=== PATIENT | male | born 1960 | race African-American/Black ===

== ENCOUNTER 2017-02-20 10:13 | Inpatient (IN) | payer OTHER ==
--- NOTE | 2017-02-20 10:45 | PDOC ---
History of Present Illness - General Chief Complaint: Chest Pain Stated Complaint: CHEST PAIN, SOB Time Seen by Provider: 02/20/17 10:30 History Source: Patient Exam Limitations: No Limitations Past History - Past Medical History Allergies/Adverse Reactions: Allergies Allergy/AdvReac Type Severity Reaction Status Date / Time No Known Allergies Allergy Verified 02/20/17 10:14 Home Medications: Ambulatory Orders Amlodipine Besylate 1 tab PO DAILY 03/14/16 Enalapril Maleate 1 tab PO BID 03/14/16 Hydralazine HCl 1 tab PO BID 03/14/16 HTN: Yes Other medical history: SLEEP APNEA,MORBID OBESITY - Psycho/Social/Smoking Cessation Hx Anxiety: No Suicidal Ideation: No Smoking History: Never smoked Have you smoked in the past 12 months: No Information on smoking cessation initiated: No Hx Alcohol Use: No Drug/Substance Use Hx: No Substance Use Type: None *Physical Exam - Vital Signs Last Vital Signs Temp Pulse Resp BP Pulse Ox 98.0 F 69 24 151/94 91 L 02/20/17 10:15 02/20/17 10:15 02/20/17 10:15 02/20/17 10:15 02/20/17 10:15 Heart Score/ECG Review #1 ECG reviewed & interpreted by me at: 10:47 - ECG Intrepretation Comment:: 02/20/17 10:47 Twelve-lead EKG was performed and reviewed by me. There is normal sinus rhythm with a normal rate of 67 bpm. The axis is normal. The intervals are normal - pr: 198ms, QRS:100ms QTc:464. There are no ST or T wave abnormalities. Impression: Normal twelve-lead EKG
[2017-02-20 11:14] LABS: BASOPHIL 0.9 % (0-2.0); MCHC 31.3 g/dl (32.0-35.9); MEAN PLT VOLUME 8.5 fl (7.5-11.1); NEUTROPHILS 69.5 % (42.8-82.8); PLATELET COUNT 149 K/MM3 (134-434); RDW 18.9 % (11.9-15.9); WHITE BLOOD COUNT 5.5 K/mm3 (4.0-10.0)
[2017-02-20 11:26] LABS: INR 1.18 (0.82-1.09)
--- NOTE | 2017-02-20 11:28 | PDOC ---
History of Present Illness - General Chief Complaint: Chest Pain Stated Complaint: CHEST PAIN, SOB Time Seen by Provider: 02/20/17 10:30 History Source: Patient Exam Limitations: No Limitations - History of Present Illness Initial Comments: 57 yo M with h/o HTN, ?COPD, ?CHF, chronic venous stasis, chronic kidney failure presented to the ED with increasing shortness of breath. Patient stated that he's experiencing increasing exercise intolerance in that he can only walk less than a block and uses 2-3 pillows in order to breath smoothly. He also had intermittent exertional chest pain, 6/10, felt like chip in the heart, resolves in minutes, non-radiating. He denies active chest pain on this admission. Further denies fever, chills, cough, n/v, abd pain, headache, urinary or bowel movement. Past History - Travel Traveled outside of the country in the last 30 days: No - Past Medical History Allergies/Adverse Reactions: Allergies Allergy/AdvReac Type Severity Reaction Status Date / Time No Known Allergies Allergy Verified 02/20/17 10:14 Home Medications: Ambulatory Orders Amlodipine Besylate [Norvasc -] 5 mg PO DAILY 02/20/17 Aspirin [ASA -] 81 mg PO DAILY 02/20/17 Enalapril Maleate [Vasotec] 20 mg PO DAILY 02/20/17 Furosemide [Lasix] 80 mg PO DAILY 02/20/17 Hydralazine HCl 100 mg PO BID 02/20/17 Labetalol HCl [Normodyne -] 600 mg PO BID 02/20/17 Simvastatin [Zocor -] 20 mg PO HS 02/20/17 COPD: Yes (Possible but Patient denies) CHF: Yes (Possible but Patient denies) HTN: Yes Other medical history: SLEEP APNEA,MORBID OBESITY - Psycho/Social/Smoking Cessation Hx Anxiety: No Suicidal Ideation: No Smoking History: Never smoked Have you smoked in the past 12 months: No Information on smoking cessation initiated: No Hx Alcohol Use: No Drug/Substance Use Hx: No Substance Use Type: None Respiratory Specific PMHX - Complaint Specific PMHX Angina: Yes (intermittent) Review of Systems - Review of Systems Respiratory: Yes: Shortness of Breath, SOB with Exertion Cardiac (ROS): Yes: Chest Pain *Physical Exam - Vital Signs Last Vital Signs Temp Pulse Resp BP Pulse Ox 98.0 F 69 24 151/94 91 L 02/20/17 10:15 02/20/17 10:15 02/20/17 10:15 02/20/17 10:15 02/20/17 10:15 - Physical Exam General Appearance: No: Apparent Distress HEENT: positive: Pharynx Normal. negative: Pharyngeal Erythema, Tonsillar Exudate Neck: positive: Trachea midline, Supple Respiratory/Chest: positive: Rhonchi Cardiovascular: positive: Regular Rhythm, Regular Rate, S1, S2. negative: Diastolic Murmur, Systolic Murmur, Gallop/S3, Gallop/S4 Gastrointestinal/Abdominal: positive: Normal Bowel Sounds, Other (obese) Extremity: positive: Swelling (+2) Neurologic: positive: Fully Oriented, Alert, Normal Mood/Affect ED Treatment Course - LABORATORY CBC & Chemistry Diagram: 02/21/17 06:20 02/22/17 06:20 Medical Decision Making - Medical Decision Making 02/20/17 11:32 Awaits CBC, CMP, Mg, BNP, CXR results 02/20/17 13:[address] Damon, will admit patient to telemetry for further management. Renal consult under Dr. Woodson, pulmonary consult under Dr. Michael and Cardiology consult under Dr. Hickman. *DC/Admit/Observation/Transfer Diagnosis at time of Disposition: Exacerbation of chronic obstructive pulmonary disease associated with exposure to volcanic air pollution - Discharge Dispostion Admit: Yes Decision to Admit order Date/Time: 02/20/17 13:[address] Damon, will admit patient to telemetry for further management. Renal consult under Dr. Woodson, pulmonary consult under Dr. Michael and Cardiology consult under Dr. Hickman. - Referrals
[2017-02-20 11:31] LABS: ALBUMIN 2.8 g/dl (3.4-5.0); BILIRUBIN,TOTAL 0.5 mg/dL (0.2-1.0); COCKROFT - GAULT 24.43; CREATININE 6.8 mg/dL (0.7-1.3); TOT PROT 6.1 g/dl (6.4-8.2)
[2017-02-20 11:34] LABS: TROPONIN I 0.05 ng/ml (0.00-0.05)
[2017-02-20] MEDS ORDERED: SODIUM POLYSTYRENE SULFONATE 15 GM/60 ML BOTTLE PO ONE (13:43)
[2017-02-20] MEDS ORDERED: CALCIUM GLUCONATE 10% - 1,000 MG/10 ML VIAL IVPUSH ONE (13:50)
[2017-02-20] MEDS ORDERED: CALCIUM GLUCONATE 10% - 1,000 MG/10 ML VIAL IVPB ONE (13:50)
--- NOTE | 2017-02-20 14:35 | PDOC ---
Attending Attestation - Resident Resident Name: Guilherme Bautista - ED Attending Attestation I have performed the following: I have examined & evaluated the patient, The case was reviewed & discussed with the resident, I agree w/resident's findings & plan, Exceptions are as noted - HPI HPI: 02/20/17 14:18 This is a 57 yo M h/o renal insufficiency, DM, HTN Presenting to the ER with a complaint of progressive shortness of breath Decreased urine output No fevers or chills No abdominal pain - Physicial Exam PE: 02/21/17 19:59 Nad, fatigued jvd elevated, neck supple rrr nl s1, s2 2/6 sys murmur at apex diffuse crackles/wheezes, poor air movement. + bs soft nt nd ext with 1+ le edema L>R. no cyanosis, clubbing no jaundice, diaphoresis - Critical Care Time Total Critical Care Time: 35 Critical Care Statement: The care of this patient involved high complexity decision making to prevent further life threatening deterioration of the patient 's condition and/or to evalute & treat vital organ system(s) failure or risk of failure. - Medical Decision Making 57 yo M presenting with signs of fluid overloading in the setting of worsening renal function Labs performed and demonstrate elevated creatinine, K=5.6 No peaked T waves, will give Calcium Gluconate Consult placed to Dr Mancia who has seen this patient in the ER Pt admitted
[2017-02-20 14:55] LABS: URINE APPEARANCE CLEAR; URINE BILIRUBIN NEGATIVE (NEGATIVE); URINE BLOOD NEGATIVE (NEGATIVE); URINE COLOR LTYELLOW; URINE GLUCOSE (UA) NEGATIVE (NEGATIVE); URINE KETONE NEGATIVE (NEGATIVE); URINE LEUK ESTERASE NEGATIVE (NEGATIVE); URINE NITRITE NEGATIVE (NEGATIVE); URINE UROBILINOGEN NEGATIVE E.U./dl (0.2-1.0)
[2017-02-20 14:57] LABS: URINE PROTEIN 2+ (NEGATIVE)
[2017-02-20 15:07] LABS: URINE BACTERIA RARE /hpf (NONE SEEN); URINE RBC 3 /hpf (0-3); URINE WBC 4 /hpf (3-5)
--- NOTE | 2017-02-20 15:32 | CONSULT ---
Consult Consult Specialty:: Nephrology Reason for Consultation:: CKD - History of Present Illness Chief Complaint: shortness of breath History of Present Illness: Pt is a 57 year old male with pmhx of HTN, COPD, CHF, and CKD who presents to the ER with increasing shortness of breath and wheeze. He says he feels increased SOB with minimal exertion. He says he is aware that he has chronic kidney disease however he has not seen a mine motor engineer yet. He also complains of lower extermity edema. He does take lasix at home. He denies dysuria or hematuria. He is unsure of the etiology of his kidney disease. - History Source History Provided By: Patient, Medical Record - Past Medical History Cardio/Vascular: Yes: CHF, HTN, Hyperlipdemia Renal/: Yes: Renal Inusuff - Alcohol/Substance Use Hx Alcohol Use: No - Smoking History Smoking history: Never smoked Have you smoked in the past 12 months: No Home Medications - Allergies Allergies/Adverse Reactions: Allergies Allergy/AdvReac Type Severity Reaction Status Date / Time No Known Allergies Allergy Verified 02/20/17 10:14 - Home Medications Home Medications: Ambulatory Orders Amlodipine Besylate [Norvasc -] 5 mg PO DAILY 02/20/17 Aspirin [ASA -] 81 mg PO DAILY 02/20/17 Enalapril Maleate [Vasotec] 20 mg PO DAILY 02/20/17 Furosemide [Lasix] 80 mg PO DAILY 02/20/17 Hydralazine HCl 100 mg PO BID 02/20/17 Labetalol HCl [Normodyne -] 600 mg PO BID 02/20/17 Simvastatin [Zocor -] 20 mg PO HS 02/20/17 Family Disease History - Family Disease History Family History: Denies Review of Systems - Review of Systems Constitutional: reports: Malaise Eyes: reports: No Symptoms HENT: reports: No Symptoms Neck: reports: No Symptoms Cardiovascular: reports: Edema, Shortness of Breath Respiratory: reports: Cough, SOB, SOB on Exertion, Wheezing Gastrointestinal: reports: No Symptoms Genitourinary: reports: No Symptoms Musculoskeletal: reports: No Symptoms Integumentary: reports: No Symptoms Endocrine: reports: No Symptoms Hematology/Lymphatic: reports: No Symptoms Psychiatric: reports: No Symptoms Physical Exam Vital Signs: Vital Signs Temperature 98.0 F 02/20/17 10:15 Pulse Rate 62 02/20/17 15:22 Respiratory Rate 21 02/20/17 15:22 Blood Pressure 139/71 02/20/17 15:22 O2 Sat by Pulse Oximetry (%) 97 02/20/17 15:22 Constitutional: Yes: Calm Eyes: Yes: Conjunctiva Clear HENT: Yes: Atraumatic Neck: Yes: Supple Cardiovascular: Yes: S1, S2 Respiratory: Yes: CTA Bilaterally Gastrointestinal: Yes: Soft, Abdomen, Obese Renal/: Yes: WNL Musculoskeletal: Yes: WNL Edema: Yes Edema: LLE: 2+, RLE: 2+ Neurological: Yes: Oriented Psychiatric: Yes: Oriented Labs: Laboratory Tests 02/20/17 02/20/17 02/20/17 10:53 10:53 10:53 WBC 5.5 Hgb 8.4 L Plt Count 149 INR 1.18 H Sodium 141 Potassium 5.7 H Chloride 109 H Carbon Dioxide 19 L Anion Gap 13 BUN 70 H Creatinine 6.8 H Creat Clearance w eGFR 8.46 Random Glucose 86 Calcium 8.0 L B-Natriuretic Peptide Urine Color Urine Appearance Urine pH Ur Specific [place] Urine Protein Urine Glucose (UA) Urine Ketones Urine Blood Urine Nitrite Urine Bilirubin Urine Urobilinogen Ur Leukocyte Esterase 02/20/17 02/20/17 10:53 14:32 WBC Hgb Plt Count INR Sodium Potassium Chloride Carbon Dioxide Anion Gap BUN Creatinine Creat Clearance w eGFR Random Glucose Calcium B-Natriuretic Peptide 60943.52 H Urine Color Ltyellow Urine Appearance Clear Urine pH 5.0 Ur Specific [place] 1.011 Urine Protein 2+ H Urine Glucose (UA) Negative Urine Ketones Negative Urine Blood Negative Urine Nitrite Negative Urine Bilirubin Negative Urine Urobilinogen Negative Ur Leukocyte Esterase Negative Imaging - Results Chest X-ray: Report Reviewed Problem List - Problems (1) CKD (chronic kidney disease) Code(s): N18.9 - CHRONIC KIDNEY DISEASE, UNSPECIFIED (2) HTN (hypertension) Code(s): I10 - ESSENTIAL (PRIMARY) HYPERTENSION (3) CHF (congestive heart failure) Code(s): I50.9 - HEART FAILURE, UNSPECIFIED (4) Hyperkalemia Code(s): E87.5 - HYPERKALEMIA Assessment/Plan Current Medications Generic Name Dose Route Start Last Admin Trade Name Freq PRN Reason Stop Dose Admin Amlodipine Besylate 5 mg 02/21/17 10:00 Norvasc - PO DAILY MEME Aspirin 81 mg 02/21/17 10:00 Asa - PO DAILY MEME Atorvastatin Calcium 10 mg 02/20/17 22:00 Lipitor - PO HS MEME Furosemide 80 mg 02/21/17 10:00 Lasix - PO DAILY MEME Heparin Sodium (Porcine) 5,000 unit 02/20/17 18:00 Heparin - SQ Q8H-IV MEME Hydralazine HCl 100 mg 02/20/17 22:00 Apresoline - PO BID MEME Labetalol HCl 600 mg 02/20/17 22:00 Normodyne - PO BID MEME Impression 1. CKD with unclear baseline 2. CHF 3. HTN 4. obesity 5. hyperlipidemia 6. hyperkalemia Plan - place joel catheter and monitor output - will send prelim renal workup - will consult vascular Dr Hernandez - will need to obtain outpt records - recommend holding ale inhibitor for now (pt was on vasotec) - will treat potassium medically - discussed possibility of HD with pt - get echo - monitor pulse ox - will follow Dr Mancia
--- NOTE | 2017-02-20 15:33 | CON.CARD ---
Cardiology Consult (text) - Consultation Consultation Note: CC: sob 57 yo HTN, HPL,morbid obesity, CAD (ab stress - tx medically due to high risk for ATN) severe KIM, ESRD who presents with sob. poor historian. states he developed a cold in the past day. + sob, cough, nasal congestion, myalgias, fatigue. endoreses adherence to lasix + orthopnea, pnd, LE edema, no cp, palps, no f/c/s, n/v/d, visual disturbances, rashes. Used to see Dr. Rasheed pmhx/pshx; per hpi fam hx: no cardiac hx social hx: former tobacco, no etoh ros: per phi Ambulatory Orders Amlodipine Besylate [Norvasc -] 5 mg PO DAILY 02/20/17 Aspirin [ASA -] 81 mg PO DAILY 02/20/17 Enalapril Maleate [Vasotec] 20 mg PO DAILY 02/20/17 Furosemide [Lasix] 80 mg PO DAILY 02/20/17 Hydralazine HCl 100 mg PO BID 02/20/17 Labetalol HCl [Normodyne -] 600 mg PO BID 02/20/17 Simvastatin [Zocor -] 20 mg PO HS 02/20/17 Current Medications Amlodipine Besylate (Norvasc -) 5 mg PO DAILY MEME Aspirin (Asa -) 81 mg PO DAILY MEME Atorvastatin Calcium (Lipitor -) 10 mg PO HS MEME Furosemide (Lasix -) 80 mg PO DAILY [facility] Heparin Sodium (Porcine) (Heparin -) 5,000 unit SQ Q8H-IV MEME Hydralazine HCl (Apresoline -) 100 mg PO BID [facility]E Labetalol HCl (Normodyne -) 600 mg PO BID [facility] Vital Signs - 24 hr 02/20/17 02/20/17 02/20/17 10:15 14:15 15:22 Temperature 98.0 F Pulse Rate 69 Pulse Rate [ 63 62 Apical] Respiratory 24 18 21 Rate Blood Pressure 151/94 Blood Pressure 144/75 139/71 [Left Arm] O2 Sat by Pulse 91 L 97 97 Oximetry (%) Intake & Output 02/18/17 02/19/17 02/20/17 02/21/17 07:59 07:59 07:59 07:59 Output Total 200 Balance -200 Weight 314 lb Nad, fatigued jvd elevated, neck supple rrr nl s1, s2 2/6 sys murmur at apex diffuse crackles/wheezes, poor air movement. tachypneic + bs soft nt nd ext with 1+ le edema. no cyanosis, clubbing diminished dp/pt no jaundice, diaphoresis no carotid bruit CBC, BMP 02/20/17 10:53 02/20/17 10:53 Laboratory Tests 02/20/17 02/20/17 02/20/17 10:53 10:53 14:32 Total Bilirubin 0.5 AST 25 ALT 25 Alkaline Phosphatase 66 Creatine Kinase 249 CK-MB (CK-2) 6.616 H Troponin I 0.05 B-Natriuretic Peptide 96403.52 H Albumin 2.8 L Urine Protein 2+ H EKG: nsr, no ischemic changes. CXR: clear. by my review mild pulmonary congestion, possible effusion. Echo 07/2014: normal LV/RV function, mod concentric LVH, no sig valv abn Echo 03/2013: normal LV/RV function, mild tp mod concentric LVH, no sig valv abn Stress MPI 03/2013: moderate anny-lateral scar and infero-lateral ischemia. enlarged LV 57 yo HTN, HPL,morbid obesity, CAD (ab stress - tx medically due to high risk for ATN) severe KIM, ESRD who presents with sob. SOB - Oxygenating well. Unclear if tired or if lethargic. If sleepiness persists tomorrow would get ABG to rule out hypercapnea. - by my review pulmonary congestion on cxr. s/p lasix 80mg IV in ER. Reassess regimen tomorrow - daily weights, i/o, bmp. need for HD per renal - pt with severe kim and desaturation on sleep study, bipap at night. eval/mgm' t of additional copd per pulm CAD - trop negative. ekg without acute ischemic changes - asa, statin. low threshold to hold beta sanket if my be contributing to bronchospasm. htn - controlled on current meds kim - bipap esrd -per renal
[2017-02-20] MEDS ORDERED: DEXTROSE 50%-WATER 50 ML DISP.SYRIN ONE (15:46)
[2017-02-20] MEDS ORDERED: INSULIN REGULAR HUMAN 100 UNITS/ML *VIAL ONE (15:47)
[2017-02-20] MEDS ORDERED: FUROSEMIDE 40 MG/4 ML INJECTABLE VIAL ONE (15:47)
[2017-02-20] MEDS: ALBUTEROL SO4 0.083% IH SOL 2.5 MG/3 ML VIAL.NEB. NEB SCH ×3 (15:53→17:24)
[2017-02-20] MEDS: INSULIN REGULAR HUMAN 100 UNITS/ML *VIAL IVPUSH ONE ×2 (15:53→16:13)
[2017-02-20] MEDS: DEXTROSE 50%-WATER 50 ML VIAL IVPUSH ONE ×2 (15:53→16:13)
[2017-02-20] MEDS: FUROSEMIDE 100 MG/10 ML INJECTABLE VIAL IVPB SCH ×2 (15:53→16:13)
[2017-02-20] MEDS ORDERED: ALBUTEROL SO4 0.083% IH SOL 2.5 MG/3 ML VIAL.NEB. NEB ONE (16:47)
[2017-02-20 18:07] LABS: CALCIUM 8.4 mg/dL (8.5-10.1); COCKROFT - GAULT 24.08; CREATININE 6.9 mg/dL (0.7-1.3)
[2017-02-20] MEDS ORDERED: HEPARIN NA (PORCINE) 5,000 UNITS/ML 1ML VIAL ONE (18:39)
[2017-02-20] MEDS: HEPARIN NA (PORCINE) 5,000 UNITS/ML 1ML VIAL SQ SCH (18:40)
--- NOTE | 2017-02-20 20:54 | PN ---
Progress Note (short form) - Note Progress Note: Laboratory Tests 02/20/17 17:17 Sodium 141 Potassium 5.3 H Carbon Dioxide 21 Anion Gap 12 BUN 71 H Creatinine 6.9 H Random Glucose 124 H D Labs reviewed. Potassium is improving. Repeat labs in am. Problem List - Problems (1) CKD (chronic kidney disease) Code(s): N18.9 - CHRONIC KIDNEY DISEASE, UNSPECIFIED (2) HTN (hypertension) Code(s): I10 - ESSENTIAL (PRIMARY) HYPERTENSION (3) CHF (congestive heart failure) Code(s): I50.9 - HEART FAILURE, UNSPECIFIED (4) Hyperkalemia Code(s): E87.5 - HYPERKALEMIA
[2017-02-20] MEDS ORDERED: hydrALAZINE HCL 25 MG TABLET (FP) ONE (22:23)
[2017-02-20] MEDS ORDERED: LABETALOL HCL 100 MG TABLET (FP) ONE ×2 (22:23→23:15)
[2017-02-20] MEDS ORDERED: ATORVASTATIN CA 40 MG TABLET (FP) ONE (22:23)
[2017-02-20] MEDS: ATORVASTATIN CA 10 MG TABLET (FP) PO SCH (23:23)
[2017-02-20] MEDS: LABETALOL HCL 200 MG TABLET (FP) PO SCH (23:23)
[2017-02-20] MEDS: hydrALAZINE HCL 50 MG TABLET (FP) PO SCH (23:23)
[2017-02-21] MEDS ORDERED: HEPARIN NA (PORCINE) 5,000 UNITS/ML 1ML VIAL ONE ×2 (01:51→19:22)
[2017-02-21] MEDS: HEPARIN NA (PORCINE) 5,000 UNITS/ML 1ML VIAL SQ SCH ×3 (01:52→19:34)
[2017-02-21 07:56] LABS: BASOPHIL 0.7 % (0-2.0); EOSINOPHIL 10.8 % (0-4.5); MCH 26.2 pg (25.7-33.7); MCHC 30.9 g/dl (32.0-35.9); MEAN CELL VOLUME 84.6 fl (80-96); MEAN PLT VOLUME 8.8 fl (7.5-11.1); NEUTROPHILS 70.5 % (42.8-82.8); PLATELET COUNT 158 K/MM3 (134-434); RDW 18.7 % (11.9-15.9); WHITE BLOOD COUNT 5.7 K/mm3 (4.0-10.0)
[2017-02-21 08:04] LABS: INR 1.08 (0.82-1.09); PROTHROMBIN TIME (PATIENT) 11.9 SEC (9.98-11.88)
[2017-02-21 08:07] LABS: ACTIVATED PTT 30.2 SECONDS (26.9-34.4)
[2017-02-21 08:13] LABS: CALCIUM 8.4 mg/dL (8.5-10.1); COCKROFT - GAULT 22.76; CREATININE 7.3 mg/dL (0.7-1.3); MAGNESIUM 2.3 mg/dL (1.8-2.4); TOT PROT 6.4 g/dl (6.4-8.2)
[2017-02-21 08:15] LABS: BILIRUBIN,TOTAL 0.3 mg/dL (0.2-1.0)
--- NOTE | 2017-02-21 09:56 | HP ---
Admitting History and Physical - Primary Care Physician PCP: Ed Boyer - Admission Chief Complaint: SOB, renal failure History of Present Illness: 57 yrs old male with severe KIM, obesity, HTN , hyperlipidemia, CAD and CKD comes to ER with worsening SOB. He has been having progressive SOB for many weeks. Also c/o pressure sensation to the chest , no radiation. Pt examined by me in ER-- he is drowsy , uses CPAP History Source: Patient Limitations to Obtaining History: No Limitations - Past Medical History Cardiovascular: Yes: CHF, HTN, Hyperlipdemia Pulmonary: Yes: Sleep Apnea Renal/: Yes: Renal Inusuff - Smoking History Smoking history: Never smoked Have you smoked in the past 12 months: No - Alcohol/Substance Use Hx Alcohol Use: No Home Medications - Allergies Allergies/Adverse Reactions: Allergies Allergy/AdvReac Type Severity Reaction Status Date / Time No Known Allergies Allergy Verified 02/20/17 10:14 - Home Medications Home Medications: Ambulatory Orders Amlodipine Besylate [Norvasc -] 5 mg PO DAILY 02/20/17 Aspirin [ASA -] 81 mg PO DAILY 02/20/17 Enalapril Maleate [Vasotec] 20 mg PO DAILY 02/20/17 Furosemide [Lasix] 80 mg PO DAILY 02/20/17 Hydralazine HCl 100 mg PO BID 02/20/17 Labetalol HCl [Normodyne -] 600 mg PO BID 02/20/17 Simvastatin [Zocor -] 20 mg PO HS 02/20/17 Review of Systems - Review of Systems Constitutional: reports: Weakness. denies: Chills, Fever, Loss of Appetite Cardiovascular: reports: Chest Pain, Shortness of Breath Respiratory: reports: SOB on Exertion. denies: Cough Physical Examination Vital Signs: Vital Signs Temperature 97.4 F L 02/21/17 08:00 Pulse Rate 68 02/21/17 08:00 Respiratory Rate 20 02/21/17 08:00 Blood Pressure 143/71 02/21/17 08:00 O2 Sat by Pulse Oximetry (%) 97 02/21/17 00:12 Constitutional: Yes: No Distress, Calm Cardiovascular: Yes: Regular Rate and Rhythm, Murmur Respiratory: Yes: Diminished, Rales, Rhonchi Gastrointestinal: Yes: Normal Bowel Sounds, Soft, Abdomen, Obese. No: Distention, Tenderness Edema: Yes Edema: LLE: 2+, RLE: 2+ Psychiatric: Yes: Alert Labs: CBC, BMP 02/21/17 06:20 02/21/17 06:20 Imaging - Results Chest X-ray: Image Reviewed (no infiltrate) Ultrasound: Report Reviewed (renal sono- multiple renal cysts, no dvt in legs sono) EKG: Image Reviewed (NSR, left atria enlargement) Problem List - Problems (1) Acute on chronic respiratory failure with hypoxia and hypercapnia Assessment/Plan: Check ABG Pulmonary eval will need CPAP nebs as needed Code(s): J96.21 - ACUTE AND CHRONIC RESPIRATORY FAILURE WITH HYPOXIA J96.22 - ACUTE AND CHRONIC RESPIRATORY FAILURE WITH HYPERCAPNIA (2) CHF (congestive heart failure) Assessment/Plan: check Echo on IV Lasix renal function worsening spoke with Public Health Sanitarian Technician Code(s): I50.9 - HEART FAILURE, UNSPECIFIED Qualifiers: Congestive heart failure type: diastolic Congestive heart failure chronicity: acute on chronic Qualified Code(s): I50.33 - Acute on chronic diastolic (congestive) heart failure (3) CKD (chronic kidney disease) Code(s): N18.9 - CHRONIC KIDNEY DISEASE, UNSPECIFIED (4) HTN (hypertension) Assessment/Plan: on meds monitor BP Code(s): I10 - ESSENTIAL (PRIMARY) HYPERTENSION Qualifiers: Hypertension type: essential hypertension Qualified Code(s): I10 - Essential (primary) hypertension (5) Hyperkalemia Code(s): E87.5 - HYPERKALEMIA (6) Sleep apnea Assessment/Plan: start CPAP Code(s): G47.30 - SLEEP APNEA, UNSPECIFIED Qualifiers: Sleep apnea type: obstructive Qualified Code(s): G47.33 - Obstructive sleep apnea (adult) (pediatric) (7) Acute on chronic renal failure Assessment/Plan: Worsening renal function pt does not have much urine out put Spoke with Renal Pt agreed for dialysis Monitor for hyperkalemia DVT prophylaxis-- Heparin sc Code(s): N17.9 - ACUTE KIDNEY FAILURE, UNSPECIFIED N18.9 - CHRONIC KIDNEY DISEASE, UNSPECIFIED
[2017-02-21] MEDS ORDERED: FUROSEMIDE 40 MG TABLET (FP) PO SCH (10:00)
[2017-02-21] MEDS ORDERED: ALBUTEROL SO4 2.5/IPRATROPIUM 0.5 INH SOL 3 ML VIAL.NEB. NEB PRN (10:09)
[2017-02-21] MEDS: hydrALAZINE HCL 50 MG TABLET (FP) PO SCH ×2 (10:17→23:29)
[2017-02-21] MEDS: ASPIRIN 81 MG CHEWABLE TABLETS PO SCH (10:17)
[2017-02-21] MEDS: amLODIPine BESYLATE 5 MG TABLET (FP) PO SCH (10:18)
[2017-02-21] MEDS: LABETALOL HCL 200 MG TABLET (FP) PO SCH ×2 (10:18→23:29)
[2017-02-21] MEDS: FUROSEMIDE 100 MG/10 ML INJECTABLE VIAL IVPB SCH ×2 (10:18→23:39)
--- NOTE | 2017-02-21 10:20 | PN ---
Progress Note (short form) - Note Progress Note: CC: sob S: breathing somewhat improved. not as fatigued. K improved yesterday after lasix, but elevated again this morning. no cp, palps, dizziness. Current Medications Albuterol/Ipratropium (Duoneb -) 1 amp NEB Q4H PRN PRN Reason: SHORTNESS OF BREATH Amlodipine Besylate (Norvasc -) 5 mg PO DAILY [facility] Last Admin: 02/21/17 10:18 Dose: 5 mg Aspirin (Asa -) 81 mg PO DAILY [facility] Last Admin: 02/21/17 10:17 Dose: 81 mg Atorvastatin Calcium (Lipitor -) 10 mg PO HS [facility] Last Admin: 02/20/17 23:23 Dose: 10 mg Furosemide (Lasix Injection -) 80 mg IVPB DAILY [facility] Last Admin: 02/21/17 10:18 Dose: 80 mg Heparin Sodium (Porcine) (Heparin -) 5,000 unit SQ Q8H-IV [facility] Last Admin: 02/21/17 10:17 Dose: 5,000 unit Hydralazine HCl (Apresoline -) 100 mg PO BID [facility] Last Admin: 02/21/17 10:17 Dose: 100 mg Labetalol HCl (Normodyne -) 600 mg PO BID [facility] Last Admin: 02/21/17 10:18 Dose: 600 mg Vital Signs - 24 hr 02/20/17 02/20/17 02/20/17 14:15 15:22 23:31 Temperature 97.3 F L Pulse Rate 66 Pulse Rate [ 63 62 Apical] Respiratory 18 21 18 Rate Blood Pressure 154/81 Blood Pressure 144/75 139/71 [Left Arm] O2 Sat by Pulse 97 97 Oximetry (%) 02/21/17 02/21/17 02/21/17 00:12 01:33 05:40 Temperature 97.9 F 98 F Pulse Rate 57 L 61 Pulse Rate [ Apical] Respiratory 19 18 Rate Blood Pressure 123/69 133/76 Blood Pressure [Left Arm] O2 Sat by Pulse 97 Oximetry (%) 02/21/17 08:00 Temperature 97.4 F L Pulse Rate 68 Pulse Rate [ Apical] Respiratory 20 Rate Blood Pressure 143/71 Blood Pressure [Left Arm] O2 Sat by Pulse Oximetry (%) Intake & Output 02/19/17 02/20/17 02/21/17 02/22/17 07:59 07:59 07:59 07:59 Output Total 2300 Balance -2300 Weight 314 lb Nad, fatigued jvd elevated, neck supple rrr nl s1, s2 2/6 sys murmur at apex diffuse crackles/wheezes, poor air movement. nl effort + bs soft nt nd ext with 1+ le edema L>R. no cyanosis, clubbing diminished dp/pt no jaundice, diaphoresis no carotid bruit CBC, BMP 02/21/17 06:20 02/21/17 06:20 Laboratory Tests 02/20/17 02/21/17 02/21/17: 06:20 06:20 INR 1.08 Potassium 5.3 H Magnesium 2.3 Total Bilirubin 0.3 D AST 12 L D ALT 25 Alkaline Phosphatase 71 Albumin 3.0 L Triglycerides 58 Cholesterol 88 Total LDL Cholesterol 42 HDL Cholesterol 42 EKG: nsr, no ischemic changes. CXR: clear. by my review mild pulmonary congestion, possible effusion. Echo 07/2014: normal LV/RV function, mod concentric LVH, no sig valv abn Echo 03/2013: normal LV/RV function, mild tp mod concentric LVH, no sig valv abn Stress MPI 03/2013: moderate anny-lateral scar and infero-lateral ischemia. enlarged LV 57 yo HTN, HPL,morbid obesity, CAD (ab stress - tx medically due to high risk for ATN) severe KIM, ESRD who presents with sob. SOB - Oxygenating well. - by my review pulmonary congestion on cxr. s/p lasix 80mg IV in ER yesterday with improvement in hyperkalemia. today 02/21 with worsened renal failure and hyperkalemia, redose lasix. Will discuss with renal regarding need for HD. Increase lasix to 80 bid. - daily weights, i/o, bmp. need for HD per renal - pt with severe kim and desaturation on sleep study, recommend bipap at night. Patient clarifies that he was not a smoker, wheezes likely cardiac. diuresis as above. - Recent URI, infectious/flu work up per pmd. acute diastolic and possibly right heart failure exacerbation - may be exacerbated by volume overload from ESRD. Patient also states he has recently started brushing teeth with baking soda and was drinking some of the baking soda as a result. hyperkalemia - telemetry monitoring. renal following. CAD - trop negative. ekg without acute ischemic changes - asa, statin bb, . htn - controlled on current meds kim - bipap esrd -per renal LE edema - asymmetric, hx of sedentary --> works as a technical business systems analyst. Will get vascular u/s
[2017-02-21] MEDS ORDERED: SODIUM POLYSTYRENE SULFONATE 15 GM/60 ML BOTTLE PO ONE ×2 (12:25→22:00)
[2017-02-21] MEDS ORDERED: DEXTROSE 50%-WATER 50 ML VIAL IVPUSH ONE (12:26)
[2017-02-21] MEDS ORDERED: ALBUTEROL SO4 0.083% IH SOL 2.5 MG/3 ML VIAL.NEB. NEB PRN (12:26)
[2017-02-21] MEDS ORDERED: SODIUM BICARBONATE 8.4% 50 MEQ/50 ML DISP.SYRIN IV ONE (12:26)
[2017-02-21] MEDS ORDERED: INSULIN REGULAR HUMAN 100 UNITS/ML *VIAL IVPUSH ONE (12:26)
[2017-02-21 12:27] LABS: ARTERIAL BLD GAS O2 SATURATION 86.6 % (90-98.9); ARTERIAL BLOOD GAS BASE EXCESS -6.1 meq/l (-2-2); ARTERIAL BLOOD GAS HCO3 21.1 meq/L (22-26); ARTERIAL BLOOD GAS PO2 59.5 mmHg (80-100)
[2017-02-21 12:35] LABS: ALLENS TEST POSITIVE; ART PUNCT SITE LEFT RADIAL; LPM/O2% 2L; PT. ON O2? YES; TYPE OF O2 NASAL CANNULA
[2017-02-21 12:36] LABS: ARTERIAL BLOOD GAS pH 7.21 (7.35-7.45)
--- NOTE | 2017-02-21 13:39 | EKG ---
Test Reason : Blood Pressure : / mmHG Vent. Rate : 067 BPM Atrial Rate : 067 BPM P-R Int : 198 ms QRS Dur : 100 ms QT Int : 440 ms P-R-T Axes : 049 -12 068 degrees QTc Int : 464 ms NORMAL SINUS RHYTHM POSSIBLE LEFT ATRIAL ENLARGEMENT POOR R WAVE PROGRESSION BORDERLINE ECG NO PREVIOUS ECGS AVAILABLE CLINICAL CORRELATION IS RECOMMENDED Confirmed by FADI MOLINA MD ([id number]) on 02/21/2017 1:39:00 PM Referred By: Confirmed By:FADI MOLINA MD
[2017-02-21] MEDS ORDERED: SODIUM POLYSTYRENE SULFONATE 15 GM/60 ML BOTTLE ONE ×2 (15:55→22:38)
[2017-02-21] MEDS ORDERED: DEXTROSE 50%-WATER 50 ML DISP.SYRIN ONE (15:55)
[2017-02-21] MEDS ORDERED: ALBUTEROL SO4 0.083% IH SOL 2.5 MG/3 ML VIAL.NEB. NEB ONE (15:55)
[2017-02-21] MEDS ORDERED: INSULIN (NOVOLOG) ASPART 100 UNITS/ML 10ML VIAL ONE (15:56)
[2017-02-21] MEDS ORDERED: SODIUM BICARBONATE 8.4% - 50 ML ONE (16:13)
[2017-02-21 17:04] LABS: CALCIUM 8.2 mg/dL (8.5-10.1)
[2017-02-21 17:10] LABS: COCKROFT - GAULT 21.86
[2017-02-21 17:14] LABS: CREATININE 7.6 mg/dL (0.7-1.3)
--- NOTE | 2017-02-21 18:24 | PN ---
Progress Note (short form) - Note Progress Note: PULMONARY CONSULTATION DICTATED 02/21/17 IMP ACUTE HYPOXEMIC/HYPERCAPNEIC RESPIRATORY FAILURE COPD CHF CHRONIC RENAL FAILURE HTN OSAS PLAN BIPAP LASIX INHALED BRONCHODILATORS O2 STEROIDS X 24 HRS F/U ABG DAILY WTS MONITOR LYTES ? HD PER RENAL STRICT I+OS F/U CHEST X-RAY DR BLUM Problem List - Problems (1) CHF (congestive heart failure) Code(s): I50.9 - HEART FAILURE, UNSPECIFIED Qualifiers: Congestive heart failure type: diastolic Congestive heart failure chronicity: acute on chronic Qualified Code(s): I50.33 - Acute on chronic diastolic (congestive) heart failure (2) CKD (chronic kidney disease) Code(s): N18.9 - CHRONIC KIDNEY DISEASE, UNSPECIFIED (3) HTN (hypertension) Code(s): I10 - ESSENTIAL (PRIMARY) HYPERTENSION Qualifiers: Hypertension type: essential hypertension Qualified Code(s): I10 - Essential (primary) hypertension (4) Hyperkalemia Code(s): E87.5 - HYPERKALEMIA (5) Sleep apnea Code(s): G47.30 - SLEEP APNEA, UNSPECIFIED Qualifiers: Sleep apnea type: obstructive Qualified Code(s): G47.33 - Obstructive sleep apnea (adult) (pediatric) (6) Acute on chronic respiratory failure with hypoxia and hypercapnia Code(s): J96.21 - ACUTE AND CHRONIC RESPIRATORY FAILURE WITH HYPOXIA J96.22 - ACUTE AND CHRONIC RESPIRATORY FAILURE WITH HYPERCAPNIA
[2017-02-21] MEDS ORDERED: methylPREDNISolone NA SUCC 40 MG/1 ML VIAL ONE ×2 (18:53→22:38)
--- NOTE | 2017-02-21 18:55 | PN ---
Progress Note, Physician History of Present Illness: Pt seen and examined at bedside. He is more awake and alert yesterday. He feels that his breathing is improved. He denies chest pain or palpitations. - Current Medication List Current Medications: Active Medications Albuterol Sulfate (Ventolin 0.083% Nebulizer Soln -) 1 amp NEB Q1H PRN PRN Reason: SHORT OF BREATH/WHEEZING Albuterol/Ipratropium (Duoneb -) 1 amp NEB Q4H PRN PRN Reason: SHORTNESS OF BREATH Albuterol/Ipratropium (Duoneb -) 1 amp NEB QIDR [facility] Amlodipine Besylate (Norvasc -) 5 mg PO DAILY [facility] Last Admin: 02/21/17 10:18 Dose: 5 mg Aspirin (Asa -) 81 mg PO DAILY [facility] Last Admin: 02/21/17 10:17 Dose: 81 mg Atorvastatin Calcium (Lipitor -) 10 mg PO HS [facility] Last Admin: 02/20/17 23:23 Dose: 10 mg Furosemide (Lasix Injection -) 80 mg IVPB BID [facility] Heparin Sodium (Porcine) (Heparin -) 5,000 unit SQ Q8H-IV [facility] Last Admin: 02/21/17 10:17 Dose: 5,000 unit Hydralazine HCl (Apresoline -) 100 mg PO BID [facility] Last Admin: 02/21/17 10:17 Dose: 100 mg Labetalol HCl (Normodyne -) 600 mg PO BID [facility] Last Admin: 02/21/17 10:18 Dose: 600 mg Methylprednisolone Sodium Succinate (Solu-Medrol -) 40 mg IVPB Q6H-IV [facility] - Objective Vital Signs: Vital Signs Temperature 97.4 F L 02/21/17 08:00 Pulse Rate 68 02/21/17 08:00 Respiratory Rate 20 02/21/17 08:00 Blood Pressure 143/71 02/21/17 08:00 O2 Sat by Pulse Oximetry (%) 97 02/21/17 00:12 Constitutional: Yes: Calm Eyes: Yes: Conjunctiva Clear HENT: Yes: Atraumatic Cardiovascular: Yes: S1, S2 Respiratory: Yes: On Nasal O2 Gastrointestinal: Yes: Soft, Abdomen, Obese Genitourinary: Yes: Reynolds Present Musculoskeletal: Yes: WNL Edema: Yes Edema: LLE: 2+, RLE: 2+ Neurological: Yes: Oriented Psychiatric: Yes: Oriented Labs: CBC, BMP 02/21/17 06:20 02/21/17 16:10 INR, PTT INR 1.08 (0.82-1.09) 02/21/17 06:20 Laboratory Tests 02/21/17 16:10 Sodium 143 Potassium 5.4 H Chloride 110 H Carbon Dioxide 22 Anion Gap 11 BUN 82 H Problem List - Problems (1) CKD (chronic kidney disease) Code(s): N18.9 - CHRONIC KIDNEY DISEASE, UNSPECIFIED (2) HTN (hypertension) Code(s): I10 - ESSENTIAL (PRIMARY) HYPERTENSION (3) CHF (congestive heart failure) Code(s): I50.9 - HEART FAILURE, UNSPECIFIED (4) Hyperkalemia Code(s): E87.5 - HYPERKALEMIA Assessment/Plan Current Medications Generic Name Dose Route Start Last Admin Trade Name Freq PRN Reason Stop Dose Admin Albuterol Sulfate 1 amp 02/21/17 12:26 Ventolin 0.083% Nebulizer Soln - NEB Q1H PRN SHORT OF BREATH/WHEEZING Albuterol/Ipratropium 1 amp 02/21/17 10:09 Duoneb - NEB Q4H PRN SHORTNESS OF BREATH Albuterol/Ipratropium 1 amp 02/22/17 00:00 Duoneb - NEB QIDR [facility] Amlodipine Besylate 5 mg 02/21/17 10:00 02/21/17 10:18 Norvasc - PO 5 mg DAILY [facility] Administration Aspirin 81 mg 02/21/17 10:00 02/21/17 10:17 Asa - PO 81 mg DAILY [facility] Administration Atorvastatin Calcium 10 mg 02/20/17 22:00 02/20/17 23:23 Lipitor - PO 10 mg HS [facility] Administration Furosemide 80 mg 02/21/17 22:00 Lasix Injection - IVPB BID [facility] Heparin Sodium (Porcine) 5,000 unit 02/20/17 18:00 02/21/17 10:17 Heparin - SQ 5,000 unit Q8H-IV [facility] Administration Hydralazine HCl 100 mg 02/20/17 22:00 02/21/17 10:17 Apresoline - PO 100 mg BID [facility] Administration Labetalol HCl 600 mg 02/20/17 22:00 02/21/17 10:18 Normodyne - PO 600 mg BID [facility] Administration Methylprednisolone Sodium Succinate 40 mg 02/21/17 18:15 Solu-Medrol - IVPB Q6H-IV [facility] Impression 1. CKD with unclear baseline 2. CHF 3. HTN 4. obesity 5. hyperlipidemia 6. hyperkalemia Plan - discussed HD with pt at length. He agrees to have permacath placed. - called and discussed care with pts PMD Dr Boyer and pt has had CKD for years with worsening renal function - disucssed diuretics with cardio - called vascular for permacath and fistula - will still need renal workup - will start HD in am - potassium treated medically, repeat stat labs reviewed - admit to monitored unit Dr Mancia
[2017-02-21] MEDS: methylPREDNISolone NA SUCC 40 MG/1 ML VIAL IVPB SCH ×2 (18:56→23:38)
--- NOTE | 2017-02-21 19:18 | CONS ---
DATE OF CONSULTATION: 02/21/2017 PULMONARY CONSULTATION REFERRING PHYSICIAN: Cecilia Damon M.D. HISTORY OF PRESENT ILLNESS: The patient is a 57-year-old black male with past medical history of hypertension, CHF, chronic kidney disease, questionable COPD, obstructive sleep apnea on CPAP at home, hyperlipidemia, admitted to [facility] with complaint of increasing shortness of breath and bronchospasm. Patient states he has been having increasing shortness of breath on minimal exertion. Denies any chest pain or palpitation. Denies any nausea, vomiting, or diaphoreses. He states that he recently had URI symptoms. Denies any fevers or chills. Denies any hemoptysis. He states recently he started developing severe exercise intolerance, failure to walk less than a block without developing shortness of breath. He also has 2-3 pillow orthopnea. Also complains of occasional intermittent chest pains. On admission, patient denies any history of tobacco use. There is no apparent history of occupational exposure to chemicals or fumes. The patient is felt to have possible known CHF. He is on Lasix. We also gave him inhaled bronchodilators. He underwent an echo earlier which revealed enlarged LV but normal function. No evidence of RV dysfunction. No evidence of pulmonary hypertension. PAST MEDICAL HISTORY: Again includes questionable CHF, chronic venous stasis, chronic kidney disease, hypertension, obstructive sleep apnea, questionable COPD. MEDICATION: Prior to admission include Norvasc, aspirin, Vasotec, Lasix, hydralazine, and Normodyne. Current medications include Lasix, aspirin, Lipitor, Apresoline, Normodyne, DuoNeb, Solu-Medrol. REVIEW OF SYSTEMS: Unable to obtain. Patient is falling asleep during exam. PHYSICAL EXAMINATION: General: The patient is an obese male, well-developed, well-nourished drowsy, going to sleep during questioning. Vital signs: Blood pressure 143/71, respiratory rate 20, O2 saturation is 97% on 2 L, temperature is 97.4. HEENT: Head is normocephalic, atraumatic. Neck: Supple. Heart: Regular. S1, S2. Chest: Scattered bilateral wheezes throughout. Abdomen: Soft. Bowel sounds positive. Extremities: 4+ edema bilaterally. LABORATORY: Blood gas: pH of 7.21, pCO2 of 54, pO2 of 59, and bicarbonate of 21 with saturation of 86.6, this is on 2 L. WBC is 5.7, hemoglobin 8.8, hematocrit 28.5, platelet count 158,000. Potassium 5.4, BUN 82, creatinine 7.6. Chest x- ray reveals cardiomegaly with no infiltrates, no effusions, no congestion. IMPRESSION: [id number] hypoxemia and hypercapnic respiratory failure, etiology undetermined. 1. Chronic obstructive pulmonary disease. 2. decompensated congestive heart failure. 3. Obstructive sleep apnea syndrome. 4. Iiozk-ka-rpyswvs renal failure. 5. Hypertension. PLAN: BiPAP. Lasix. Inhaled bronchodilators. A short course of steroids x24 to 48 hours. Obtain followup arterial blood gases. Daily weights. Strict I's and O' s. KELLEY BLUM M.D. [id number] MTDD
[2017-02-21] MEDS ORDERED: LABETALOL HCL 100 MG TABLET (FP) ONE ×2 (22:38→22:49)
[2017-02-21] MEDS ORDERED: FUROSEMIDE 40 MG/4 ML INJECTABLE VIAL ONE ×2 (22:39→22:56)
[2017-02-21] MEDS ORDERED: hydrALAZINE HCL 25 MG TABLET (FP) ONE (22:55)
[2017-02-21] MEDS: ATORVASTATIN CA 10 MG TABLET (FP) PO SCH (23:29)
[2017-02-22] MEDS: ALBUTEROL SO4 2.5/IPRATROPIUM 0.5 INH SOL 3 ML VIAL.NEB. NEB SCH ×5 (01:05→23:51)
[2017-02-22 01:24] LABS: CALCIUM 8.4 mg/dL (8.5-10.1)
[2017-02-22 01:29] LABS: COCKROFT - GAULT 21.3
[2017-02-22 01:32] LABS: CREATININE 7.8 mg/dL (0.7-1.3)
[2017-02-22] MEDS: HEPARIN NA (PORCINE) 5,000 UNITS/ML 1ML VIAL SQ SCH ×4 (02:00→21:35)
[2017-02-22] MEDS: methylPREDNISolone NA SUCC 40 MG/1 ML VIAL IVPB SCH ×4 (03:18→21:35)
[2017-02-22 03:50] VITALS: BMI 36.3
[2017-02-22] MEDS ORDERED: PNEUMOC 13-VAL CONJ-DIP CRM/PF 0.5 ML DISP.SYRIN IM ONE (03:50)
[2017-02-22 06:06] LABS: HEP B SURFACE AB Non Reactive (.)
[2017-02-22 08:32] LABS: CALCIUM 8.1 mg/dL (8.5-10.1); COCKROFT - GAULT 16.47
[2017-02-22 08:46] LABS: CREATININE 7.9 mg/dL (0.7-1.3)
[2017-02-22] MEDS: hydrALAZINE HCL 50 MG TABLET (FP) PO SCH ×2 (09:21→21:36)
[2017-02-22] MEDS: amLODIPine BESYLATE 5 MG TABLET (FP) PO SCH (09:21)
[2017-02-22] MEDS: LABETALOL HCL 200 MG TABLET (FP) PO SCH ×2 (09:21→21:36)
[2017-02-22] MEDS: FUROSEMIDE 100 MG/10 ML INJECTABLE VIAL IVPB SCH ×2 (09:22→21:35)
[2017-02-22] MEDS: ASPIRIN 81 MG CHEWABLE TABLETS PO SCH (09:32)
--- NOTE | 2017-02-22 10:28 | PN ---
Progress Note, Physician Chief Complaint: No distress more awake used BIPAP - Current Medication List Current Medications: Active Medications Albuterol Sulfate (Ventolin 0.083% Nebulizer Soln -) 1 amp NEB Q1H PRN PRN Reason: SHORT OF BREATH/WHEEZING Albuterol/Ipratropium (Duoneb -) 1 amp NEB Q4H PRN PRN Reason: SHORTNESS OF BREATH Last Admin: 02/21/17 18:32 Dose: 1 amp Albuterol/Ipratropium (Duoneb -) 1 amp NEB QIDR [facility] Last Admin: 02/22/17 06:48 Dose: 1 amp Amlodipine Besylate (Norvasc -) 5 mg PO DAILY [facility] Last Admin: 02/22/17 09:21 Dose: 5 mg Aspirin (Asa -) 81 mg PO DAILY [facility] Last Admin: 02/22/17 09:32 Dose: Not Given Atorvastatin Calcium (Lipitor -) 10 mg PO HS [facility] Last Admin: 02/21/17 23:29 Dose: 10 mg Furosemide (Lasix Injection -) 80 mg IVPB BID [facility] Last Admin: 02/22/17 09:22 Dose: 80 mg Heparin Sodium (Porcine) (Heparin -) 5,000 unit SQ Q8H-IV [facility] Last Admin: 02/22/17 09:33 Dose: Not Given Hydralazine HCl (Apresoline -) 100 mg PO BID [facility] Last Admin: 02/22/17 09:21 Dose: 100 mg Labetalol HCl (Normodyne -) 600 mg PO BID [facility] Last Admin: 02/22/17 09:21 Dose: 600 mg Methylprednisolone Sodium Succinate (Solu-Medrol -) 40 mg IVPB Q6H-IV [facility] Last Admin: 02/22/17 09:19 Dose: 40 mg Pneumococcal Polyvalent Vaccine (Pneumovax -) 0.5 ml IM .ONCE ONE Stop: 02/22/17 11:01 - Objective Vital Signs: Vital Signs Temperature 99.4 F 02/22/17 05:49 Pulse Rate 94 H 02/22/17 05:49 Respiratory Rate 24 02/22/17 05:49 Blood Pressure 127/74 02/22/17 05:49 O2 Sat by Pulse Oximetry (%) 98 02/22/17 02:00 Constitutional: Yes: No Distress Cardiovascular: Yes: Regular Rate and Rhythm Respiratory: Yes: Diminished Gastrointestinal: Yes: Normal Bowel Sounds, Soft, Abdomen, Obese. No: Tenderness Edema: Yes Labs: CBC, BMP 02/21/17 06:20 02/22/17 06:20 INR, PTT INR 1.08 (0.82-1.09) 02/21/17 06:20 Problem List - Problems (1) Acute on chronic respiratory failure with hypoxia and hypercapnia Assessment/Plan: ABG noted Pulmonary eval appreciated on short course solumedrol on BIPAP nebs as needed Code(s): J96.21 - ACUTE AND CHRONIC RESPIRATORY FAILURE WITH HYPOXIA J96.22 - ACUTE AND CHRONIC RESPIRATORY FAILURE WITH HYPERCAPNIA (2) CHF (congestive heart failure) Assessment/Plan: Echo noted renal function worsening on iv Laix Pt has agreed for dialysis Code(s): I50.9 - HEART FAILURE, UNSPECIFIED Qualifiers: Congestive heart failure type: diastolic Congestive heart failure chronicity: acute on chronic Qualified Code(s): I50.33 - Acute on chronic diastolic (congestive) heart failure (3) CKD (chronic kidney disease) Code(s): N18.9 - CHRONIC KIDNEY DISEASE, UNSPECIFIED (4) HTN (hypertension) Assessment/Plan: on meds monitor BP Code(s): I10 - ESSENTIAL (PRIMARY) HYPERTENSION Qualifiers: Hypertension type: essential hypertension Qualified Code(s): I10 - Essential (primary) hypertension (5) Hyperkalemia Code(s): E87.5 - HYPERKALEMIA (6) Sleep apnea Assessment/Plan: on BIPAP Code(s): G47.30 - SLEEP APNEA, UNSPECIFIED Qualifiers: Sleep apnea type: obstructive Qualified Code(s): G47.33 - Obstructive sleep apnea (adult) (pediatric) (7) Acute on chronic renal failure Assessment/Plan: Worsening renal function pt does not have much urine out put Potassium elevated Spoke with Renal Pt agreed for dialysis Pt is medically cleared for permacath placement today He will get dialysed afterwards DVT prophylaxis-- Heparin sc Code(s): N17.9 - ACUTE KIDNEY FAILURE, UNSPECIFIED N18.9 - CHRONIC KIDNEY DISEASE, UNSPECIFIED
[2017-02-22] MEDS ORDERED: PNEUMOCOCCAL 23 VACCINE 0.5 ML VIAL IM ONE (11:00)
[2017-02-22] MEDS ORDERED: HEPARIN NA (PORCINE) 5,000 UNITS/ML 1ML VIAL ONE (11:28)
[2017-02-22] MEDS ORDERED: LIDOCAINE HCL 1%, 10 MG/ML (20ML VIAL) ONE (11:29)
[2017-02-22] MEDS ORDERED: MIDAZOLAM HCL 2 MG/2 ML SINGLE DOSE VIAL ONE (11:37)
[2017-02-22] MEDS ORDERED: ceFAZolin SODIUM 1 GM VIAL ONE (11:37)
--- NOTE | 2017-02-22 11:50 | PN ---
Progress Note (short form) - Note Progress Note: Vascular Surgery Pt seen and examined. Will place PC today and then pt can get HD Vein mapping ordered. Please save left arm. Can do avf on monday prior to DC. Maikol Hernandez DO
[2017-02-22] MEDS ORDERED: ceFAZolin SODIUM 1 GM VIAL IVPB ONE (11:54)
[2017-02-22] MEDS ORDERED: LIDOCAINE HCL 1%, 10 MG/ML (20ML VIAL) IJ ONE (12:07)
[2017-02-22] MEDS ORDERED: HEPARIN NA (PORCINE) 5,000 UNITS/ML 1ML VIAL SQ ONE (12:10)
[2017-02-22] MEDS ORDERED: ADENOSINE 6 MG/2 ML VIAL IVPUSH ONE (12:16)
--- NOTE | 2017-02-22 12:26 | OP ---
Operative Note - Note: Operative Date: 02/22/17 Pre-Operative Diagnosis: ARF Operation: Insertion of permacath Post-Operative Diagnosis: Same as Pre-op Surgeon: Maikol Hernandez Anesthesia: Fractional Estimated Blood Loss (mls): 20 Operative Report Dictated: Yes
[2017-02-22] MEDS ORDERED: ACETAMINOPHEN 325 MG TABLET (FP) PO PRN (12:37)
[2017-02-22] MEDS ORDERED: ONDANSETRON 4 MG/2 ML VIAL IVPUSH PRN (12:37)
[2017-02-22] MEDS ORDERED: SODIUM CHLORIDE 1,000 ML IV SCH (12:45)
[2017-02-22] MEDS ORDERED: ALBUTEROL SO4 0.083% IH SOL 2.5 MG/3 ML VIAL.NEB. NEB PRN (12:55)
[2017-02-22] MEDS ORDERED: ALBUTEROL SO4 2.5/IPRATROPIUM 0.5 INH SOL 3 ML VIAL.NEB. NEB PRN (12:55)
--- NOTE | 2017-02-22 12:55 | PN ---
Progress Note, Physician History of Present Illness: Pt seen and examined at bedside. He is awake and alert. He denies shortness of breath. He feels better today. - Current Medication List Current Medications: Active Medications Acetaminophen (Tylenol -) 650 mg PO Q4H PRN PRN Reason: PAIN Stop: 02/22/17 16:38 Albuterol Sulfate (Ventolin 0.083% Nebulizer Soln -) 1 amp NEB Q1H PRN PRN Reason: SHORT OF BREATH/WHEEZING Albuterol/Ipratropium (Duoneb -) 1 amp NEB Q4H PRN PRN Reason: SHORTNESS OF BREATH Last Admin: 02/21/17 18:32 Dose: 1 amp Albuterol/Ipratropium (Duoneb -) 1 amp NEB QIDR [facility] Last Admin: 02/22/17 11:51 Dose: Not Given Amlodipine Besylate (Norvasc -) 5 mg PO DAILY [facility] Last Admin: 02/22/17 09:21 Dose: 5 mg Aspirin (Asa -) 81 mg PO DAILY [facility] Last Admin: 02/22/17 09:32 Dose: Not Given Atorvastatin Calcium (Lipitor -) 10 mg PO HS [facility] Last Admin: 02/21/17 23:29 Dose: 10 mg Furosemide (Lasix Injection -) 80 mg IVPB BID [facility] Last Admin: 02/22/17 09:22 Dose: 80 mg Heparin Sodium (Porcine) (Heparin -) 5,000 unit SQ Q8H-IV [facility] Last Admin: 02/22/17 09:33 Dose: Not Given Hydralazine HCl (Apresoline -) 100 mg PO BID [facility] Last Admin: 02/22/17 09:21 Dose: 100 mg Sodium Chloride (Normal Saline -) 1,000 mls @ 42 mls/hr IV ASDIR [facility] Labetalol HCl (Normodyne -) 600 mg PO BID [facility] Last Admin: 02/22/17 09:21 Dose: 600 mg Methylprednisolone Sodium Succinate (Solu-Medrol -) 40 mg IVPB Q6H-IV [facility] Last Admin: 02/22/17 09:19 Dose: 40 mg Ondansetron HCl (Zofran Injection) 4 mg IVPUSH Q6H PRN PRN Reason: NAUSEA AND/OR VOMITING Stop: 02/22/17 18:38 - Objective Vital Signs: Vital Signs Temperature 98.7 F 02/22/17 10:00 Pulse Rate 94 H 02/22/17 10:00 Respiratory Rate 24 02/22/17 10:00 Blood Pressure 182/94 02/22/17 10:00 O2 Sat by Pulse Oximetry (%) 98 02/22/17 10:00 Constitutional: Yes: Calm Eyes: Yes: Conjunctiva Clear HENT: Yes: Atraumatic Neck: Yes: Supple Cardiovascular: Yes: S1, S2 Respiratory: Yes: Rhonchi Gastrointestinal: Yes: Soft, Abdomen, Obese Genitourinary: Yes: Reynolds Present Musculoskeletal: Yes: WNL Edema: Yes Neurological: Yes: Oriented Psychiatric: Yes: Oriented Labs: CBC, BMP 02/21/17 06:20 02/22/17 06:20 INR, PTT INR 1.08 (0.82-1.09) 02/21/17 06:20 Problem List - Problems (1) CKD (chronic kidney disease) Code(s): N18.9 - CHRONIC KIDNEY DISEASE, UNSPECIFIED (2) HTN (hypertension) Code(s): I10 - ESSENTIAL (PRIMARY) HYPERTENSION Qualifiers: Hypertension type: essential hypertension Qualified Code(s): I10 - Essential (primary) hypertension (3) CHF (congestive heart failure) Code(s): I50.9 - HEART FAILURE, UNSPECIFIED Qualifiers: Congestive heart failure type: diastolic Congestive heart failure chronicity: acute on chronic Qualified Code(s): I50.33 - Acute on chronic diastolic (congestive) heart failure (4) Hyperkalemia Code(s): E87.5 - HYPERKALEMIA Assessment/Plan Current Medications Generic Name Dose Route Start Last Admin Trade Name Freq PRN Reason Stop Dose Admin Acetaminophen 650 mg 02/22/17 12:37 Tylenol - PO 02/22/17 16:38 Q4H PRN PAIN Albuterol Sulfate 1 amp 02/21/17 12:26 Ventolin 0.083% Nebulizer Soln - NEB Q1H PRN SHORT OF BREATH/WHEEZING Albuterol/Ipratropium 1 amp 02/21/17 10:09 02/21/17 18:32 Duoneb - NEB 1 amp Q4H PRN Administration SHORTNESS OF BREATH Albuterol/Ipratropium 1 amp 02/22/17 00:00 02/22/17 11:51 Duoneb - NEB Not Given QIDR [facility] Amlodipine Besylate 5 mg 02/21/17 10:00 02/22/17 09:21 Norvasc - PO 5 mg DAILY [facility] Administration Aspirin 81 mg 02/21/17 10:00 02/22/17 09:32 Asa - PO Not Given DAILY [facility] Atorvastatin Calcium 10 mg 02/20/17 22:00 02/21/17 23:29 Lipitor - PO 10 mg HS [facility] Administration Furosemide 80 mg 02/21/17 22:00 02/22/17 09:22 Lasix Injection - IVPB 80 mg BID [facility] Administration Heparin Sodium (Porcine) 5,000 unit 02/20/17 18:00 02/22/17 09:33 Heparin - SQ Not Given Q8H-IV [facility] Hydralazine HCl 100 mg 02/20/17 22:00 02/22/17 09:21 Apresoline - PO 100 mg BID [facility] Administration Sodium Chloride 1,000 mls @ 42 mls/hr 02/22/17 12:45 Normal Saline - IV ASDIR [facility] Labetalol HCl 600 mg 02/20/17 22:00 02/22/17 09:21 Normodyne - PO 600 mg BID [facility] Administration Methylprednisolone Sodium Succinate 40 mg 02/21/17 18:15 02/22/17 09:19 Solu-Medrol - IVPB 40 mg Q6H-IV [facility] Administration Ondansetron HCl 4 mg 02/22/17 12:37 Zofran Injection IVPUSH 02/22/17 18:38 Q6H PRN NAUSEA AND/OR VOMITING Impression 1. CKD 2. CHF 3. HTN 4. obesity 5. hyperlipidemia 6. hyperkalemia Plan - pt is going for a permacath today - will arrange for HD today - discussed access with vascular surgery, pt will also get an AV fistula on this admission - pt would like to go to [facility] HD on [facility] - can stop PO bicarb - will follow - discussed with medical attending Dr Mancia
--- NOTE | 2017-02-22 14:55 | OP ---
DATE OF OPERATION: 02/22/2017 PREOPERATIVE DIAGNOSIS: Acute renal failure. POSTOPERATIVE DIAGNOSIS: Acute renal failure. PROCEDURE: Insertion of PermCath. SURGEON: Maikol Olivo MD ESTIMATED BLOOD LOSS: Approximately 20 mL. INDICATIONS: The patient is a 57-year-old male who comes into ER with acute renal failure. It was decided that he would need a temporary dialysis catheter placement. The patient was consented for the procedure understanding all risks, benefits and alteratives. PROCEDURE IN DETAIL: Once in the operating room, the patient was placed on the operating table in supine position. The right neck and chest were prepped and draped in a sterile surgical manner. Under ultrasound visualization we visualized the right internal jugular vein and 10 mL of 1% lidocaine was injected there. We then took our micropuncture needle and punched the right internal jugular vein under ultrasound guidance and micropuncture wire was inserted. A micropuncture sheath was inserted and 0.035 guidewire was inserted. We then injected 10 mL of lidocaine 1% above and below the clavicle. We then used an 11 blade and a 1-cm incision was made at the puncture site. Using a 15 blade a 1-cm incision was made below the clavicle. We then tunneled the PermCath up to the puncture site. We then placed the catheter over the guidewire under ultrasound guided fluoroscopy. We then went ahead and placed a breakaway sheath over the guidewire into the vein under fluoroscopy and the and guidewire were removed. The catheter was released around the sheath and the sheath was broken away and the catheter remained inside the vein. Neck of the catheter was tip and the catheter was located inside the right atrium. We then shannan back on each part of the catheter and heparin was injected. We then shannan back on each port of the catheter and there was good flow. Heparinize saline was injected and 2000 units of IV heparin were injected into each port. 4-0 Biosyn was then used in 2 separate sutures to approximate the puncture site, 2-0 nylon used to secure the catheter to the skin. Area was wet and dried, Steri-Strips, 4 x 4, Tegaderm were placed. The patient tolerated the procedure well with no complications. The patient was transferred to the PACU in stable condition where chest x-ray will be obtained. MAIKOL OLIVO DO [id number]
--- NOTE | 2017-02-22 15:33 | PN ---
Progress Note, Physician History of Present Illness: PULMONARY ALERT,NAD,ON HEMODIALYSIS,-RESP DISTRESS,SLEPT WELL ON BIPAP - Current Medication List Current Medications: Active Medications Acetaminophen (Tylenol -) 650 mg PO Q4H PRN PRN Reason: PAIN Stop: 02/22/17 16:38 Albuterol Sulfate (Ventolin 0.083% Nebulizer Soln -) 1 amp NEB Q1H PRN PRN Reason: SHORT OF BREATH/WHEEZING Albuterol/Ipratropium (Duoneb -) 1 amp NEB Q4H PRN PRN Reason: SHORTNESS OF BREATH Albuterol/Ipratropium (Duoneb -) 1 amp NEB QIDR [facility] Amlodipine Besylate (Norvasc -) 5 mg PO DAILY [facility] Aspirin (Asa -) 81 mg PO DAILY [facility] Atorvastatin Calcium (Lipitor -) 10 mg PO HS [facility] Furosemide (Lasix Injection -) 80 mg IVPB BID [facility] Heparin Sodium (Porcine) (Heparin -) 5,000 unit SQ TID [facility] Last Admin: 02/22/17 14:32 Dose: 5,000 unit Hydralazine HCl (Apresoline -) 100 mg PO BID [facility] Sodium Chloride (Normal Saline -) 1,000 mls @ 42 mls/hr IV ASDIR [facility] Last Admin: 02/22/17 14:20 Dose: Not Given Labetalol HCl (Normodyne -) 600 mg PO BID [facility] Methylprednisolone Sodium Succinate (Solu-Medrol -) 40 mg IVPB Q6H-IV [facility] Last Admin: 02/22/17 14:32 Dose: 40 mg Ondansetron HCl (Zofran Injection) 4 mg IVPUSH Q6H PRN PRN Reason: NAUSEA AND/OR VOMITING Stop: 02/22/17 18:38 - Objective Vital Signs: Vital Signs Temperature 97.8 F 02/22/17 14:35 Pulse Rate 84 02/22/17 14:35 Respiratory Rate 20 02/22/17 14:35 Blood Pressure 173/97 02/22/17 14:35 O2 Sat by Pulse Oximetry (%) 96 02/22/17 14:57 Constitutional: Yes: Well Nourished, Calm Eyes: Yes: WNL HENT: Yes: WNL Neck: Yes: WNL Cardiovascular: Yes: Regular Rate and Rhythm, S1, S2 Respiratory: Yes: Wheezes (SCATTERED JEB WHEEZES) Gastrointestinal: Yes: Normal Bowel Sounds, Soft Extremities: Yes: WNL Edema: Yes Labs: CBC, BMP 02/21/17 06:20 02/22/17 06:20 INR, PTT INR 1.08 (0.82-1.09) 02/21/17 06:20 Problem List - Problems (1) CHF (congestive heart failure) Code(s): I50.9 - HEART FAILURE, UNSPECIFIED Qualifiers: Congestive heart failure type: diastolic Congestive heart failure chronicity: acute on chronic Qualified Code(s): I50.33 - Acute on chronic diastolic (congestive) heart failure (2) CKD (chronic kidney disease) Code(s): N18.9 - CHRONIC KIDNEY DISEASE, UNSPECIFIED (3) HTN (hypertension) Code(s): I10 - ESSENTIAL (PRIMARY) HYPERTENSION Qualifiers: Hypertension type: essential hypertension Qualified Code(s): I10 - Essential (primary) hypertension (4) Hyperkalemia Code(s): E87.5 - HYPERKALEMIA (5) Sleep apnea Code(s): G47.30 - SLEEP APNEA, UNSPECIFIED Qualifiers: Sleep apnea type: obstructive Qualified Code(s): G47.33 - Obstructive sleep apnea (adult) (pediatric) (6) Acute on chronic respiratory failure with hypoxia and hypercapnia Code(s): J96.21 - ACUTE AND CHRONIC RESPIRATORY FAILURE WITH HYPOXIA J96.22 - ACUTE AND CHRONIC RESPIRATORY FAILURE WITH HYPERCAPNIA Assessment/Plan IMP ACUTE HYPOXEMIC/HYPERCAPNEIC RESPIRATORY FAILURE COPD CHF CHRONIC RENAL FAILURE HTN OSAS PLAN BIPAP LASIX INHALED BRONCHODILATORS O2 CONTINUE STEROIDS X 24 HRS F/U ABG DAILY WTS MONITOR LYTES HD PER RENAL STRICT I+OS F/U CHEST X-RAY DR BLUM Problem List - Problems (1) CHF (congestive heart failure) Code(s): I50.9 - HEART FAILURE, UNSPECIFIED Qualifiers: Congestive heart failure type: diastolic Congestive heart failure chronicity: acute on chronic Qualified Code(s): I50.33 - Acute on chronic diastolic (congestive) heart failure (2) CKD (chronic kidney disease) Code(s): N18.9 - CHRONIC KIDNEY DISEASE, UNSPECIFIED (3) HTN (hypertension) Code(s): I10 - ESSENTIAL (PRIMARY) HYPERTENSION Qualifiers: Hypertension type: essential hypertension Qualified Code(s): I10 - Essential (primary) hypertension (4) Hyperkalemia Code(s): E87.5 - HYPERKALEMIA (5) Sleep apnea Code(s): G47.30 - SLEEP APNEA, UNSPECIFIED Qualifiers: Sleep apnea type: obstructive Qualified Code(s): G47.33 - Obstructive sleep apnea (adult) (pediatric) (6) Acute on chronic respiratory failure with hypoxia and hypercapnia Code(s): J96.21 - ACUTE AND CHRONIC RESPIRATORY FAILURE WITH HYPOXIA J96.22 - ACUTE AND CHRONIC RESPIRATORY FAILURE WITH HYPERCAPNIA
[2017-02-22] MEDS ORDERED: LABETALOL HCL 200 MG TABLET (FP) ONE (16:00)
[2017-02-22] MEDS ORDERED: hydrALAZINE HCL 50 MG TABLET (FP) PO ONE (16:15)
[2017-02-22] MEDS ORDERED: LABETALOL HCL 200 MG TABLET (FP) PO ONE (16:15)
[2017-02-22] MEDS ORDERED: hydrALAZINE HCL 20 MG/ML VIAL IVPUSH ONE ×2 (16:43→17:00)
[2017-02-22] MEDS ORDERED: hydrALAZINE HCL 20 MG/ML VIAL ONE (16:45)
[2017-02-22 17:41] LABS: ARTERIAL BLD GAS O2 SATURATION 96.9 % (90-98.9); ARTERIAL BLOOD GAS BASE EXCESS 0.5 meq/l (-2-2); ARTERIAL BLOOD GAS PO2 88.3 mmHg (80-100)
[2017-02-22 17:42] LABS: ALLENS TEST POSITIVE; ART PUNCT SITE RIGHT RADIAL; LPM/O2% 3LPM; PT. ON O2? YES; TYPE OF O2 NASAL
[2017-02-22 17:43] LABS: ARTERIAL BLOOD GAS pH 7.34 (7.35-7.45)
[2017-02-22 18:29] LABS: CALCIUM 7.7 mg/dL (8.5-10.1); COCKROFT - GAULT 26.03
[2017-02-22] MEDS: ATORVASTATIN CA 10 MG TABLET (FP) PO SCH (21:37)
[2017-02-23] MEDS: methylPREDNISolone NA SUCC 40 MG/1 ML VIAL IVPB SCH ×2 (01:59→10:02)
[2017-02-23] MEDS: HEPARIN NA (PORCINE) 5,000 UNITS/ML 1ML VIAL SQ SCH ×3 (05:00→23:15)
[2017-02-23] MEDS: ALBUTEROL SO4 2.5/IPRATROPIUM 0.5 INH SOL 3 ML VIAL.NEB. NEB SCH ×4 (06:35→23:45)
[2017-02-23 08:12] LABS: CALCIUM 8.2 mg/dL (8.5-10.1)
[2017-02-23 08:13] LABS: COCKROFT - GAULT 24.47; CREATININE 6.4 mg/dL (0.7-1.3)
--- NOTE | 2017-02-23 09:56 | PN ---
Progress Note, Physician Chief Complaint: had HD yesterday S/p permacath placement vein mapping done feels well no SOB - Current Medication List Current Medications: Active Medications Albuterol Sulfate (Ventolin 0.083% Nebulizer Soln -) 1 amp NEB Q1H PRN PRN Reason: SHORT OF BREATH/WHEEZING Albuterol/Ipratropium (Duoneb -) 1 amp NEB Q4H PRN PRN Reason: SHORTNESS OF BREATH Albuterol/Ipratropium (Duoneb -) 1 amp NEB QIDR [facility] Last Admin: 02/23/17 06:35 Dose: 1 amp Amlodipine Besylate (Norvasc -) 5 mg PO DAILY [facility] Aspirin (Asa -) 81 mg PO DAILY [facility] Atorvastatin Calcium (Lipitor -) 10 mg PO HS [facility] Last Admin: 02/22/17 21:37 Dose: 10 mg Furosemide (Lasix Injection -) 80 mg IVPB BID [facility] Last Admin: 02/22/17 21:35 Dose: 80 mg Heparin Sodium (Porcine) (Heparin -) 5,000 unit SQ TID [facility] Last Admin: 02/23/17 05:00 Dose: 5,000 unit Hydralazine HCl (Apresoline -) 100 mg PO BID [facility] Last Admin: 02/22/17 21:36 Dose: 100 mg Sodium Chloride (Normal Saline -) 1,000 mls @ 42 mls/hr IV ASDIR [facility] Last Admin: 02/22/17 14:20 Dose: Not Given Labetalol HCl (Normodyne -) 600 mg PO BID [facility] Last Admin: 02/22/17 21:36 Dose: 600 mg Methylprednisolone Sodium Succinate (Solu-Medrol -) 40 mg IVPB Q6H-IV [facility] Last Admin: 02/23/17 01:59 Dose: 40 mg - Objective Vital Signs: Vital Signs Temperature 98.0 F 02/23/17 06:00 Pulse Rate 81 02/23/17 06:00 Respiratory Rate 20 02/23/17 06:00 Blood Pressure 156/89 02/23/17 06:00 O2 Sat by Pulse Oximetry (%) 96 02/22/17 21:00 Constitutional: Yes: No Distress Cardiovascular: Yes: Regular Rate and Rhythm Respiratory: Yes: Diminished Gastrointestinal: Yes: Normal Bowel Sounds, Soft, Abdomen, Obese. No: Distention, Tenderness Edema: Yes Edema: LLE: 1+, RLE: 1+ Labs: CBC, BMP 02/21/17 06:20 02/23/17 06:30 INR, PTT INR 1.08 (0.82-1.09) 02/21/17 06:20 Problem List - Problems (1) Acute on chronic respiratory failure with hypoxia and hypercapnia Code(s): J96.21 - ACUTE AND CHRONIC RESPIRATORY FAILURE WITH HYPOXIA J96.22 - ACUTE AND CHRONIC RESPIRATORY FAILURE WITH HYPERCAPNIA (2) CHF (congestive heart failure) Code(s): I50.9 - HEART FAILURE, UNSPECIFIED Qualifiers: Congestive heart failure type: diastolic Congestive heart failure chronicity: acute on chronic Qualified Code(s): I50.33 - Acute on chronic diastolic (congestive) heart failure (3) CKD (chronic kidney disease) Code(s): N18.9 - CHRONIC KIDNEY DISEASE, UNSPECIFIED (4) HTN (hypertension) Code(s): I10 - ESSENTIAL (PRIMARY) HYPERTENSION Qualifiers: Hypertension type: essential hypertension Qualified Code(s): I10 - Essential (primary) hypertension (5) Hyperkalemia Code(s): E87.5 - HYPERKALEMIA (6) Sleep apnea Code(s): G47.30 - SLEEP APNEA, UNSPECIFIED Qualifiers: Sleep apnea type: obstructive Qualified Code(s): G47.33 - Obstructive sleep apnea (adult) (pediatric) (7) Acute on chronic renal failure Code(s): N17.9 - ACUTE KIDNEY FAILURE, UNSPECIFIED N18.9 - CHRONIC KIDNEY DISEASE, UNSPECIFIED Assessment/Plan PLAN for AVF placement HD today per Renal Continue with BIPAP ON IV Lasix-- pt is urinating FELIZ joel today continue with meds complete Solumedrol 24 hours-- one more dose at 3 pm today nebs as needed monitor BP
[2017-02-23] MEDS: ASPIRIN 81 MG CHEWABLE TABLETS PO SCH (10:03)
[2017-02-23] MEDS: FUROSEMIDE 100 MG/10 ML INJECTABLE VIAL IVPB SCH (10:03)
[2017-02-23] MEDS: amLODIPine BESYLATE 5 MG TABLET (FP) PO SCH (10:03)
[2017-02-23] MEDS: LABETALOL HCL 200 MG TABLET (FP) PO SCH ×2 (10:03→23:14)
--- NOTE | 2017-02-23 10:36 | PN ---
Progress Note (short form) - Note Progress Note: S: feeling well, tolerated HD, no cp sob palps dizzy o: Vital Signs Period Temp Pulse Resp BP Sys/Iraheta Pulse Ox Last 24 Hr 97.8 F-99.3 F 77-110 18-24 147-225/75-116 96-98 Nad, no jvd rrr nl s1, s2 2/6 sys murmur at apex cta bl nl eff no le e/c/c no jaundice, diaphoresis Current Medications Generic Name Dose Route Start Last Admin Trade Name Freq PRN Reason Stop Dose Admin Albuterol Sulfate 1 amp 02/22/17 12:55 Ventolin 0.083% Nebulizer Soln - NEB Q1H PRN SHORT OF BREATH/WHEEZING Albuterol/Ipratropium 1 amp 02/22/17 12:55 Duoneb - NEB Q4H PRN SHORTNESS OF BREATH Albuterol/Ipratropium 1 amp 02/22/17 18:00 02/23/17 06:35 Duoneb - NEB 1 amp QIDR [facility] Administration Amlodipine Besylate 5 mg 02/23/17 10:00 02/23/17 10:03 Norvasc - PO 5 mg DAILY [facility] Administration Aspirin 81 mg 02/23/17 10:00 02/23/17 10:03 Asa - PO 81 mg DAILY [facility] Administration Atorvastatin Calcium 10 mg 02/22/17 22:00 02/22/17 21:37 Lipitor - PO 10 mg HS [facility] Administration Furosemide 80 mg 02/22/17 22:00 02/23/17 10:03 Lasix Injection - IVPB 80 mg BID [facility] Administration Heparin Sodium (Porcine) 5,000 unit 02/22/17 14:00 02/23/17 05:00 Heparin - SQ 5,000 unit TID [facility] Administration Hydralazine HCl 100 mg 02/22/17 22:00 02/22/17 21:36 Apresoline - PO 100 mg BID [facility] Administration Sodium Chloride 1,000 mls @ 42 mls/hr 02/22/17 12:45 02/22/17 14:20 Normal Saline - IV Not Given ASDIR [facility] Labetalol HCl 600 mg 02/22/17 22:00 02/23/17 10:03 Normodyne - PO 600 mg BID [facility] Administration Methylprednisolone Sodium Succinate 40 mg 02/22/17 15:00 02/23/17 10:02 Solu-Medrol - IVPB 40 mg Q6H-IV [facility] Administration CBC, BMP 02/21/17 06:20 02/23/17 06:30 tele: sr, pvcs, brief atrial run echo 02/2017: nl lvef, mod lve, mild rve, nl rv fcn, mild lae, mild-mod tr Echo 07/2014: normal LV/RV function, mod concentric LVH, no sig valv abn Echo 03/2013: normal LV/RV function, mild to mod concentric LVH, no sig valv abn Stress MPI 03/2013: moderate anny-lateral scar and infero-lateral ischemia. enlarged LV a/p: 57 yo HTN, HPL,morbid obesity, CAD (ab stress - tx medically due to high risk for ATN) severe BUTCH, ESRD who presents with sob. sob, acute diastolic and possibly right heart failure exacerbation - may be exacerbated by volume overload from ESRD. - after lasix and now HD, starting to have less vol overload - cont lasix and HD per renal hyperkalemia -improved, now on HD CAD - trop negative. ekg without acute ischemic changes - cont asa, statin bb, htn - cont current meds, monitor for fluctuations now that on HD butch - bipap esrd -now on HD
--- NOTE | 2017-02-23 12:57 | SPA.PREOP ---
- PRE-OP NOTE Dx: ESRD Planned Procedure: AV fistula, possible PTFE graft Surgeon: Maikol Hernandez Consent: To be obtained by surgeon after risks, benefits and alternatives explained to patient. Last Vital Signs Temp Pulse Resp BP Pulse Ox 99.4 F 83 20 190/60 97 02/23/17 09:00 02/23/17 12:11 02/23/17 09:00 02/23/17 09:00 02/23/17 12:11 Lab Results WBC 5.7 K/mm3 (4.0-10.0) 02/21/17 06:20 RBC 3.37 M/mm3 (4.00-5.60) L 02/21/17 06:20 Hgb 8.8 GM/dL (11.7-16.9) L 02/21/17 06:20 Hct 28.5 % (35.4-49) L 02/21/17 06:20 MCV 84.6 fl (80-96) 02/21/17 06:20 MCHC 30.9 g/dl (32.0-35.9) L 02/21/17 06:20 RDW 18.7 % (11.9-15.9) H 02/21/17 06:20 Plt Count 158 K/MM3 (134-434) 02/21/17 06:20 Sodium 143 mmol/L (136-145) 02/23/17 06:30 Potassium 4.4 mmol/L (3.5-5.1) 02/23/17 06:30 Chloride 103 mmol/L (98-107) 02/23/17 06:30 Carbon Dioxide 29 mmol/L (21-32) 02/23/17 06:30 Anion Gap 11 (8-16) 02/23/17 06:30 BUN 69 mg/dL (7-18) H D 02/23/17 06:30 Creatinine 6.4 mg/dL (0.7-1.3) H D 02/23/17 06:30 Random Glucose 142 mg/dL (74-106) H 02/23/17 06:30 Calcium 8.2 mg/dL (8.5-10.1) L 02/23/17 06:30 Antibody Screen Cancelled 02/20/17 10:53 INR 1.08 (0.82-1.09) 02/21/17 06:20 - ASSESSMENT/PLAN 1. Make NPO after midnight except po meds 2. GI/DVT PPX 3. Medical optimization / clearance 4. Type and screen Visit type - Case Type Case Type: ED Admission
--- NOTE | 2017-02-23 14:29 | PN ---
Progress Note, Physician History of Present Illness: Pt seen and examined at bedside. He is awake and alert. He feels that his breathing is improved. - Current Medication List Current Medications: Active Medications Albuterol/Ipratropium (Duoneb -) 1 amp NEB Q4H PRN PRN Reason: SHORTNESS OF BREATH Albuterol/Ipratropium (Duoneb -) 1 amp NEB QIDR [facility] Last Admin: 02/23/17 12:12 Dose: 1 amp Amlodipine Besylate (Norvasc -) 5 mg PO DAILY [facility] Last Admin: 02/23/17 10:03 Dose: 5 mg Aspirin (Asa -) 81 mg PO DAILY [facility] Last Admin: 02/23/17 10:03 Dose: 81 mg Atorvastatin Calcium (Lipitor -) 10 mg PO HS [facility] Last Admin: 02/22/17 21:37 Dose: 10 mg Furosemide (Lasix Injection -) 80 mg IVPB BID [facility] Last Admin: 02/23/17 10:03 Dose: 80 mg Heparin Sodium (Porcine) (Heparin -) 5,000 unit SQ TID [facility] Last Admin: 02/23/17 05:00 Dose: 5,000 unit Hydralazine HCl (Apresoline -) 100 mg PO BID [facility] Last Admin: 02/22/17 21:36 Dose: 100 mg Labetalol HCl (Normodyne -) 600 mg PO BID [facility] Last Admin: 02/23/17 10:03 Dose: 600 mg Methylprednisolone Sodium Succinate (Solu-Medrol -) 40 mg IVPB ONCE ONE Stop: 02/23/17 15:01 - Objective Vital Signs: Vital Signs Temperature 99.4 F 02/23/17 09:00 Pulse Rate 83 02/23/17 12:11 Respiratory Rate 20 02/23/17 09:00 Blood Pressure 190/60 02/23/17 09:00 O2 Sat by Pulse Oximetry (%) 97 02/23/17 12:11 Constitutional: Yes: Calm Eyes: Yes: Conjunctiva Clear HENT: Yes: Atraumatic Cardiovascular: Yes: S1, S2 Respiratory: Yes: On Nasal O2 Gastrointestinal: Yes: Soft, Abdomen, Obese Genitourinary: Yes: Joel Present Edema: Yes Edema: LLE: 2+, RLE: 2+ Neurological: Yes: Oriented Psychiatric: Yes: Oriented Labs: CBC, BMP 02/21/17 06:20 02/23/17 06:30 INR, PTT INR 1.08 (0.82-1.09) 02/21/17 06:20 Problem List - Problems (1) CKD (chronic kidney disease) Code(s): N18.9 - CHRONIC KIDNEY DISEASE, UNSPECIFIED (2) HTN (hypertension) Code(s): I10 - ESSENTIAL (PRIMARY) HYPERTENSION Qualifiers: Hypertension type: essential hypertension Qualified Code(s): I10 - Essential (primary) hypertension (3) CHF (congestive heart failure) Code(s): I50.9 - HEART FAILURE, UNSPECIFIED Qualifiers: Congestive heart failure type: diastolic Congestive heart failure chronicity: acute on chronic Qualified Code(s): I50.33 - Acute on chronic diastolic (congestive) heart failure (4) Hyperkalemia Code(s): E87.5 - HYPERKALEMIA Assessment/Plan Current Medications Generic Name Dose Route Start Last Admin Trade Name Freq PRN Reason Stop Dose Admin Albuterol/Ipratropium 1 amp 02/22/17 12:55 Duoneb - NEB Q4H PRN SHORTNESS OF BREATH Albuterol/Ipratropium 1 amp 02/22/17 18:00 02/23/17 12:12 Duoneb - NEB 1 amp QIDR [facility] Administration Amlodipine Besylate 5 mg 02/23/17 10:00 02/23/17 10:03 Norvasc - PO 5 mg DAILY [facility] Administration Aspirin 81 mg 02/23/17 10:00 02/23/17 10:03 Asa - PO 81 mg DAILY [facility] Administration Atorvastatin Calcium 10 mg 02/22/17 22:00 02/22/17 21:37 Lipitor - PO 10 mg HS [facility] Administration Furosemide 80 mg 02/22/17 22:00 02/23/17 10:03 Lasix Injection - IVPB 80 mg BID [facility] Administration Heparin Sodium (Porcine) 5,000 unit 02/22/17 14:00 02/23/17 05:00 Heparin - SQ 5,000 unit TID [facility] Administration Hydralazine HCl 100 mg 02/22/17 22:00 02/22/17 21:36 Apresoline - PO 100 mg BID [facility] Administration Labetalol HCl 600 mg 02/22/17 22:00 02/23/17 10:03 Normodyne - PO 600 mg BID [facility] Administration Methylprednisolone Sodium Succinate 40 mg 02/23/17 15:00 Solu-Medrol - IVPB 02/23/17 15:01 ONCE ONE Impression 1. CKD 2. CHF 3. HTN 4. obesity 5. hyperlipidemia 6. hyperkalemia Plan - will arrange for HD today - pt is going for a fistula tomorrow - will switch lasix to PO daily - can d/c joel catheter - potassium is improved - pt would like to go to [facility] HD [facility] - will follow - discussed with medical attending - discussed plan with pt and his mother who is at bedside Dr Mancia
--- NOTE | 2017-02-23 14:47 | PN ---
Progress Note (short form) - Note Progress Note: PULMONARY States breathing is improving. No chest pain, minimal cough. Last Vital Signs Temp Pulse Resp BP Pulse Ox 99.4 F 83 20 190/60 97 02/23/17 09:00 02/23/17 12:11 02/23/17 09:00 02/23/17 09:00 02/23/17 12:11 Gen: NAD at rest Heart: RRR Lung: decreased breath sounds at the bases Abd: soft, nontender Ext: no edema CBC, BMP 02/21/17 06:20 02/23/17 06:30 Active Medications Albuterol/Ipratropium (Duoneb -) 1 amp NEB Q4H PRN PRN Reason: SHORTNESS OF BREATH Albuterol/Ipratropium (Duoneb -) 1 amp NEB QIDR [facility] Last Admin: 02/23/17 12:12 Dose: 1 amp Amlodipine Besylate (Norvasc -) 5 mg PO DAILY [facility] Last Admin: 02/23/17 10:03 Dose: 5 mg Aspirin (Asa -) 81 mg PO DAILY [facility] Last Admin: 02/23/17 10:03 Dose: 81 mg Atorvastatin Calcium (Lipitor -) 10 mg PO HS [facility] Last Admin: 02/22/17 21:37 Dose: 10 mg Furosemide (Lasix Injection -) 80 mg IVPB DAILY [facility] Heparin Sodium (Porcine) (Heparin -) 5,000 unit SQ TID [facility] Last Admin: 02/23/17 05:00 Dose: 5,000 unit Hydralazine HCl (Apresoline -) 100 mg PO BID [facility] Last Admin: 02/22/17 21:36 Dose: 100 mg Labetalol HCl (Normodyne -) 600 mg PO BID [facility] Last Admin: 02/23/17 10:03 Dose: 600 mg Methylprednisolone Sodium Succinate (Solu-Medrol -) 40 mg IVPB ONCE ONE Stop: 02/23/17 15:01 A/P Acute Hypoxic and Hypercapneic Respiratory Failure resolved COPD Acute on Chronic Diastolic Heart Failure Pulmonary HTN Morbid Obesity KIM ESRD on HD - continue lasix - HD per renal - inhaled bronchodilators - O2 as needed - BiPAP at night and PRN during day - DVT prophylaxis - outpt PFTs, PSG
[2017-02-23] MEDS ORDERED: methylPREDNISolone NA SUCC 40 MG/1 ML VIAL IVPB ONE (15:00)
[2017-02-23] MEDS: hydrALAZINE HCL 50 MG TABLET (FP) PO SCH ×2 (17:03→23:14)
[2017-02-23] MEDS: ATORVASTATIN CA 10 MG TABLET (FP) PO SCH (23:14)
[2017-02-24 00:12] LABS: ALBUMIN 3.1 g/dL (2.9-4.4); GLOBULIN, TOTAL 3.2 g/dL (2.2-3.9); M-SPIKE Not Observed g/dL (Not Observed); TOTAL PROTEIN 6.3 g/dL (6.0-8.5)
[2017-02-24] MEDS: ALBUTEROL SO4 2.5/IPRATROPIUM 0.5 INH SOL 3 ML VIAL.NEB. NEB SCH ×3 (05:41→18:22)
[2017-02-24] MEDS: HEPARIN NA (PORCINE) 5,000 UNITS/ML 1ML VIAL SQ SCH ×3 (05:57→21:44)
[2017-02-24 07:37] LABS: MCH 26.7 pg (25.7-33.7); MCHC 32.6 g/dl (32.0-35.9); MEAN CELL VOLUME 82.1 fl (80-96); MEAN PLT VOLUME 8.3 fl (7.5-11.1); PLATELET COUNT 142 K/MM3 (134-434); RDW 18.3 % (11.9-15.9); WHITE BLOOD COUNT 8.9 K/mm3 (4.0-10.0)
[2017-02-24 08:03] LABS: ALBUMIN 3.1 g/dl (3.4-5.0); CALCIUM 7.8 mg/dL (8.5-10.1)
[2017-02-24 08:07] LABS: BILIRUBIN,TOTAL 0.4 mg/dL (0.2-1.0); COCKROFT - GAULT 32.74; CREATININE 4.8 mg/dL (0.7-1.3); TOT PROT 6.5 g/dl (6.4-8.2)
[2017-02-24] MEDS: ASPIRIN 81 MG CHEWABLE TABLETS PO SCH (09:09)
[2017-02-24] MEDS: hydrALAZINE HCL 50 MG TABLET (FP) PO SCH ×2 (09:09→21:43)
[2017-02-24] MEDS: LABETALOL HCL 200 MG TABLET (FP) PO SCH ×2 (09:09→21:43)
[2017-02-24] MEDS: amLODIPine BESYLATE 5 MG TABLET (FP) PO SCH (09:09)
[2017-02-24] MEDS ORDERED: FUROSEMIDE 100 MG/10 ML INJECTABLE VIAL IVPB SCH (10:00)
--- NOTE | 2017-02-24 10:31 | PN ---
Progress Note (short form) - Note Progress Note: SUBJECTIVE: Patient seen and examined. Chart reviewed. Comfortable. Feels better. No complaints offered. Scheduled for AV fistula later today. Had dialysis yesterday. OBJECTIVE: Vital Signs 02/24/17 02/24/17 02/24/17 03:59 06:00 09:00 Temperature 97.9 F 98.0 F Pulse Rate 74 68 Respiratory 20 18 Rate Blood Pressure 157/94 164/84 O2 Sat by Pulse 97 93 L Oximetry (%) Intake & Output 02/23/17 02/24/17 02/24/17 23:59 07:59 15:59 Intake Total 200 Balance 200 Weight 134.717 kg Intake: Oral 200 Other: Voiding Method Toilet Toilet # Unmeasured Voids Reynolds 2 Weight Measurement Method Standing Scale Active Medications Albuterol/Ipratropium (Duoneb -) 1 amp NEB Q4H PRN PRN Reason: SHORTNESS OF BREATH Albuterol/Ipratropium (Duoneb -) 1 amp NEB QIDR [facility] Last Admin: 02/24/17 05:41 Dose: 1 amp Amlodipine Besylate (Norvasc -) 5 mg PO DAILY [facility] Last Admin: 02/24/17 09:09 Dose: 5 mg Aspirin (Asa -) 81 mg PO DAILY [facility] Last Admin: 02/24/17 09:09 Dose: 81 mg Atorvastatin Calcium (Lipitor -) 10 mg PO HS [facility] Last Admin: 02/23/17 23:14 Dose: 10 mg Furosemide (Lasix Injection -) 80 mg IVPB DAILY [facility] Last Admin: 02/24/17 09:17 Dose: 80 mg Heparin Sodium (Porcine) (Heparin -) 5,000 unit SQ TID [facility] Last Admin: 02/24/17 05:57 Dose: 5,000 unit Hydralazine HCl (Apresoline -) 100 mg PO BID [facility] Last Admin: 02/24/17 09:09 Dose: 100 mg Labetalol HCl (Normodyne -) 600 mg PO BID [facility] Last Admin: 02/24/17 09:09 Dose: 600 mg CBC, BMP 02/24/17 06:00 02/24/17 06:00 Laboratory Results - last 24 hr 02/21/17 02/22/17 02/23/17 06:20 06:20 13:10 WBC RBC Hgb Hct MCV MCHC RDW Plt Count MPV Sodium Potassium Chloride Carbon Dioxide Anion Gap BUN Creatinine Creat Clearance w eGFR Random Glucose Calcium Total Bilirubin AST ALT Alkaline Phosphatase Prot Electrophoresis Serum Total Protein 6.3 Total Protein Albumin 3.1 Globulin 3.2 Albumin/Globulin Ratio 1.0 Mfebw-5-Snumbkfii 0.3 Cxsnx-5-Krglwgckl 0.7 Beta Globulins 1.0 Gamma Globulins 1.2 EUGENIA M-Brendon Not observed AMY Screen Positive H AMY Homogeneous Pattern 1:80 AMY Nucleolar Pattern TNP AMY Speckled Pattern TNP AMY Centromere Pattern TNP Blood Type O POSITIVE Antibody Screen Negative 02/23/17 02/24/17 02/24/17 13:20 06:00 06:00 WBC 8.9 D RBC 3.27 L Hgb 8.8 L Hct 26.9 L MCV 82.1 MCHC 32.6 RDW 18.3 H Plt Count 142 MPV 8.3 Sodium 142 Potassium 3.6 Chloride 101 Carbon Dioxide 32 Anion Gap 9 BUN 52 H D Creatinine 4.8 H D Creat Clearance w eGFR 12.65 Random Glucose 113 H D Calcium 7.8 L Total Bilirubin 0.4 D AST 12 L ALT 18 D Alkaline Phosphatase 63 Prot Electrophoresis Serum Total Protein Total Protein 6.5 Albumin 3.1 L Globulin Albumin/Globulin Ratio Cqkwc-7-Wramhugpp Zlytd-6-Cgpqnjtdx Beta Globulins Gamma Globulins EUGENIA M-Brendon AMY Screen AMY Homogeneous Pattern AMY Nucleolar Pattern AMY Speckled Pattern AMY Centromere Pattern Blood Type O POSITIVE Antibody Screen PHYSICAL EXAMINATION: Constitutional: Yes: No Distress Cardiovascular: Yes: Regular Rate and Rhythm Chest: Permacath in place Respiratory: Yes: Diminished at bases. Gastrointestinal: Yes: Normal Bowel Sounds, Soft, Abdomen, Obese. No: Distention, Tenderness Edema: Yes Edema: LLE: 1+, RLE: 1+ Problem List - Problems (1) Acute on chronic respiratory failure with hypoxia and hypercapnia Code(s): J96.21 - ACUTE AND CHRONIC RESPIRATORY FAILURE WITH HYPOXIA J96.22 - ACUTE AND CHRONIC RESPIRATORY FAILURE WITH HYPERCAPNIA (2) CHF (congestive heart failure) Code(s): I50.9 - HEART FAILURE, UNSPECIFIED Qualifiers: Congestive heart failure type: diastolic Congestive heart failure chronicity: acute on chronic Qualified Code(s): I50.33 - Acute on chronic diastolic (congestive) heart failure (3) CKD (chronic kidney disease) Code(s): N18.9 - CHRONIC KIDNEY DISEASE, UNSPECIFIED (4) HTN (hypertension) Code(s): I10 - ESSENTIAL (PRIMARY) HYPERTENSION Qualifiers: Hypertension type: essential hypertension Qualified Code(s): I10 - Essential (primary) hypertension (5) Hyperkalemia Code(s): E87.5 - HYPERKALEMIA (6) Sleep apnea Code(s): G47.30 - SLEEP APNEA, UNSPECIFIED Qualifiers: Sleep apnea type: obstructive Qualified Code(s): G47.33 - Obstructive sleep apnea (adult) (pediatric) (7) Acute on chronic renal failure Code(s): N17.9 - ACUTE KIDNEY FAILURE, UNSPECIFIED N18.9 - CHRONIC KIDNEY DISEASE, UNSPECIFIED ASSESSMENT & PLAN: - For AVF placement today - Continue present care. - Medications reviewed. - Will follow. - Outpatient dialysis will be scheduled. Documentation prepared by Dawna Morales, acting as a medical professionals for Cecilia Damon MD.
--- NOTE | 2017-02-24 10:41 | PN ---
Progress Note (short form) - Note Progress Note: S: feeling well, tolerated HD, no cp sob palps dizzy o: Vital Signs Period Temp Pulse Resp BP Sys/Iraheta Pulse Ox Last 24 Hr 97.9 F-98.5 F 68-88 18-20 153-224/84-114 90-98 Nad, no jvd rrr nl s1, s2 2/6 sys murmur at apex cta bl nl eff no le e/c/c no jaundice, diaphoresis Current Medications Generic Name Dose Route Start Last Admin Trade Name Freq PRN Reason Stop Dose Admin Albuterol/Ipratropium 1 amp 02/22/17 12:55 Duoneb - NEB Q4H PRN SHORTNESS OF BREATH Albuterol/Ipratropium 1 amp 02/22/17 18:00 02/24/17 05:41 Duoneb - NEB 1 amp QIDR MEME Administration Amlodipine Besylate 5 mg 02/23/17 10:00 02/24/17 09:09 Norvasc - PO 5 mg DAILY MEME Administration Aspirin 81 mg 02/23/17 10:00 02/24/17 09:09 Asa - PO 81 mg DAILY MEME Administration Atorvastatin Calcium 10 mg 02/22/17 22:00 02/23/17 23:14 Lipitor - PO 10 mg HS MEME Administration Furosemide 80 mg 02/24/17 10:00 02/24/17 09:17 Lasix Injection - IVPB 80 mg DAILY MEME Administration Heparin Sodium (Porcine) 5,000 unit 02/22/17 14:00 02/24/17 05:57 Heparin - SQ 5,000 unit TID MEME Administration Hydralazine HCl 100 mg 02/22/17 22:00 02/24/17 09:09 Apresoline - PO 100 mg BID MEME Administration Labetalol HCl 600 mg 02/22/17 22:00 02/24/17 09:09 Normodyne - PO 600 mg BID MEME Administration CBC, BMP 02/24/17 06:00 02/24/17 06:00 tele: sr, pvcs, nsvt 4 beats echo 02/2017: nl lvef, mod lve, mild rve, nl rv fcn, mild lae, mild-mod tr Echo 07/2014: normal LV/RV function, mod concentric LVH, no sig valv abn Echo 03/2013: normal LV/RV function, mild to mod concentric LVH, no sig valv abn Stress MPI 03/2013: moderate anny-lateral scar and infero-lateral ischemia. enlarged LV a/p: 57 yo HTN, HPL,morbid obesity, CAD (ab stress - tx medically due to high risk for ATN) severe BUTCH, ESRD who presents with sob. sob, acute diastolic and possibly right heart failure exacerbation - may be exacerbated by volume overload from ESRD. - after lasix and now HD, starting to have less vol overload - cont lasix and HD per renal hyperkalemia -improved, now on HD CAD - trop negative. ekg without acute ischemic changes - cont asa, statin bb, htn - cont current meds, monitor for fluctuations now that on HD butch - bipap esrd -now on HD
[2017-02-24] MEDS ORDERED: HEPARIN NA (PORCINE) 5,000 UNITS/ML 1ML VIAL ONE (10:59)
[2017-02-24] MEDS ORDERED: LIDOCAINE HCL 1%, 10 MG/ML (20ML VIAL) ONE (10:59)
[2017-02-24] MEDS ORDERED: POVIDONE-IODINE OINTMENT 10% - 28.4 GM TUBE ONE ×2 (11:14→16:37)
--- NOTE | 2017-02-24 12:36 | PN ---
Progress Note, Physician History of Present Illness: PULMONARY ALERT,FEELING BETTER,OOB-CHAIR,-RESP DISTRESS - Current Medication List Current Medications: Active Medications Albuterol/Ipratropium (Duoneb -) 1 amp NEB Q4H PRN PRN Reason: SHORTNESS OF BREATH Albuterol/Ipratropium (Duoneb -) [address] [facility] Last Admin: 02/24/17 05:41 Dose: 1 amp Amlodipine Besylate (Norvasc -) [address] [facility] Last Admin: 02/24/17 09:09 Dose: 5 mg Aspirin (Asa -) [address] [facility] Last Admin: 02/24/17 09:09 Dose: 81 mg Atorvastatin Calcium (Lipitor -) [address] [facility] Last Admin: 02/23/17 23:14 Dose: 10 mg Furosemide (Lasix Injection -) [address] [facility] Last Admin: 02/24/17 09:17 Dose: 80 mg Heparin Sodium (Porcine) (Heparin -) 5,[address] [facility] Last Admin: 02/24/17 05:57 Dose: 5,000 unit Hydralazine HCl (Apresoline -) [address] [facility] Last Admin: 02/24/17 09:09 Dose: 100 mg Labetalol HCl (Normodyne -) [address] [facility] Last Admin: 02/24/17 09:09 Dose: 600 mg - Objective Vital Signs: Vital Signs Temperature 98.0 F 02/24/17 09:00 Pulse Rate 68 02/24/17 09:00 Respiratory Rate 18 02/24/17 09:00 Blood Pressure 164/84 02/24/17 09:00 O2 Sat by Pulse Oximetry (%) 93 L 02/24/17 09:00 Constitutional: Yes: Well Nourished, Calm Eyes: Yes: WNL HENT: Yes: WNL Neck: Yes: WNL Cardiovascular: Yes: Regular Rate and Rhythm, S1, S2 Respiratory: Yes: Diminished Gastrointestinal: Yes: Normal Bowel Sounds, Soft Extremities: Yes: WNL Edema: Yes Labs: CBC, BMP 02/24/17 06:00 02/24/17 06:00 INR, PTT INR 1.08 (0.82-1.09) 02/21/17 06:20 Problem List - Problems (1) CHF (congestive heart failure) Code(s): I50.9 - HEART FAILURE, UNSPECIFIED Qualifiers: Congestive heart failure type: diastolic Congestive heart failure chronicity: acute on chronic Qualified Code(s): I50.33 - Acute on chronic diastolic (congestive) heart failure (2) CKD (chronic kidney disease) Code(s): N18.9 - CHRONIC KIDNEY DISEASE, UNSPECIFIED (3) HTN (hypertension) Code(s): I10 - ESSENTIAL (PRIMARY) HYPERTENSION Qualifiers: Hypertension type: essential hypertension Qualified Code(s): I10 - Essential (primary) hypertension (4) Hyperkalemia Code(s): E87.5 - HYPERKALEMIA (5) Sleep apnea Code(s): G47.30 - SLEEP APNEA, UNSPECIFIED Qualifiers: Sleep apnea type: obstructive Qualified Code(s): G47.33 - Obstructive sleep apnea (adult) (pediatric) (6) Acute on chronic respiratory failure with hypoxia and hypercapnia Code(s): J96.21 - ACUTE AND CHRONIC RESPIRATORY FAILURE WITH HYPOXIA J96.22 - ACUTE AND CHRONIC RESPIRATORY FAILURE WITH HYPERCAPNIA Assessment/Plan IMP ACUTE HYPOXEMIC/HYPERCAPNEIC RESPIRATORY FAILURE CLINICALLY IMPROVING COPD CHF CHRONIC RENAL FAILURE HTN OSAS PLAN BIPAP LASIX INHALED BRONCHODILATORS O2 DAILY WTS MONITOR LYTES HD PER RENAL STRICT I+OS DR BLUM Problem List - Problems (1) CHF (congestive heart failure) Code(s): I50.9 - HEART FAILURE, UNSPECIFIED Qualifiers: Congestive heart failure type: diastolic Congestive heart failure chronicity: acute on chronic Qualified Code(s): I50.33 - Acute on chronic diastolic (congestive) heart failure (2) CKD (chronic kidney disease) Code(s): N18.9 - CHRONIC KIDNEY DISEASE, UNSPECIFIED (3) HTN (hypertension) Code(s): I10 - ESSENTIAL (PRIMARY) HYPERTENSION Qualifiers: Hypertension type: essential hypertension Qualified Code(s): I10 - Essential (primary) hypertension (4) Hyperkalemia Code(s): E87.5 - HYPERKALEMIA (5) Sleep apnea Code(s): G47.30 - SLEEP APNEA, UNSPECIFIED Qualifiers: Sleep apnea type: obstructive Qualified Code(s): G47.33 - Obstructive sleep apnea (adult) (pediatric) (6) Acute on chronic respiratory failure with hypoxia and hypercapnia Code(s): J96.21 - ACUTE AND CHRONIC RESPIRATORY FAILURE WITH HYPOXIA J96.22 - ACUTE AND CHRONIC RESPIRATORY FAILURE WITH HYPERCAPNIA
[2017-02-24] MEDS ORDERED: ROPIVACAINE HCL 0.5% 30ML VIAL ONE (13:38)
[2017-02-24] MEDS ORDERED: MIDAZOLAM HCL 2 MG/2 ML SINGLE DOSE VIAL ONE ×2 (13:40)
[2017-02-24] MEDS ORDERED: ceFAZolin SODIUM 1 GM VIAL IVPB ONE ×2 (14:55)
[2017-02-24] MEDS ORDERED: ceFAZolin SODIUM 1 GM VIAL ONE (15:14)
[2017-02-24] MEDS ORDERED: LIDOCAINE HCL 1%, 10 MG/ML (20ML VIAL) IJ ONE ×2 (15:20)
--- NOTE | 2017-02-24 15:26 | PN ---
Progress Note, Physician History of Present Illness: Pt seen and examined at bedside. He is awake and alert. He is going for a fistula today. - Current Medication List Current Medications: Active Medications Albuterol/Ipratropium (Duoneb -) 1 amp NEB Q4H PRN PRN Reason: SHORTNESS OF BREATH Albuterol/Ipratropium (Duoneb -) 1 amp NEB QIDR [facility] Last Admin: 02/24/17 11:25 Dose: 1 amp Amlodipine Besylate (Norvasc -) 5 mg PO DAILY [facility] Last Admin: 02/24/17 09:09 Dose: 5 mg Aspirin (Asa -) 81 mg PO DAILY [facility] Last Admin: 02/24/17 09:09 Dose: 81 mg Atorvastatin Calcium (Lipitor -) 10 mg PO HS [facility] Last Admin: 02/23/17 23:14 Dose: 10 mg Furosemide (Lasix Injection -) 80 mg IVPB DAILY [facility] Last Admin: 02/24/17 09:17 Dose: 80 mg Heparin Sodium (Porcine) (Heparin -) 5,000 unit SQ TID [facility] Last Admin: 02/24/17 13:32 Dose: Not Given Hydralazine HCl (Apresoline -) 100 mg PO BID [facility] Last Admin: 02/24/17 09:09 Dose: 100 mg Labetalol HCl (Normodyne -) 600 mg PO BID [facility] Last Admin: 02/24/17 09:09 Dose: 600 mg - Objective Vital Signs: Vital Signs Temperature 98.0 F 02/24/17 09:00 Pulse Rate 72 02/24/17 11:25 Respiratory Rate 18 02/24/17 09:00 Blood Pressure 164/84 02/24/17 09:00 O2 Sat by Pulse Oximetry (%) 97 02/24/17 11:25 Constitutional: Yes: Calm Eyes: Yes: Conjunctiva Clear HENT: Yes: Atraumatic Neck: Yes: Supple Cardiovascular: Yes: S1, S2 Respiratory: Yes: CTA Bilaterally Gastrointestinal: Yes: Soft, Abdomen, Obese Genitourinary: Yes: WNL Musculoskeletal: Yes: WNL Edema: Yes Edema: LLE: 2+, RLE: 2+ Neurological: Yes: Oriented Psychiatric: Yes: Oriented Labs: CBC, BMP 02/24/17 06:00 02/24/17 06:00 INR, PTT INR 1.08 (0.82-1.09) 02/21/17 06:20 Problem List - Problems (1) CKD (chronic kidney disease) Code(s): N18.9 - CHRONIC KIDNEY DISEASE, UNSPECIFIED (2) HTN (hypertension) Code(s): I10 - ESSENTIAL (PRIMARY) HYPERTENSION Qualifiers: Hypertension type: essential hypertension Qualified Code(s): I10 - Essential (primary) hypertension (3) CHF (congestive heart failure) Code(s): I50.9 - HEART FAILURE, UNSPECIFIED Qualifiers: Congestive heart failure type: diastolic Congestive heart failure chronicity: acute on chronic Qualified Code(s): I50.33 - Acute on chronic diastolic (congestive) heart failure (4) Hyperkalemia Code(s): E87.5 - HYPERKALEMIA Assessment/Plan Current Medications Generic Name Dose Route Start Last Admin Trade Name Freq PRN Reason Stop Dose Admin Albuterol/Ipratropium 1 amp 02/22/17 12:55 Duoneb - NEB Q4H PRN SHORTNESS OF BREATH Albuterol/Ipratropium 1 amp 02/22/17 18:00 02/24/17 11:25 Duoneb - NEB 1 amp QIDR [facility]E Administration Amlodipine Besylate 5 mg 02/23/17 10:00 02/24/17 09:09 Norvasc - PO 5 mg DAILY [facility]E Administration Aspirin 81 mg 02/23/17 10:00 02/24/17 09:09 Asa - PO 81 mg DAILY [facility] Administration Atorvastatin Calcium 10 mg 02/22/17 22:00 02/23/17 23:14 Lipitor - PO 10 mg HS MEME Administration Furosemide 80 mg 02/24/17 10:00 02/24/17 09:17 Lasix Injection - IVPB 80 mg DAILY [facility]E Administration Heparin Sodium (Porcine) 5,000 unit 02/22/17 14:00 02/24/17 13:32 Heparin - SQ Not Given TID MEME Hydralazine HCl 100 mg 02/22/17 22:00 02/24/17 09:09 Apresoline - PO 100 mg BID MEME Administration Labetalol HCl 600 mg 02/22/17 22:00 02/24/17 09:09 Normodyne - PO 600 mg BID MEME Administration Impression 1. CKD 2. CHF 3. HTN 4. obesity 5. hyperlipidemia 6. hyperkalemia Plan - HD in am - pt going for fistula today - can change lasix to PO - HD set up for Monday at [facility] - cont current meds - will follow Dr Mancia
[2017-02-24] MEDS ORDERED: ONDANSETRON 4 MG/2 ML VIAL IVPUSH PRN ×2 (16:54→17:35)
[2017-02-24] MEDS ORDERED: ACETAMINOPHEN 500 MG TABLET (FP) PO PRN ×2 (16:54→17:35)
--- NOTE | 2017-02-24 17:03 | OP ---
Operative Note - Note: Operative Date: 02/24/17 Pre-Operative Diagnosis: ESRD Operation: Creation of left radial artery to cephalic vein fistula Post-Operative Diagnosis: Same as Pre-op Surgeon: Maikol Hernandez Anesthesia: Fractional Estimated Blood Loss (mls): 20 Operative Report Dictated: Yes
[2017-02-24] MEDS ORDERED: ALBUTEROL SO4 2.5/IPRATROPIUM 0.5 INH SOL 3 ML VIAL.NEB. NEB PRN (17:35)
[2017-02-24] MEDS: ATORVASTATIN CA 10 MG TABLET (FP) PO SCH (21:43)
[2017-02-25] MEDS: ALBUTEROL SO4 2.5/IPRATROPIUM 0.5 INH SOL 3 ML VIAL.NEB. NEB SCH ×5 (06:17→23:54)
[2017-02-25] MEDS: HEPARIN NA (PORCINE) 5,000 UNITS/ML 1ML VIAL SQ SCH ×3 (06:20→21:08)
--- NOTE | 2017-02-25 06:24 | OP ---
DATE OF OPERATION: 02/24/2017 PREOPERATIVE DIAGNOSIS: End-stage renal disease. POSTOPERATIVE DIAGNOSIS: End-stage renal disease. PROCEDURE: Creation of left radial artery to cephalic vein fistula. SURGEON: Maikol Olivo MD ANESTHESIA: Fractional with a nerve block. BLOOD LOSS: 20 mL. DESCRIPTION OF PROCEDURE: The patient is a 57-year-old male who has acute renal failure and needs permanent dialysis access. Preoperatively, he had vein mapping performed showing that he has good cephalic vein going all the way down to his wrsit. In the holding area, patient had a supraclavicular nerve block performed in the left upper extremity. We then brought the patient into the operating room, put a tourniquet on his left arm and mapped out a cephalic vein all the way down to his wrist. We then shannan with a skin marker to the cephalic vein above the wrist and shannan the radial artery under ultrasound guidance, as well with a skin marker. We then went ahead and prepped and draped the left upper extremity in a sterile surgical manner. We then went ahead and used a No. 15 blade and made a 5-cm incision over the cephalic vein. Bovie electrocautery was used to control hemostasis, and we were able to dissect down to cephalic vein. The cephalic vein was then dissected anteriorly and posteriorly, and all branches were ligated using 4-0 silk. We then went medially through the same incision, and using Bovie electrocautery, got down to the fascia. We then dissected out a radial artery. Radial artery was dissected anteriorly and posteriorly, and vessel loops were placed proximally and distally. We then administered to the patient 5000 units of IV heparin. We then ligated the cephalic vein distally at the wrist with 3-0 silk. We then placed a 4-Spanish feeding tube into the vein, and then, the vein dilated appropriately, and there was good flow in it. At this point, using Micro Marshall Scissors, we made a 7-mm venotomy on the vein. We then got after 3 minutes to be on IV heparin. We got distal and proximal control and made an arteriotomy using a 15-blade, which was then extended to 7 mm using Marshall scissors. We then placed 6-0 Prolene stay sutures on the artery. Then using 6-0 Prolene double-armed, we went outside-in on the vein and inside out on the artery and ran the stitch around forming an anastomosis suture of the artery into vein. We then opened the distal artery first, then the proximal artery, and there was a good thrill in our AV fistula. The wound was well irrigated. Then, 3-0 Vicryl was used and the subcutaneous tissue was approximated in an interrupted manner, and the skin was closed with skin jeanne. Area was wet and dried, 4x4 and Tegaderm were placed. Patient tolerated the procedure with no complications. Patient transferred to PACU in stable condition. Total blood loss 20 mL. MAIKOL OLIVO DO [id number]
[2017-02-25 08:22] LABS: CALCIUM 7.7 mg/dL (8.5-10.1); CREATININE 5.6 mg/dL (0.7-1.3)
[2017-02-25] MEDS ORDERED: FUROSEMIDE 40 MG TABLET (FP) PO SCH (10:00)
[2017-02-25] MEDS ORDERED: ACETAMINOPHEN 325 MG TABLET (FP) ONE (11:05)
[2017-02-25] MEDS: hydrALAZINE HCL 50 MG TABLET (FP) PO SCH ×3 (11:08→21:09)
[2017-02-25] MEDS: ASPIRIN 81 MG CHEWABLE TABLETS PO SCH (11:08)
[2017-02-25] MEDS: LABETALOL HCL 200 MG TABLET (FP) PO SCH ×2 (11:08→21:09)
[2017-02-25] MEDS: amLODIPine BESYLATE 5 MG TABLET (FP) PO SCH (11:09)
[2017-02-25] MEDS: FUROSEMIDE 40 MG TABLET (FP) PO SCH (11:09)
[2017-02-25] MEDS ORDERED: ACETAMINOPHEN 500 MG TABLET (FP) PO PRN (11:24)
--- NOTE | 2017-02-25 11:31 | PN ---
Progress Note (short form) - Note Progress Note: pt seen/ examined today Being dialized s/p av fistula creation yesterday -- lue mild pain + no other issues . denies cp/ sob. bp running high Vital Signs Temp 98.6 F 02/25/17 06:00 Pulse 72 02/25/17 10:00 Resp 18 02/25/17 10:00 BP 174/87 02/25/17 10:00 Pulse Ox 95 02/24/17 21:00 Intake & Output 02/24/17 02/24/17 02/25/17 11:59 23:59 11:59 Intake Total 400 50 570 Output Total 0 Balance 400 50 570 Weight 297 lb 297 lb 4 oz Intake: IV 200 50 Oral 200 570 Output: Urine 0 Other: Voiding Method Toilet Toilet Toilet # Unmeasured Voids Reynolds 2 2 Weight Measurement Method Standing Scale Standing Scale Active Medications Acetaminophen (Tylenol -) 500 mg PO Q6H PRN PRN Reason: FEVER OR PAIN Albuterol/Ipratropium (Duoneb -) 1 amp NEB Q4H PRN PRN Reason: SHORTNESS OF BREATH Albuterol/Ipratropium (Duoneb -) 1 amp NEB QIDR [facility] Last Admin: 02/25/17 06:17 Dose: 1 amp Amlodipine Besylate (Norvasc -) 5 mg PO DAILY [facility] Last Admin: 02/25/17 11:09 Dose: 5 mg Aspirin (Asa -) 81 mg PO DAILY [facility] Last Admin: 02/25/17 11:08 Dose: 81 mg Atorvastatin Calcium (Lipitor -) 10 mg PO HS [facility] Last Admin: 02/24/17 21:43 Dose: 10 mg Fentanyl (Sublimaze Injection -) 25 mcg IVPUSH [id number] PRN PRN Reason: PAIN Stop: 02/27/17 16:55 Furosemide (Lasix -) 80 mg PO DAILY [facility] Last Admin: 02/25/17 11:09 Dose: 80 mg Heparin Sodium (Porcine) (Heparin -) 5,000 unit SQ TID [facility] Last Admin: 02/25/17 06:20 Dose: 5,000 unit Hydralazine HCl (Apresoline -) 100 mg PO BID [facility] Last Admin: 02/25/17 11:08 Dose: 100 mg Labetalol HCl (Normodyne -) 600 mg PO BID [facility] Last Admin: 02/25/17 11:08 Dose: 600 mg Tramadol HCl (Ultram -) 50 mg PO Q8H PRN PRN Reason: PAIN CBC, BMP 02/24/17 06:00 02/25/17 06:20 PHYSICAL EXAMINATION: Constitutional: Yes: No Distress Cardiovascular: Yes: Regular Rate and Rhythm Chest: Permacath in place Respiratory: Yes: Diminished at bases. Gastrointestinal: Yes: Normal Bowel Sounds, Soft, Abdomen, Obese. No: Distention, Tenderness Edema: LLE: 1+, RLE: 1+ LUE-- Avf in place- dressing + Problem List - Problems (1) Acute on chronic respiratory failure with hypoxia and hypercapnia Code(s): J96.21 - ACUTE AND CHRONIC RESPIRATORY FAILURE WITH HYPOXIA J96.22 - ACUTE AND CHRONIC RESPIRATORY FAILURE WITH HYPERCAPNIA (2) CHF (congestive heart failure) Code(s): I50.9 - HEART FAILURE, UNSPECIFIED Qualifiers: Congestive heart failure type: diastolic Congestive heart failure chronicity: acute on chronic Qualified Code(s): I50.33 - Acute on chronic diastolic (congestive) heart failure (3) CKD (chronic kidney disease) Code(s): N18.9 - CHRONIC KIDNEY DISEASE, UNSPECIFIED (4) HTN (hypertension) Code(s): I10 - ESSENTIAL (PRIMARY) HYPERTENSION Qualifiers: Hypertension type: essential hypertension Qualified Code(s): I10 - Essential (primary) hypertension (5) Hyperkalemia Code(s): E87.5 - HYPERKALEMIA (6) Sleep apnea Code(s): G47.30 - SLEEP APNEA, UNSPECIFIED Qualifiers: Sleep apnea type: obstructive Qualified Code(s): G47.33 - Obstructive sleep apnea (adult) (pediatric) (7) Acute on chronic renal failure Code(s): N17.9 - ACUTE KIDNEY FAILURE, UNSPECIFIED N18.9 - CHRONIC KIDNEY DISEASE, UNSPECIFIED ASSESSMENT & PLAN: -s/p AVF placement - overall better - Continue present care. - Medications reviewed. - Monitor bp - if bp better and out pt dialysis scheduled - will d/c tomorrow -- will follow
--- NOTE | 2017-02-25 11:40 | PN ---
Progress Note, Physician Chief Complaint: Pt. doing well. Numbness from supraclavicular nerve block has worn off and he has full function of arm and hand with good pain control. - Current Medication List Current Medications: Active Medications Acetaminophen (Tylenol -) 500 mg PO Q6H PRN PRN Reason: FEVER OR PAIN Albuterol/Ipratropium (Duoneb -) 1 amp NEB Q4H PRN PRN Reason: SHORTNESS OF BREATH Albuterol/Ipratropium (Duoneb -) 1 amp NEB QIDR [facility] Last Admin: 02/25/17 06:17 Dose: 1 amp Amlodipine Besylate (Norvasc -) 5 mg PO DAILY [facility] Last Admin: 02/25/17 11:09 Dose: 5 mg Aspirin (Asa -) 81 mg PO DAILY [facility] Last Admin: 02/25/17 11:08 Dose: 81 mg Atorvastatin Calcium (Lipitor -) 10 mg PO HS [facility] Last Admin: 02/24/17 21:43 Dose: 10 mg Fentanyl (Sublimaze Injection -) 25 mcg IVPUSH [id number] PRN PRN Reason: PAIN Stop: 02/27/17 16:55 Furosemide (Lasix -) 80 mg PO DAILY [facility] Last Admin: 02/25/17 11:09 Dose: 80 mg Heparin Sodium (Porcine) (Heparin -) 5,000 unit SQ TID [facility] Last Admin: 02/25/17 06:20 Dose: 5,000 unit Hydralazine HCl (Apresoline -) 100 mg PO BID [facility] Last Admin: 02/25/17 11:08 Dose: 100 mg Labetalol HCl (Normodyne -) 600 mg PO BID [facility] Last Admin: 02/25/17 11:08 Dose: 600 mg Tramadol HCl (Ultram -) 50 mg PO Q8H PRN PRN Reason: PAIN - Objective Vital Signs: Vital Signs Temperature 98.6 F 02/25/17 06:00 Pulse Rate 72 02/25/17 10:00 Respiratory Rate 18 02/25/17 10:00 Blood Pressure 174/87 02/25/17 10:00 O2 Sat by Pulse Oximetry (%) 95 02/24/17 21:00 Constitutional: Yes: Well Nourished, No Distress, Calm Musculoskeletal: Yes: WNL Neurological: Yes: WNL, Alert, Oriented ...Motor Strength: WNL Labs: CBC, BMP 02/24/17 06:00 02/25/17 06:20 INR, PTT INR 1.08 (0.82-1.09) 02/21/17 06:20 Assessment/Plan POD#1 s/p left AV-fistula creation under supraclavicular block and MAC. Doing well. D/C from anesthesia care.
[2017-02-25] MEDS ORDERED: ACETAMINOPHEN 325 MG TABLET (FP) PO ONE (12:45)
[2017-02-25 13:30] LABS: COCKROFT - GAULT 47.6; CREATININE 3.3 mg/dL (0.7-1.3)
--- NOTE | 2017-02-25 13:35 | PN ---
Progress Note (short form) - Note Progress Note: S: feeling well, tolerated HD, no cp sob palps dizzy. Hypertensive overnight o: Current Medications Acetaminophen (Tylenol -) 500 mg PO Q6H PRN PRN Reason: FEVER OR PAIN Albuterol/Ipratropium (Duoneb -) 1 amp NEB Q4H PRN PRN Reason: SHORTNESS OF BREATH Albuterol/Ipratropium (Duoneb -) 1 amp NEB QIDR [facility] Last Admin: 02/25/17 11:40 Dose: 1 amp Amlodipine Besylate (Norvasc -) 5 mg PO DAILY [facility] Last Admin: 02/25/17 11:09 Dose: 5 mg Aspirin (Asa -) 81 mg PO DAILY [facility] Last Admin: 02/25/17 11:08 Dose: 81 mg Atorvastatin Calcium (Lipitor -) 10 mg PO HS [facility] Last Admin: 02/24/17 21:43 Dose: 10 mg Fentanyl (Sublimaze Injection -) 25 mcg IVPUSH [id number] PRN PRN Reason: PAIN Stop: 02/27/17 16:55 Furosemide (Lasix -) 80 mg PO DAILY [facility] Last Admin: 02/25/17 11:09 Dose: 80 mg Heparin Sodium (Porcine) (Heparin -) 5,000 unit SQ TID [facility] Last Admin: 02/25/17 06:20 Dose: 5,000 unit Hydralazine HCl (Apresoline -) 100 mg PO TID [facility] Labetalol HCl (Normodyne -) 600 mg PO BID [facility] Last Admin: 02/25/17 11:08 Dose: 600 mg Tramadol HCl (Ultram -) 50 mg PO Q8H PRN PRN Reason: PAIN Vital Signs - 24 hr 02/24/17 02/24/17 02/24/17 15:00 16:44 17:00 Temperature 98.3 F 97.8 F Pulse Rate 67 83 75 Respiratory 18 18 20 Rate Blood Pressure 146/82 160/80 154/77 O2 Sat by Pulse 98 95 Oximetry (%) 02/24/17 02/24/17 02/24/17 17:15 17:30 17:48 Temperature 98.0 F Pulse Rate 68 65 76 Respiratory 20 16 16 Rate Blood Pressure 154/82 155/82 148/78 O2 Sat by Pulse 94 L 96 Oximetry (%) 02/24/17 02/24/17 02/25/17 18:28 21:00 02:28 Temperature 97.7 F 97.6 F 97.8 F Pulse Rate 67 73 69 Respiratory 20 18 18 Rate Blood Pressure 157/86 150/79 162/90 O2 Sat by Pulse 95 Oximetry (%) 02/25/17 02/25/17 02/25/17 06:00 07:20 07:30 Temperature 98.6 F Pulse Rate 94 H 71 70 Respiratory 18 18 18 Rate Blood Pressure 158/89 179/84 195/104 O2 Sat by Pulse Oximetry (%) 02/25/17 02/25/17 02/25/17 08:00 08:30 09:00 Temperature Pulse Rate 73 72 71 Respiratory 18 18 18 Rate Blood Pressure 158/108 176/106 163/86 O2 Sat by Pulse 93 L Oximetry (%) 02/25/17 02/25/17 02/25/17 09:30 10:00 10:30 Temperature Pulse Rate 78 72 67 Respiratory 18 18 18 Rate Blood Pressure 205/115 174/87 194/106 O2 Sat by Pulse Oximetry (%) 02/25/17 10:50 Temperature Pulse Rate 75 Respiratory 18 Rate Blood Pressure 173/84 O2 Sat by Pulse Oximetry (%) Intake & Output 02/23/17 02/24/17 02/25/17 02/26/17 07:59 07:59 07:59 07:59 Intake Total 650 1330 250 370 Output Total 1445 0 Balance -795 1330 250 370 Weight 296 lb 297 lb 297 lb 4 oz Nad, no jvd rrr nl s1, s2 2/6 sys murmur at apex bibasilar rales nl eff 1+ le edema. no c/c no jaundice, diaphoresis BMP 02/25/17 11:40 tele: sr, pvcs, echo 02/2017: nl lvef, mod lve, mild rve, nl rv fcn, mild lae, mild-mod tr Echo 07/2014: normal LV/RV function, mod concentric LVH, no sig valv abn Echo 03/2013: normal LV/RV function, mild to mod concentric LVH, no sig valv abn Stress MPI 03/2013: moderate anny-lateral scar and infero-lateral ischemia. enlarged LV a/p: 57 yo HTN, HPL,morbid obesity, CAD (ab stress - tx medically due to high risk for ATN) severe KIM, ESRD who presents with sob. sob, acute diastolic and possibly right heart failure exacerbation - may be exacerbated by volume overload from ESRD. - after lasix and now HD, starting to have less vol overload - cont lasix and HD per renal hyperkalemia -improved, now on HD CAD - trop negative. ekg without acute ischemic changes - cont asa, statin bb, htn - significant htn overnight. Increasing hydralazine to 100 mg tid. Monitor closely for need for further uptitration. kim - bipap esrd -now on HD
--- NOTE | 2017-02-25 13:52 | PN ---
Progress Note (short form) - Note Progress Note: PULMONARY States breathing continues to improve. No chest pain, minimal cough. Last Vital Signs Temp Pulse Resp BP Pulse Ox 98.6 F 75 18 173/84 93 L 02/25/17 06:00 02/25/17 10:50 02/25/17 10:50 02/25/17 10:50 02/25/17 09:00 Gen: NAD at rest Heart: RRR Lung: decreased breath sounds at the bases Abd: soft, nontender Ext: no edema CBC, BMP 02/24/17 06:00 02/25/17 11:40 Active Medications Acetaminophen (Tylenol -) 500 mg PO Q6H PRN PRN Reason: FEVER OR PAIN Albuterol/Ipratropium (Duoneb -) 1 amp NEB Q4H PRN PRN Reason: SHORTNESS OF BREATH Albuterol/Ipratropium (Duoneb -) 1 amp NEB QIDR [facility] Last Admin: 02/25/17 11:40 Dose: 1 amp Amlodipine Besylate (Norvasc -) 5 mg PO DAILY [facility] Last Admin: 02/25/17 11:09 Dose: 5 mg Aspirin (Asa -) 81 mg PO DAILY [facility] Last Admin: 02/25/17 11:08 Dose: 81 mg Atorvastatin Calcium (Lipitor -) 10 mg PO HS [facility] Last Admin: 02/24/17 21:43 Dose: 10 mg Fentanyl (Sublimaze Injection -) 25 mcg IVPUSH [id number] PRN PRN Reason: PAIN Stop: 02/27/17 16:55 Furosemide (Lasix -) 80 mg PO DAILY [facility] Last Admin: 02/25/17 11:09 Dose: 80 mg Heparin Sodium (Porcine) (Heparin -) 5,000 unit SQ TID [facility] Last Admin: 02/25/17 06:20 Dose: 5,000 unit Hydralazine HCl (Apresoline -) 100 mg PO TID [facility] Labetalol HCl (Normodyne -) 600 mg PO BID [facility] Last Admin: 02/25/17 11:08 Dose: 600 mg Tramadol HCl (Ultram -) 50 mg PO Q8H PRN PRN Reason: PAIN A/P Acute Hypoxic and Hypercapneic Respiratory Failure resolved COPD Acute on Chronic Diastolic Heart Failure Pulmonary HTN Morbid Obesity KIM ESRD on HD - continue lasix - HD per renal - inhaled bronchodilators - O2 as needed - BiPAP at night and PRN during day - DVT prophylaxis - outpt PFTs, PSG
[2017-02-25] MEDS: traMADol HCL 50 MG TABLET PO PRN ×2 (15:10→23:17)
--- NOTE | 2017-02-25 16:48 | PN ---
Progress Note, Physician History of Present Illness: Pt seen and examined at bedside. He is awake and alert. He tolerated HD. He feels that his breathing is improving. - Current Medication List Current Medications: Active Medications Acetaminophen (Tylenol -) 500 mg PO Q6H PRN PRN Reason: FEVER OR PAIN Albuterol/Ipratropium (Duoneb -) 1 amp NEB Q4H PRN PRN Reason: SHORTNESS OF BREATH Albuterol/Ipratropium (Duoneb -) 1 amp NEB QIDR [facility] Last Admin: 02/25/17 11:40 Dose: 1 amp Amlodipine Besylate (Norvasc -) 5 mg PO DAILY [facility] Last Admin: 02/25/17 11:09 Dose: 5 mg Aspirin (Asa -) 81 mg PO DAILY [facility] Last Admin: 02/25/17 11:08 Dose: 81 mg Atorvastatin Calcium (Lipitor -) 10 mg PO HS [facility] Last Admin: 02/24/17 21:43 Dose: 10 mg Fentanyl (Sublimaze Injection -) 25 mcg IVPUSH [id number] PRN PRN Reason: PAIN Stop: 02/27/17 16:55 Furosemide (Lasix -) 80 mg PO DAILY [facility] Last Admin: 02/25/17 11:09 Dose: 80 mg Heparin Sodium (Porcine) (Heparin -) 5,000 unit SQ TID [facility] Last Admin: 02/25/17 15:09 Dose: 5,000 unit Hydralazine HCl (Apresoline -) 100 mg PO TID [facility] Last Admin: 02/25/17 15:09 Dose: 100 mg Labetalol HCl (Normodyne -) 600 mg PO BID [facility] Last Admin: 02/25/17 11:08 Dose: 600 mg Tramadol HCl (Ultram -) 50 mg PO Q8H PRN PRN Reason: PAIN Last Admin: 02/25/17 15:10 Dose: 50 mg - Objective Vital Signs: Vital Signs Temperature 98.1 F 02/25/17 14:25 Pulse Rate 71 02/25/17 14:25 Respiratory Rate 16 02/25/17 14:25 Blood Pressure 136/75 02/25/17 14:25 O2 Sat by Pulse Oximetry (%) 93 L 02/25/17 09:00 Constitutional: Yes: Calm Eyes: Yes: Conjunctiva Clear HENT: Yes: Atraumatic Neck: Yes: Supple Cardiovascular: Yes: S1, S2 Respiratory: Yes: On Nasal O2 Gastrointestinal: Yes: Soft, Abdomen, Obese Genitourinary: Yes: WNL Musculoskeletal: Yes: WNL Edema: Yes Edema: LLE: 1+, RLE: 1+ Neurological: Yes: Oriented Psychiatric: Yes: Oriented Labs: CBC, BMP 02/24/17 06:00 02/25/17 11:40 INR, PTT INR 1.08 (0.82-1.09) 02/21/17 06:20 Problem List - Problems (1) CKD (chronic kidney disease) Code(s): N18.9 - CHRONIC KIDNEY DISEASE, UNSPECIFIED (2) HTN (hypertension) Code(s): I10 - ESSENTIAL (PRIMARY) HYPERTENSION Qualifiers: Hypertension type: essential hypertension Qualified Code(s): I10 - Essential (primary) hypertension (3) CHF (congestive heart failure) Code(s): I50.9 - HEART FAILURE, UNSPECIFIED Qualifiers: Congestive heart failure type: diastolic Congestive heart failure chronicity: acute on chronic Qualified Code(s): I50.33 - Acute on chronic diastolic (congestive) heart failure (4) Hyperkalemia Code(s): E87.5 - HYPERKALEMIA Assessment/Plan Current Medications Generic Name Dose Route Start Last Admin Trade Name Freq PRN Reason Stop Dose Admin Acetaminophen 500 mg 02/25/17 11:24 Tylenol - PO Q6H PRN FEVER OR PAIN Albuterol/Ipratropium 1 amp 02/24/17 17:35 Duoneb - NEB Q4H PRN SHORTNESS OF BREATH Albuterol/Ipratropium 1 amp 02/24/17 18:00 02/25/17 11:40 Duoneb - NEB 1 amp QIDR [facility] Administration Amlodipine Besylate 5 mg 02/25/17 10:00 02/25/17 11:09 Norvasc - PO 5 mg DAILY [facility] Administration Aspirin 81 mg 02/25/17 10:00 02/25/17 11:08 Asa - PO 81 mg DAILY [facility] Administration Atorvastatin Calcium 10 mg 02/24/17 22:00 02/24/17 21:43 Lipitor - PO 10 mg HS [facility] Administration Fentanyl 25 mcg 02/24/17 17:35 Sublimaze Injection - IVPUSH 02/27/17 16:55 [id number] PRN PAIN Furosemide 80 mg 02/25/17 10:00 02/25/17 11:09 Lasix - PO 80 mg DAILY [facility] Administration Heparin Sodium (Porcine) 5,000 unit 02/24/17 22:00 02/25/17 15:09 Heparin - SQ 5,000 unit TID [facility] Administration Hydralazine HCl 100 mg 02/25/17 14:00 02/25/17 15:09 Apresoline - PO 100 mg TID [facility] Administration Labetalol HCl 600 mg 02/24/17 22:00 02/25/17 11:08 Normodyne - PO 600 mg BID [facility] Administration Tramadol HCl 50 mg 02/25/17 11:24 02/25/17 15:10 Ultram - PO 50 mg Q8H PRN Administration PAIN Laboratory Tests 02/25/17 02/25/17 06:20 06:20 Iron Pending Ferritin 47.822 Impression 1. ESRD on HD 2. CHF 3. HTN 4. obesity 5. hyperlipidemia 6. hyperkalemia Plan - pt tolerated HD - fistula with thrill and bruit - HD set up as outpt - will follow while in hospital - follow up iron studies - cont with PO lasix Dr Mancia
[2017-02-25] MEDS: ATORVASTATIN CA 10 MG TABLET (FP) PO SCH (21:09)
[2017-02-26] MEDS: hydrALAZINE HCL 50 MG TABLET (FP) PO SCH ×3 (05:32→21:01)
[2017-02-26] MEDS: HEPARIN NA (PORCINE) 5,000 UNITS/ML 1ML VIAL SQ SCH ×3 (05:32→21:01)
[2017-02-26] MEDS: ALBUTEROL SO4 2.5/IPRATROPIUM 0.5 INH SOL 3 ML VIAL.NEB. NEB SCH ×3 (07:01→17:20)
[2017-02-26] MEDS: ASPIRIN 81 MG CHEWABLE TABLETS PO SCH (09:11)
[2017-02-26] MEDS: LABETALOL HCL 200 MG TABLET (FP) PO SCH ×2 (09:13→21:01)
[2017-02-26] MEDS: FUROSEMIDE 40 MG TABLET (FP) PO SCH (09:13)
[2017-02-26] MEDS: amLODIPine BESYLATE 5 MG TABLET (FP) PO SCH (09:13)
[2017-02-26] MEDS: traMADol HCL 50 MG TABLET PO PRN (09:14)
[2017-02-26] MEDS ORDERED: amLODIPine BESYLATE 10 MG TABLET (FP) PO SCH (11:56)
--- NOTE | 2017-02-26 11:56 | PN ---
Progress Note (short form) - Note Progress Note: Pt seen/ examined/ chart reviewed sitting in chair no complains feels better bp still runs high Vital Signs Temp 98.9 F 02/26/17 10:00 Pulse 75 02/26/17 10:00 Resp 20 02/26/17 10:00 BP 175/94 02/26/17 10:00 Pulse Ox 97 02/26/17 09:00 Intake & Output 02/25/17 02/25/17 02/26/17 11:59 23:59 11:59 Intake Total 570 410 Balance 570 410 Weight 297 lb 4 oz 296 lb 3.2 oz Intake: Oral 570 410 Other: Voiding Method Toilet Toilet Toilet # Unmeasured Voids Reynolds 2 2 Bowel Movement Yes No Weight Measurement Method Standing Scale Standing Scale Active Medications Acetaminophen (Tylenol -) 500 mg PO Q6H PRN PRN Reason: FEVER OR PAIN Albuterol/Ipratropium (Duoneb -) 1 amp NEB Q4H PRN PRN Reason: SHORTNESS OF BREATH Albuterol/Ipratropium (Duoneb -) 1 amp NEB QIDR [facility] Last Admin: 02/26/17 07:01 Dose: 1 amp Aspirin (Asa -) 81 mg PO DAILY [facility] Last Admin: 02/26/17 09:11 Dose: 81 mg Atorvastatin Calcium (Lipitor -) 10 mg PO HS [facility] Last Admin: 02/25/17 21:09 Dose: 10 mg Fentanyl (Sublimaze Injection -) 25 mcg IVPUSH [id number] PRN PRN Reason: PAIN Stop: 02/27/17 16:55 Furosemide (Lasix -) 80 mg PO DAILY [facility] Last Admin: 02/26/17 09:13 Dose: 80 mg Heparin Sodium (Porcine) (Heparin -) 5,000 unit SQ TID [facility] Last Admin: 02/26/17 05:32 Dose: 5,000 unit Hydralazine HCl (Apresoline -) 100 mg PO TID [facility] Last Admin: 02/26/17 05:32 Dose: 100 mg Labetalol HCl (Normodyne -) 600 mg PO BID [facility] Last Admin: 02/26/17 09:13 Dose: 600 mg Tramadol HCl (Ultram -) 50 mg PO Q8H PRN PRN Reason: PAIN Last Admin: 02/26/17 09:14 Dose: 50 mg CBC, BMP 02/24/17 06:00 02/25/17 11:40 PHYSICAL EXAMINATION: Constitutional: Yes: No Distress/ comfortable Cardiovascular: Yes: Regular Rate and Rhythm Chest: Permacath in place-- bruie + Respiratory: Yes: Diminished at bases. Gastrointestinal: Yes: Normal Bowel Sounds, Soft, Abdomen, Obese. No: Distention, Tenderness Edema: LLE: 1+, RLE: 1+ LUE-- Avf in place- Bruie + Problem List - Problems (1) Acute on chronic respiratory failure with hypoxia and hypercapnia Code(s): J96.21 - ACUTE AND CHRONIC RESPIRATORY FAILURE WITH HYPOXIA J96.22 - ACUTE AND CHRONIC RESPIRATORY FAILURE WITH HYPERCAPNIA (2) CHF (congestive heart failure) Code(s): I50.9 - HEART FAILURE, UNSPECIFIED Qualifiers: Congestive heart failure type: diastolic Congestive heart failure chronicity: acute on chronic Qualified Code(s): I50.33 - Acute on chronic diastolic (congestive) heart failure (3) CKD (chronic kidney disease) Code(s): N18.9 - CHRONIC KIDNEY DISEASE, UNSPECIFIED (4) HTN (hypertension) Code(s): I10 - ESSENTIAL (PRIMARY) HYPERTENSION Qualifiers: Hypertension type: essential hypertension Qualified Code(s): I10 - Essential (primary) hypertension (5) Hyperkalemia Code(s): E87.5 - HYPERKALEMIA (6) Sleep apnea Code(s): G47.30 - SLEEP APNEA, UNSPECIFIED Qualifiers: Sleep apnea type: obstructive Qualified Code(s): G47.33 - Obstructive sleep apnea (adult) (pediatric) (7) Acute on chronic renal failure Code(s): N17.9 - ACUTE KIDNEY FAILURE, UNSPECIFIED N18.9 - CHRONIC KIDNEY DISEASE, UNSPECIFIED ASSESSMENT & PLAN: -s/p AVF placement - overall better - Continue present care. - Medications reviewed. - Monitor bp - increase norvasc -- out pt dialysis scheduled for monday - Anticipate d/c tomorrow after dialysis - pt in agreement
--- NOTE | 2017-02-26 13:41 | PN ---
Progress Note (short form) - Note Progress Note: PULMONARY Denies shortness of breath or chest pain. No cough or wheezing. Last Vital Signs Temp Pulse Resp BP Pulse Ox 98.9 F 75 20 175/94 97 02/26/17 10:00 02/26/17 10:00 02/26/17 10:00 02/26/17 10:00 02/26/17 09:00 Gen: NAD at rest Heart: RRR Lung: decreased breath sounds at the bases Abd: soft, nontender Ext: no edema CBC, BMP 02/24/17 06:00 02/25/17 11:40 Active Medications Acetaminophen (Tylenol -) 500 mg PO Q6H PRN PRN Reason: FEVER OR PAIN Albuterol/Ipratropium (Duoneb -) 1 amp NEB Q4H PRN PRN Reason: SHORTNESS OF BREATH Albuterol/Ipratropium (Duoneb -) 1 amp NEB QIDR [facility] Last Admin: 02/26/17 07:01 Dose: 1 amp Amlodipine Besylate (Norvasc -) 10 mg PO DAILY [facility] Aspirin (Asa -) 81 mg PO DAILY [facility] Last Admin: 02/26/17 09:11 Dose: 81 mg Atorvastatin Calcium (Lipitor -) 10 mg PO HS [facility] Last Admin: 02/25/17 21:09 Dose: 10 mg Fentanyl (Sublimaze Injection -) 25 mcg IVPUSH [id number] PRN PRN Reason: PAIN Stop: 02/27/17 16:55 Furosemide (Lasix -) 80 mg PO DAILY [facility] Last Admin: 02/26/17 09:13 Dose: 80 mg Heparin Sodium (Porcine) (Heparin -) 5,000 unit SQ TID [facility] Last Admin: 02/26/17 05:32 Dose: 5,000 unit Hydralazine HCl (Apresoline -) 100 mg PO TID [facility] Last Admin: 02/26/17 05:32 Dose: 100 mg Labetalol HCl (Normodyne -) 600 mg PO BID [facility] Last Admin: 02/26/17 09:13 Dose: 600 mg Tramadol HCl (Ultram -) 50 mg PO Q8H PRN PRN Reason: PAIN Last Admin: 02/26/17 09:14 Dose: 50 mg A/P Acute Hypoxic and Hypercapneic Respiratory Failure resolved COPD Acute on Chronic Diastolic Heart Failure Pulmonary HTN Morbid Obesity KIM ESRD on HD - continue lasix - HD per renal - inhaled bronchodilators - O2 as needed - BiPAP at night and PRN during day - DVT prophylaxis - outpt PFTs, PSG
--- NOTE | 2017-02-26 14:33 | PN ---
Progress Note, Physician History of Present Illness: Pt seen and examined at bedside. He is awake and alert. He says he feels better after starting dialysis. - Current Medication List Current Medications: Active Medications Acetaminophen (Tylenol -) 500 mg PO Q6H PRN PRN Reason: FEVER OR PAIN Albuterol/Ipratropium (Duoneb -) 1 amp NEB Q4H PRN PRN Reason: SHORTNESS OF BREATH Albuterol/Ipratropium (Duoneb -) 1 amp NEB QIDR [facility] Last Admin: 02/26/17 11:40 Dose: 1 amp Amlodipine Besylate (Norvasc -) 10 mg PO DAILY [facility] Aspirin (Asa -) 81 mg PO DAILY [facility] Last Admin: 02/26/17 09:11 Dose: 81 mg Atorvastatin Calcium (Lipitor -) 10 mg PO HS [facility] Last Admin: 02/25/17 21:09 Dose: 10 mg Fentanyl (Sublimaze Injection -) 25 mcg IVPUSH [id number] PRN PRN Reason: PAIN Stop: 02/27/17 16:55 Furosemide (Lasix -) 80 mg PO DAILY [facility] Last Admin: 02/26/17 09:13 Dose: 80 mg Heparin Sodium (Porcine) (Heparin -) 5,000 unit SQ TID [facility] Last Admin: 02/26/17 05:32 Dose: 5,000 unit Hydralazine HCl (Apresoline -) 100 mg PO TID [facility] Last Admin: 02/26/17 05:32 Dose: 100 mg Labetalol HCl (Normodyne -) 600 mg PO BID [facility] Last Admin: 02/26/17 09:13 Dose: 600 mg Tramadol HCl (Ultram -) 50 mg PO Q8H PRN PRN Reason: PAIN Last Admin: 02/26/17 09:14 Dose: 50 mg - Objective Vital Signs: Vital Signs Temperature 98.9 F 02/26/17 10:00 Pulse Rate 75 02/26/17 10:00 Respiratory Rate 20 02/26/17 10:00 Blood Pressure 175/94 02/26/17 10:00 O2 Sat by Pulse Oximetry (%) 94 L 02/26/17 11:40 Constitutional: Yes: Calm Eyes: Yes: Conjunctiva Clear HENT: Yes: Atraumatic Neck: Yes: Supple Cardiovascular: Yes: S1, S2 Gastrointestinal: Yes: Soft Genitourinary: Yes: WNL Musculoskeletal: Yes: WNL Extremities: Yes: Other (left arm fistula with thrill and bruit) Edema: Yes Edema: LLE: 1+, RLE: 1+ Neurological: Yes: Oriented Psychiatric: Yes: Oriented Labs: CBC, BMP 02/24/17 06:00 02/25/17 11:40 INR, PTT INR 1.08 (0.82-1.09) 02/21/17 06:20 Problem List - Problems (1) CKD (chronic kidney disease) Code(s): N18.9 - CHRONIC KIDNEY DISEASE, UNSPECIFIED (2) HTN (hypertension) Code(s): I10 - ESSENTIAL (PRIMARY) HYPERTENSION Qualifiers: Hypertension type: essential hypertension Qualified Code(s): I10 - Essential (primary) hypertension (3) CHF (congestive heart failure) Code(s): I50.9 - HEART FAILURE, UNSPECIFIED Qualifiers: Congestive heart failure type: diastolic Congestive heart failure chronicity: acute on chronic Qualified Code(s): I50.33 - Acute on chronic diastolic (congestive) heart failure (4) Hyperkalemia Code(s): E87.5 - HYPERKALEMIA Assessment/Plan Current Medications Generic Name Dose Route Start Last Admin Trade Name Freq PRN Reason Stop Dose Admin Acetaminophen 500 mg 02/25/17 11:24 Tylenol - PO Q6H PRN FEVER OR PAIN Albuterol/Ipratropium 1 amp 02/24/17 17:35 Duoneb - NEB Q4H PRN SHORTNESS OF BREATH Albuterol/Ipratropium 1 amp 02/24/17 18:00 02/26/17 11:40 Duoneb - NEB 1 amp QIDR [facility] Administration Amlodipine Besylate 10 mg 02/26/17 11:56 Norvasc - PO DAILY [facility] Aspirin 81 mg 02/25/17 10:00 02/26/17 09:11 Asa - PO 81 mg DAILY [facility] Administration Atorvastatin Calcium 10 mg 02/24/17 22:00 02/25/17 21:09 Lipitor - PO 10 mg HS [facility] Administration Fentanyl 25 mcg 02/24/17 17:35 Sublimaze Injection - IVPUSH 02/27/17 16:55 [id number] PRN PAIN Furosemide 80 mg 02/25/17 10:00 02/26/17 09:13 Lasix - PO 80 mg DAILY [facility] Administration Heparin Sodium (Porcine) 5,000 unit 02/24/17 22:00 02/26/17 05:32 Heparin - SQ 5,000 unit TID [facility] Administration Hydralazine HCl 100 mg 02/25/17 14:00 02/26/17 05:32 Apresoline - PO 100 mg TID [facility] Administration Labetalol HCl 600 mg 02/24/17 22:00 02/26/17 09:13 Normodyne - PO 600 mg BID [facility] Administration Tramadol HCl 50 mg 02/25/17 11:24 02/26/17 09:14 Ultram - PO 50 mg Q8H PRN Administration PAIN Laboratory Tests 02/21/17 06:20 MARIELLE Screen Positive H Impression 1. ESRD on HD 2. CHF 3. HTN 4. obesity 5. hyperlipidemia 6. hyperkalemia 7. positive marielle Plan - will arrange for HD in am - pt burak need rheum eval for positive marielle - he will also need a ckd workup as he has not gotten one - fistula with thrill and bruit - HD set up as outpt - cont with PO lasix Dr Mancia
--- NOTE | 2017-02-26 18:13 | PN ---
Progress Note (short form) - Note Progress Note: CC: ESRD S: no cp sob palps dizzy. o: Current Medications Acetaminophen (Tylenol -) 500 mg PO Q6H PRN PRN Reason: FEVER OR PAIN Albuterol/Ipratropium (Duoneb -) 1 amp NEB Q4H PRN PRN Reason: SHORTNESS OF BREATH Albuterol/Ipratropium (Duoneb -) 1 amp NEB QIDR [facility] Last Admin: 02/26/17 17:20 Dose: 1 amp Amlodipine Besylate (Norvasc -) 10 mg PO DAILY [facility] Aspirin (Asa -) 81 mg PO DAILY [facility] Last Admin: 02/26/17 09:11 Dose: 81 mg Atorvastatin Calcium (Lipitor -) 10 mg PO HS [facility] Last Admin: 02/25/17 21:09 Dose: 10 mg Epoetin Lee (Procrit -) 3,000 unit IVPUSH ONCE ONE Stop: 02/27/17 14:37 Fentanyl (Sublimaze Injection -) 25 mcg IVPUSH [id number] PRN PRN Reason: PAIN Stop: 02/27/17 16:55 Furosemide (Lasix -) 80 mg PO DAILY [facility] Last Admin: 02/26/17 09:13 Dose: 80 mg Heparin Sodium (Porcine) (Heparin -) 5,000 unit SQ TID [facility] Last Admin: 02/26/17 15:03 Dose: 5,000 unit Hydralazine HCl (Apresoline -) 100 mg PO TID [facility] Last Admin: 02/26/17 15:03 Dose: 100 mg Labetalol HCl (Normodyne -) 600 mg PO BID [facility] Last Admin: 02/26/17 09:13 Dose: 600 mg Tramadol HCl (Ultram -) 50 mg PO Q8H PRN PRN Reason: PAIN Last Admin: 02/26/17 09:14 Dose: 50 mg Vital Signs - 24 hr 02/25/17 02/25/17 02/25/17 21:00 23:00 23:54 Temperature 98.2 F Pulse Rate 76 Respiratory 20 Rate Blood Pressure 157/64 O2 Sat by Pulse 98 98 Oximetry (%) 02/26/17 02/26/17 02/26/17 02:00 06:00 09:00 Temperature 98.5 F 98.4 F Pulse Rate 70 71 Respiratory 20 20 20 Rate Blood Pressure 176/85 171/88 O2 Sat by Pulse 97 Oximetry (%) 02/26/17 02/26/17 10:00 11:40 Temperature 98.9 F Pulse Rate 75 Respiratory 20 Rate Blood Pressure 175/94 O2 Sat by Pulse 94 L Oximetry (%) Intake & Output 02/24/17 02/25/17 02/26/17 02/27/17 07:59 07:59 07:59 07:59 Intake Total 1330 250 780 450 Output Total 0 Balance 1330 250 780 450 Weight 297 lb 297 lb 4 oz 296 lb 3.2 oz Nad, no jvd rrr nl s1, s2 2/6 sys murmur at apex bibasilar rales nl eff 1+ le edema. no c/c no jaundice, diaphoresis no CBC, BMP tele: sr, pvcs, echo 02/2017: nl lvef, mod lve, mild rve, nl rv fcn, mild lae, mild-mod tr Echo 07/2014: normal LV/RV function, mod concentric LVH, no sig valv abn Echo 03/2013: normal LV/RV function, mild to mod concentric LVH, no sig valv abn Stress MPI 03/2013: moderate anny-lateral scar and infero-lateral ischemia. enlarged LV a/p: 57 yo HTN, HPL,morbid obesity, CAD (ab stress - tx medically due to high risk for ATN) severe KIM, ESRD who presents with sob. sob, acute diastolic and possibly right heart failure exacerbation - may be exacerbated by volume overload from ESRD. - after lasix and now HD, starting to have less vol overload - cont lasix and HD per renal hyperkalemia -improved, now on HD CAD - trop negative. ekg without acute ischemic changes - cont asa, statin bb, htn - Ongoing uptitration of regimen. kim - bipap esrd -now on HD
[2017-02-26] MEDS: ATORVASTATIN CA 10 MG TABLET (FP) PO SCH (21:01)
[2017-02-27] MEDS: HEPARIN NA (PORCINE) 5,000 UNITS/ML 1ML VIAL SQ SCH (05:47)
[2017-02-27] MEDS: hydrALAZINE HCL 50 MG TABLET (FP) PO SCH (05:47)
[2017-02-27] MEDS: ALBUTEROL SO4 2.5/IPRATROPIUM 0.5 INH SOL 3 ML VIAL.NEB. NEB SCH ×3 (06:02→11:15)
--- NOTE | 2017-02-27 08:26 | DS ---
Physical Examination Vital Signs: Vital Signs Temperature 97.6 F 02/27/17 06:00 Pulse Rate 75 02/27/17 08:00 Respiratory Rate 18 02/27/17 08:00 Blood Pressure 183/97 02/27/17 08:00 O2 Sat by Pulse Oximetry (%) 94 L 02/26/17 11:40 Labs: CBC, BMP 02/24/17 06:00 02/25/17 11:40 <Cecilia Damon - Last Filed: 02/27/17 08:25> Vital Signs: Vital Signs Temperature 97.6 F 02/27/17 06:00 Pulse Rate 78 02/27/17 09:00 Respiratory Rate 18 02/27/17 09:00 Blood Pressure 169/96 02/27/17 09:00 O2 Sat by Pulse Oximetry (%) 94 L 02/26/17 11:40 Findings/Remarks: Patient being dialyzed. Patient is comfortable. Overall feels much better. No complaints today. Constitutional: Yes: No Distress, Calm Eyes: Yes: Conjunctiva Clear Neck: Yes: Supple Cardiovascular: Yes: Regular Rate and Rhythm Respiratory: Yes: Diminished (at bases) Gastrointestinal: Yes: Soft Edema: No Neurological: Yes: Alert Labs: CBC, BMP 02/24/17 06:00 02/25/17 11:40 <Hanane Del Castillo - Last Filed: 02/27/17 10:33> Discharge Summary Reason For Visit: CHEST PAIN, SOB Current Active Problems Acute on chronic renal failure (Acute) Acute on chronic respiratory failure with hypoxia and hypercapnia (Acute) CHF (congestive heart failure) (Acute) CKD (chronic kidney disease) (Acute) Exacerbation of chronic obstructive pulmonary disease associated with exposure to volcanic air pollution (Acute) HTN (hypertension) (Acute) Hyperkalemia (Acute) Sleep apnea (Acute) - Home Medications Comprehensive Discharge Medication List: Ambulatory Orders Aspirin [ASA -] 81 mg PO DAILY 02/20/17 Enalapril Maleate [Vasotec] 20 mg PO DAILY 02/20/17 Furosemide [Lasix] 80 mg PO DAILY 02/20/17 Hydralazine HCl 100 mg PO BID 02/20/17 Simvastatin [Zocor -] 20 mg PO HS 02/20/17 Acetaminophen [Tylenol .Extra-Strength -] 500 mg PO Q6H PRN #0 tablet 02/27/17 Albuterol 2.5/Ipratropium 0.5 [Duoneb -] 1 amp NEB Q4H PRN #0 amp 02/27/17 Amlodipine Besylate [Norvasc -] 10 mg PO DAILY #30 tablet 02/27/17 Labetalol HCl [Normodyne -] 600 mg PO BID #60 cap.sa MDD 2 02/27/17 <Cecilia Damon - Last Filed: 02/27/17 08:25> Current Active Problems Acute on chronic renal failure (Acute) Acute on chronic respiratory failure with hypoxia and hypercapnia (Acute) CHF (congestive heart failure) (Acute) CKD (chronic kidney disease) (Acute) ESRD (end stage renal disease) on dialysis (Acute) Exacerbation of chronic obstructive pulmonary disease associated with exposure to volcanic air pollution (Acute) HTN (hypertension) (Acute) Hyperkalemia (Acute) Sleep apnea (Acute) Hospital Course: 57 yrs old male with severe KIM, obesity, HTN , hyperlipidemia, CAD and CKD comes to ER with worsening SOB. He has been having progressive SOB for many weeks. Also c/o pressure sensation to the chest , no radiation. Patient found to be in acute on chronic renal failure. Patient has permacath placed as well as LUE AV fistula created. Started on HD. Will d/c home today. Outpatient HD on Monday arranged. Patient to follow up with PMD and renal as outpatient. Meds reconciled and prescribed as needed. Discussed with nursing staff also. Documentation prepared by Hanane Del Castillo, acting as a senior medical writer for Cecilia Damon MD. - Home Medications Comprehensive Discharge Medication List: Ambulatory Orders Aspirin [ASA -] 81 mg PO DAILY 02/20/17 Enalapril Maleate [Vasotec] 20 mg PO DAILY 02/20/17 Furosemide [Lasix] 80 mg PO DAILY 02/20/17 Hydralazine HCl 100 mg PO BID 02/20/17 Simvastatin [Zocor -] 20 mg PO HS 02/20/17 Acetaminophen [Tylenol .Extra-Strength -] 500 mg PO Q6H PRN #0 tablet 02/27/17 Albuterol 2.5/Ipratropium 0.5 [Duoneb -] 1 amp NEB Q4H PRN #0 amp 02/27/17 Amlodipine Besylate [Norvasc -] 10 mg PO DAILY #30 tablet 02/27/17 Labetalol HCl [Normodyne -] 600 mg PO BID #60 cap.sa MDD 2 02/27/17 <Hanane Del Castillo - Last Filed: 02/27/17 10:33> - Instructions Referrals: Ed Boyer MD [Primary Care Provider] - Cecilia Damon MD [Staff Physician] -
--- NOTE | 2017-02-27 08:51 | PN ---
Progress Note (short form) - Note Progress Note: Alert. Doing well. Currently gettting HD at bedside. No complaints of CP or SOB. AVSS. Afeb Gen: nad Chest: PC intact. No hematoma. LUE: avf with palpable thrill. distal pulse intact. hand warm Problem List - Problems (1) ESRD (end stage renal disease) on dialysis Assessment/Plan: POD #5 s/p Permacath POD #3 s/p LUE AVF HD per schedule outlined by Renal No further surgical intervention Reconsult PRN On behalf of Dr. Hernandez, thank you for the opportunity to participate in your patient's care. Code(s): N18.6 - END STAGE RENAL DISEASE Z99.2 - DEPENDENCE ON RENAL DIALYSIS
[2017-02-27 11:37] VITALS: TEMP 98.1
[2017-02-27] MEDS: FUROSEMIDE 40 MG TABLET (FP) PO SCH (11:44)
[2017-02-27] MEDS: LABETALOL HCL 200 MG TABLET (FP) PO SCH (11:44)
[2017-02-27] MEDS: ASPIRIN 81 MG CHEWABLE TABLETS PO SCH (11:45)
[2017-02-27] MEDS ORDERED: EPOETIN ALFA 3,000 UNIT/1 ML ML IVPUSH ONE (12:00)
[2017-02-27 12:09] VITALS: BP 170/89; PULSE 94
--- NOTE | 2017-02-27 12:15 | PN ---
Progress Note, Physician History of Present Illness: Pt seen and examined at bedside. He is awake and alert. He tolerated HD today. - Current Medication List Current Medications: Active Medications Acetaminophen (Tylenol -) 500 mg PO Q6H PRN PRN Reason: FEVER OR PAIN Albuterol/Ipratropium (Duoneb -) 1 amp NEB Q4H PRN PRN Reason: SHORTNESS OF BREATH Albuterol/Ipratropium (Duoneb -) 1 amp NEB QIDR [facility] Last Admin: 02/27/17 06:02 Dose: 1 amp Amlodipine Besylate (Norvasc -) 10 mg PO DAILY [facility] Last Admin: 02/27/17 11:45 Dose: 10 mg Aspirin (Asa -) 81 mg PO DAILY [facility] Last Admin: 02/27/17 11:45 Dose: 81 mg Atorvastatin Calcium (Lipitor -) 10 mg PO HS [facility] Last Admin: 02/26/17 21:01 Dose: 10 mg Fentanyl (Sublimaze Injection -) 25 mcg IVPUSH [id number] PRN PRN Reason: PAIN Stop: 02/27/17 16:55 Furosemide (Lasix -) 80 mg PO DAILY [facility] Last Admin: 02/27/17 11:44 Dose: 80 mg Heparin Sodium (Porcine) (Heparin -) 5,000 unit SQ TID [facility] Last Admin: 02/27/17 05:47 Dose: 5,000 unit Hydralazine HCl (Apresoline -) 100 mg PO TID [facility] Last Admin: 02/27/17 05:47 Dose: 100 mg Labetalol HCl (Normodyne -) 600 mg PO BID [facility] Last Admin: 02/27/17 11:44 Dose: 600 mg Tramadol HCl (Ultram -) 50 mg PO Q8H PRN PRN Reason: PAIN Last Admin: 02/26/17 09:14 Dose: 50 mg - Objective Vital Signs: Vital Signs Temperature 98.1 F 02/27/17 10:00 Pulse Rate 94 H 02/27/17 10:40 Respiratory Rate 18 02/27/17 10:40 Blood Pressure 170/89 02/27/17 10:40 O2 Sat by Pulse Oximetry (%) 97 02/27/17 09:00 Constitutional: Yes: Calm Eyes: Yes: Conjunctiva Clear HENT: Yes: Atraumatic Cardiovascular: Yes: S1, S2 Respiratory: Yes: CTA Bilaterally Gastrointestinal: Yes: Soft, Abdomen, Obese Genitourinary: Yes: WNL Musculoskeletal: Yes: WNL Edema: Yes Edema: LLE: 1+, RLE: 1+ Neurological: Yes: Oriented Psychiatric: Yes: Oriented Labs: CBC, BMP 02/24/17 06:00 02/25/17 11:40 INR, PTT INR 1.08 (0.82-1.09) 02/21/17 06:20 Problem List - Problems (1) CKD (chronic kidney disease) Code(s): N18.9 - CHRONIC KIDNEY DISEASE, UNSPECIFIED (2) HTN (hypertension) Code(s): I10 - ESSENTIAL (PRIMARY) HYPERTENSION Qualifiers: Hypertension type: essential hypertension Qualified Code(s): I10 - Essential (primary) hypertension (3) CHF (congestive heart failure) Code(s): I50.9 - HEART FAILURE, UNSPECIFIED Qualifiers: Congestive heart failure type: diastolic Congestive heart failure chronicity: acute on chronic Qualified Code(s): I50.33 - Acute on chronic diastolic (congestive) heart failure (4) Hyperkalemia Code(s): E87.5 - HYPERKALEMIA Assessment/Plan Current Medications Generic Name Dose Route Start Last Admin Trade Name Freq PRN Reason Stop Dose Admin Acetaminophen 500 mg 02/25/17 11:24 Tylenol - PO Q6H PRN FEVER OR PAIN Albuterol/Ipratropium 1 amp 02/24/17 17:35 Duoneb - NEB Q4H PRN SHORTNESS OF BREATH Albuterol/Ipratropium 1 amp 02/24/17 18:00 02/27/17 06:02 Duoneb - NEB 1 amp QIDR MEME Administration Amlodipine Besylate 10 mg 02/26/17 11:56 02/27/17 11:45 Norvasc - PO 10 mg DAILY MEME Administration Aspirin 81 mg 02/25/17 10:00 02/27/17 11:45 Asa - PO 81 mg DAILY MEME Administration Atorvastatin Calcium 10 mg 02/24/17 22:00 02/26/17 21:01 Lipitor - PO 10 mg HS MEME Administration Fentanyl 25 mcg 02/24/17 17:35 Sublimaze Injection - IVPUSH 02/27/17 16:55 [id number] PRN PAIN Furosemide 80 mg 02/25/17 10:00 02/27/17 11:44 Lasix - PO 80 mg DAILY MEME Administration Heparin Sodium (Porcine) 5,000 unit 02/24/17 22:00 02/27/17 05:47 Heparin - SQ 5,000 unit TID MEME Administration Hydralazine HCl 100 mg 02/25/17 14:00 02/27/17 05:47 Apresoline - PO 100 mg TID MEME Administration Labetalol HCl 600 mg 02/24/17 22:00 02/27/17 11:44 Normodyne - PO 600 mg BID MEME Administration Tramadol HCl 50 mg 02/25/17 11:24 02/26/17 09:14 Ultram - PO 50 mg Q8H PRN Administration PAIN Impression 1. ESRD on HD 2. CHF 3. HTN 4. obesity 5. hyperlipidemia 6. hyperkalemia 7. positive marielle Plan - pt tolerated HD - he has HD set up on Monday at [facility] - will need ckd workup, will send bloodwork out as outpt - will see in office - cont with lasix as he does make urine and it will help with volume - fistula with thrill and bruit Dr Mancia
== END 2017-02-27 14:38 | disposition home or self-care (01) | DRG 447 ==
LOC: JER 10:13 → JERBED 13:35 → J4S 02-22 00:56
PROVIDERS: ADMIT Internal Medicine; ATTEND Internal Medicine
PROC: 5A09557 Assistance with Respiratory Ventilation, Greater than 96 Consecutive Hours, Continuous Positive Airway Pressure (ICD-10-PCS; 2017-02-20)
PROC: 02H633Z Insertion of Infusion Device into Right Atrium, Percutaneous Approach (ICD-10-PCS; 2017-02-22)
PROC: B214YZZ Fluoroscopy of Right Heart using Other Contrast (ICD-10-PCS; 2017-02-22)
PROC: 031C0ZF Bypass Left Radial Artery to Lower Arm Vein, Open Approach (ICD-10-PCS; principal; 2017-02-24 15:30)
PROC: 5A1D60Z (ICD-10-PCS; 2017-02-26)
DX: N17.9 Acute kidney failure, unspecified (principal); J96.21 Acute and chronic respiratory failure with hypoxia; J96.22 Acute and chronic respiratory failure with hypercapnia; J44.1 Chronic obstructive pulmonary disease with (acute) exacerbation; E87.5 Hyperkalemia; J96.01 Acute respiratory failure with hypoxia; J96.02 Acute respiratory failure with hypercapnia; E66.01 Morbid (severe) obesity due to excess calories; Z68.41 Body mass index [BMI] 40.0-44.9, adult; G47.33 Obstructive sleep apnea (adult) (pediatric); I27.2 Other secondary pulmonary hypertension; I13.2 Hypertensive heart and chronic kidney disease with heart failure and with stage 5 chronic kidney disease, or end stage renal disease; N18.6 End stage renal disease; Z99.2 Dependence on renal dialysis; I25.10 Atherosclerotic heart disease of native coronary artery without angina pectoris; E87.70 Fluid overload, unspecified; I50.33 Acute on chronic diastolic (congestive) heart failure; E78.5 Hyperlipidemia, unspecified
CPT/HCPCS: 36415; 36600; 71010-TC; 76000-TC; 76775-TC; 76856-TC; 80048; 80053; 80061; 81003; 81015; 82550; 82553; 82565; 82728; 82803; 83036; 83540; 83721; 83735; 83880; 84100; 84155; 84165; 84484; 84520; 85025; 85027; 85610; 85730; 86038; 86704; 86706; 86708; 86850; 86900; 86901; 87086; 87340; 93005; 93010; 93306-TC; 93970-TC; 94640; 94660; 94760; 99285-25; J0885; J1644

== ENCOUNTER 2017-04-28 12:25 | Observation (INO) | payer OTHER ==
--- NOTE | 2017-04-28 12:33 | PDOC ---
History of Present Illness <Juli Hazel - Last Filed: 04/28/17 15:33> - General History Source: Patient Exam Limitations: No Limitations - History of Present Illness Initial Comments: 04/28/17 13:09 The patient is a 55 year old male with a significant past medical history of, renal insufficiency (on 2-3 months of dialysis- T,Th,Sat) and HTN, who presents to the ER s/p syncope now. Patient states he took all of his medication this morning. He was in the hospital today to get his fistula checked and reports having a syncopal episode followed by one episode of nonbloody/nonbilious vomiting. Patient admits he hit the back of his head during the fall. On interview, he denies any associated pain or dizziness. Patients last dialysis was yesterday. Denies diarrhea or abdominal pain Denies fever, chills Denies lightheadedness, dizziness, or changes in vision PCP: Dr. [employer] Cast[employer] Machine Operator: Dr. Mancia <Darlin Cabrera - Last Filed: 04/28/17 15:39> - General Chief Complaint: Syncope/Near Syncope Stated Complaint: RAPID RESPONSE Time Seen by Provider: 04/28/17 12:33 Past History - Past Medical History COPD: Yes (Possible but Patient denies) CHF: Yes (Possible but Patient denies) HTN: Yes - Psycho/Social/Smoking Cessation Hx Anxiety: No Suicidal Ideation: No Smoking History: Never smoked Have you smoked in the past 12 months: No Hx Alcohol Use: No Drug/Substance Use Hx: No Substance Use Type: None <Juli Hazel - Last Filed: 04/28/17 15:33> <Darlin Cabrera - Last Filed: 04/28/17 15:39> - Past Medical History Allergies/Adverse Reactions: Allergies Allergy/AdvReac Type Severity Reaction Status Date / Time No Known Allergies Allergy Verified 04/28/17 12:41 Home Medications: Ambulatory Orders Aspirin [ASA -] 81 mg PO DAILY 02/20/17 Enalapril Maleate [Vasotec] 20 mg PO BID 02/20/17 Furosemide [Lasix] 80 mg PO DAILY 02/20/17 Hydralazine HCl 100 mg PO BID 02/20/17 Simvastatin [Zocor -] 20 mg PO HS 02/20/17 Amlodipine Besylate [Norvasc -] 10 mg PO DAILY #30 tablet 02/27/17 Labetalol HCl [Normodyne -] 600 mg PO BID #60 cap.sa MDD 2 02/27/17 Review of Systems - Review of Systems Able to Perform ROS?: Yes Comments:: 04/28/17 13:10 GENERAL/CONSTITUTIONAL: No fever or chills. No weakness. HEAD, EYES, EARS, NOSE AND THROAT: No change in vision. No ear pain or discharge. No sore throat. CARDIOVASCULAR: No chest pain or shortness of breath. RESPIRATORY: No cough, wheezing, or hemoptysis. GASTROINTESTINAL: (+) vomiting. No diarrhea or constipation. GENITOURINARY: No dysuria, frequency, or change in urination. MUSCULOSKELETAL: No joint or muscle swelling or pain. No neck or back pain. SKIN: No rash NEUROLOGIC: (+) Syncope. No headache, vertigo, loss of consciousness, or change in strength/sensation. ENDOCRINE: No increased thirst. No abnormal weight change. HEMATOLOGIC/LYMPHATIC: No anemia, easy bleeding, or history of blood clots. ALLERGIC/IMMUNOLOGIC: No hives or skin allergy. <Uts,Darlin - Last Filed: 04/28/17 15:39> *Physical Exam - Vital Signs Last Vital Signs Temp Pulse Resp BP Pulse Ox 97.0 F L 70 18 92/81 98 04/28/17 12:25 04/28/17 12:25 04/28/17 12:25 04/28/17 12:25 04/28/17 12:25 - Physical Exam Comments: 04/28/17 13:47 GENERAL: Awake, alert, and fully oriented, in no acute distress HEAD: No signs of trauma EYES: PERRLA, EOMI, sclera anicteric, conjunctiva clear ENT: Auricles normal inspection, hearing grossly normal, nares patent, oropharynx clear without exudates. Moist mucosa NECK: Normal ROM, supple, no lymphadenopathy, JVD, or masses LUNGS: Breath sounds equal, clear to auscultation bilaterally. No wheezes, and no crackles HEART: Regular rate and rhythm, normal S1 and S2, no murmurs, rubs or gallops ABDOMEN: Soft, nontender, normoactive bowel sounds. No guarding, no rebound. No masses EXTREMITIES: No midline tenderness. Fistula in place left wrist, with a thrill and bruits. No erythema or tenderness. Normal range of motion, no edema. No clubbing or cyanosis. No cords, erythema, or tenderness NEUROLOGICAL: Cranial nerves II through XII grossly intact. Normal speech, normal gait SKIN: Warm, Dry, normal turgor, no rashes or lesions noted. <Darlin Cabrera - Last Filed: 04/28/17 15:39> ED Treatment Course - LABORATORY CBC & Chemistry Diagram: 04/28/17 12:58 04/28/17 12:58 <Juli Hazel - Last Filed: 04/28/17 15:33> - LABORATORY CBC & Chemistry Diagram: 04/28/17 12:58 04/28/17 12:58 - RADIOLOGY Radiograph Interpretation: 04/28/17 15:18 Chest XR impression reported by Dr. Olea: No evidence of active pulmonary disease. <DeborahDarlin - Last Filed: 04/28/17 15:39> Medical Decision Making - Medical Decision Making 04/28/17 15:23 Pt presents to the ED after witnessed syncope today. No prodromal symptoms. No loss of bowel or bladder control, no tonic clonic movements. Patient reports that he his head, but there are no signs of trauma above the clavicles. EKG shows sinus rhythm with no evidence of ischemia. Mildly hypotensive on arrival to the ED. Patient took lasix, labetolol, hydralazine and norvasc this AM prior to coming to [facility] for outpatient appt. As per his mother, he usually takes his blood pressure medications and then goes back to sleep. 04/28/17 15:31 Labs are within normal limits except for elevated BUN and Cr. Case discussed with Dr. Her, who agrees with admitting the patient for observation. <Juli Hazel - Last Filed: 04/28/17 15:33> - Medical Decision Making 04/28/17 15:[address] Kaelyn Ferreira Case discussed with Dr. Mancia (stewardess supervisor) <Darlin Cabrera - Last Filed: 04/28/17 15:39> *DC/Admit/Observation/Transfer - Discharge Dispostion Admit: Yes Decision to Admit order Date/Time: 04/28/17 15:33 <Juli Hazel - Last Filed: 04/28/17 15:33> - Attestations Scribe Attestion: 04/28/17 13:48 Documentation prepared by Darlin Cabrera, acting as medical instructor for Juli Hazel MD. <Darlin Cabrera - Last Filed: 04/28/17 15:39> Diagnosis at time of Disposition: Syncope Qualifiers: Syncope type: unspecified Qualified Code(s): R55 - Syncope and collapse - Referrals Referrals: Ed Boyer MD [Primary Care Provider] -
[2017-04-28 12:41] VITALS: BMI 40.6
[2017-04-28 13:15] LABS: BASOPHIL 0.6 % (0-2.0); EOSINOPHIL 18.7 % (0-4.5); MCH 28.7 pg (25.7-33.7); MCHC 32.6 g/dl (32.0-35.9); MEAN PLT VOLUME 8.5 fl (7.5-11.1); NEUTROPHILS 56.8 % (42.8-82.8); PLATELET COUNT 180 K/MM3 (134-434); RDW 17.9 % (11.9-15.9); WHITE BLOOD COUNT 5.4 K/mm3 (4.0-10.0)
[2017-04-28 13:39] LABS: ALBUMIN 3.8 g/dl (3.4-5.0); ANION GAP 14 (8-16); BILIRUBIN,TOTAL 0.4 mg/dL (0.2-1.0); CALCIUM 9.4 mg/dL (8.5-10.1); CO2 29 mmol/L (21-32); GLUCOSE,RANDOM 95 mg/dL (74-106); SGPT/ALT 15 U/L (12-78); TOT PROT 7.5 g/dl (6.4-8.2)
[2017-04-28 13:45] LABS: ALK PHOS 80 U/L (45-117); TROPONIN I 0.06 ng/ml (0.00-0.05)
--- NOTE | 2017-04-28 14:12 | RAPID ---
Physical Examination Vital Signs: Vital Signs Labs: CBC, BMP 04/28/17 12:58 Rapid Response - Rapid Response Assessment: Rapid Response called. Patient is a 55 year old male with a significant past medical history of, renal insufficiency recently started dialysis (,,) and HTN who is s/p fall upon my arrival. When I reached there patient was on the floor awake and responding. Patient was oriented x3 and states he felt dizzy and lost consciousness. Patient states he did hit his head on the floor. Patient reports he was here to check his fistula at the [facility] [place]. He reports eating breakfast this morning and taking his blood pressure medications. He denies taking any anticoagulations and was able to verbalize all his medications to me. He reports taking Lasix, Vasotec, Hydralazine, and Labetolol. Patient was immediately placed on a stretcher and upon arrival in the ED department patient had an episdode nonbloody nonbilious vomiting. Remainder of care handed over to the ED staff Vitals: BP: 122/78 HR: 80 02 SATURATION: 96% RR: 18 Recommendations: -STAT CT to rule out hematoma/hemorrhage/concussion -CBC/CMP/TSH to rule out any electrolyte Imbalances/abnormalities -Monitor BP and orthostatics -CHEST X-ray to rule out any acute pathology such as CHF, PE, PNA
[2017-04-28 14:27] LABS: CREATININE 7.6 mg/dL (0.7-1.3)
[2017-04-28 14:28] LABS: SGOT/AST 17 U/L (15-37)
--- NOTE | 2017-04-28 17:50 | CONSULT ---
Consult Consult Specialty:: Nephrology Reason for Consultation:: ESRD - History of Present Illness Chief Complaint: syncope History of Present Illness: Pt is a 57 year old male with pmhx of ESRD on HD and HTN who was brought to the ER after a syncopal episode. He took all of his meds this morning. He did hit his head when he fell. I was called to evaluate him as he is on HD. His lat dialysis session was yesterday. He is on a TTS schedule. He is awake and alert. He denies any weakness. He was having his fistula checked when this happened. He was also found to be hypotensive. - History Source History Provided By: Patient, Medical Record - Past Medical History Cardio/Vascular: Yes: CHF, HTN, Hyperlipdemia Pulmonary: Yes: Sleep Apnea Renal/: Yes: Renal Inusuff, Hemodialysis Rheumatology: Yes: Other (positive marielle) - Past Surgical History Past Surgical History: Yes: AV Fistula/Graft - Alcohol/Substance Use Hx Alcohol Use: No - Smoking History Smoking history: Never smoked Have you smoked in the past 12 months: No Home Medications - Allergies Allergies/Adverse Reactions: Allergies Allergy/AdvReac Type Severity Reaction Status Date / Time No Known Allergies Allergy Verified 04/28/17 12:41 - Home Medications Home Medications: Ambulatory Orders Aspirin [ASA -] 81 mg PO DAILY 02/20/17 Enalapril Maleate [Vasotec] 20 mg PO BID 02/20/17 Furosemide [Lasix] 80 mg PO DAILY 02/20/17 Hydralazine HCl 100 mg PO BID 02/20/17 Simvastatin [Zocor -] 20 mg PO HS 02/20/17 Amlodipine Besylate [Norvasc -] 10 mg PO DAILY #30 tablet 02/27/17 Labetalol HCl [Normodyne -] 600 mg PO BID #60 cap.sa MDD 2 02/27/17 Family Disease History - Family Disease History Family History: Denies Review of Systems - Review of Systems Constitutional: reports: No Symptoms Eyes: reports: No Symptoms HENT: reports: No Symptoms Neck: reports: No Symptoms Cardiovascular: reports: Other (syncope) Respiratory: reports: No Symptoms Gastrointestinal: reports: No Symptoms Genitourinary: reports: No Symptoms Musculoskeletal: reports: No Symptoms Neurological: reports: No Symptoms Endocrine: reports: No Symptoms Hematology/Lymphatic: reports: No Symptoms Psychiatric: reports: No Symptoms Physical Exam Vital Signs: Vital Signs Temperature 97.6 F 04/28/17 13:00 Pulse Rate 77 04/28/17 17:32 Respiratory Rate 18 04/28/17 17:32 Blood Pressure 97/70 04/28/17 17:32 O2 Sat by Pulse Oximetry (%) 98 04/28/17 17:32 Constitutional: Yes: Calm Eyes: Yes: Conjunctiva Clear HENT: Yes: Atraumatic Neck: Yes: Supple Cardiovascular: Yes: S1, S2 Respiratory: Yes: CTA Bilaterally Gastrointestinal: Yes: Normal Bowel Sounds, Soft Renal/: Yes: WNL Musculoskeletal: Yes: WNL Extremities: Yes: Other (left arm fistula with thrill and bruit) Neurological: Yes: Oriented Psychiatric: Yes: Oriented Labs: Laboratory Tests 04/28/17 04/28/17 12:58 12:58 WBC 5.4 D Hgb 11.0 L D Plt Count 180 D Sodium 139 Potassium 4.7 Chloride 96 L Carbon Dioxide 29 Anion Gap 14 BUN 35 H Creatinine 7.6 H* D Imaging - Results Chest X-ray: Report Reviewed Problem List - Problems (1) Syncope Code(s): R55 - SYNCOPE AND COLLAPSE Qualifiers: Syncope type: unspecified Qualified Code(s): R55 - Syncope and collapse (2) CHF (congestive heart failure) Code(s): I50.9 - HEART FAILURE, UNSPECIFIED Qualifiers: (3) CKD (chronic kidney disease) Code(s): N18.9 - CHRONIC KIDNEY DISEASE, UNSPECIFIED (4) ESRD (end stage renal disease) on dialysis Code(s): N18.6 - END STAGE RENAL DISEASE Z99.2 - DEPENDENCE ON RENAL DIALYSIS (5) HTN (hypertension) Code(s): I10 - ESSENTIAL (PRIMARY) HYPERTENSION Qualifiers: (6) Sleep apnea Code(s): G47.30 - SLEEP APNEA, UNSPECIFIED Qualifiers: Assessment/Plan Current Medications Generic Name Dose Route Start Last Admin Trade Name Freq PRN Reason Stop Dose Admin Aspirin 81 mg 04/29/17 10:00 Asa - PO DAILY MEME Atorvastatin Calcium 10 mg 04/28/17 22:00 Lipitor - PO HS MEME Enalapril Maleate 20 mg 04/28/17 22:00 Vasotec - PO BID MEME Labetalol HCl 600 mg 04/28/17 22:00 Normodyne - PO BID MEME Last Vital Signs Temp Pulse Resp BP Pulse Ox 97.6 F 77 18 97/70 98 04/28/17 13:00 04/28/17 17:32 04/28/17 17:32 04/28/17 17:32 04/28/17 17:32 Impression 1. ESRD on HD 2. CHF 3. HTN 4. obesity 5. hyperlipidemia 6. hyperkalemia 7. positive marielle 8. syncope 9. head trauma Plan - monitor blood pressure - get CT scan of the head, should be done before pt gets HD tomorrow - can hold norvasc and hydralazine for now - will put parameters on labetolol and enalepril - check orthostatisc vitals - will follow Dr Mancia
[2017-04-28 19:31] LABS: TROPONIN I 0.05 ng/ml (0.00-0.05)
[2017-04-28] MEDS: ENALAPRIL MALEATE 10 MG TABLET (FP) PO SCH (21:05)
[2017-04-28] MEDS: LABETALOL HCL 200 MG TABLET (FP) PO SCH (21:05)
[2017-04-28] MEDS: ATORVASTATIN CA 10 MG TABLET (FP) PO SCH (21:05)
[2017-04-28] MEDS ORDERED: PATIENT'S OWN MEDICATION (NON-FORMULARY) (Hydralazine Hcl [Hydralazine Hcl] 100 MG) PO SCH (22:00)
[2017-04-29] MEDS ORDERED: PARICALCITOL 5 MCG/ML VIAL IVPUSH ONE (08:00)
[2017-04-29 08:50] LABS: MCH 29.1 pg (25.7-33.7); MCHC 32.9 g/dl (32.0-35.9); MEAN CELL VOLUME 88.6 fl (80-96); MEAN PLT VOLUME 8.5 fl (7.5-11.1); PLATELET COUNT 185 K/MM3 (134-434); RDW 18.5 % (11.9-15.9); WHITE BLOOD COUNT 7.3 K/mm3 (4.0-10.0)
[2017-04-29 09:14] LABS: ALBUMIN 3.7 g/dl (3.4-5.0); ANION GAP 14 (8-16); CALCIUM 9.5 mg/dL (8.5-10.1); CO2 27 mmol/L (21-32); GLUCOSE,RANDOM 93 mg/dL (74-106); SGOT/AST 15 U/L (15-37); SGPT/ALT 14 U/L (12-78); TOT PROT 8.4 g/dl (6.4-8.2)
[2017-04-29 09:20] LABS: ALK PHOS 83 U/L (45-117); BILIRUBIN,TOTAL 0.6 mg/dL (0.2-1.0)
[2017-04-29 09:37] LABS: CREATININE 9.5 mg/dL (0.7-1.3)
--- NOTE | 2017-04-29 09:57 | EKG ---
Test Reason : Blood Pressure : / mmHG Vent. Rate : 069 BPM Atrial Rate : 069 BPM P-R Int : 210 ms QRS Dur : 102 ms QT Int : 450 ms P-R-T Axes : 054 009 048 degrees QTc Int : 482 ms SINUS RHYTHM WITH 1ST DEGREE A-V BLOCK POSSIBLE LEFT ATRIAL ENLARGEMENT PROLONGED QT ABNORMAL ECG WHEN COMPARED WITH ECG OF 20-FEB-2017 10:22, NO SIGNIFICANT CHANGE WAS FOUND Confirmed by CROW GOMEZ MD ([id number]) on 04/29/2017 9:57:05 AM Referred By: Confirmed By:CROW GOMEZ MD
[2017-04-29] MEDS ORDERED: PATIENT'S OWN MEDICATION (NON-FORMULARY) (Furosemide [Lasix] 80 MG) PO SCH (10:00)
[2017-04-29] MEDS ORDERED: amLODIPine BESYLATE 10 MG TABLET (FP) PO SCH (10:00)
--- NOTE | 2017-04-29 10:23 | PN ---
Progress Note (short form) - Note Progress Note: RENAL Pt is awake and alert currently on HD concerned about his heart and asked me to listen which I did Last Vital Signs Temp Pulse Resp BP Pulse Ox 97.6 F 61 18 109/74 96 04/29/17 06:00 04/29/17 08:30 04/29/17 08:30 04/29/17 08:30 04/28/17 21:00 lungs clear cvs s1s2 rr bd soft ext no edema CBC, BMP 04/29/17 06:30 04/29/17 06:30 Current Medications Generic Name Dose Route Start Last Admin Trade Name Freq PRN Reason Stop Dose Admin Aspirin 81 mg 04/29/17 10:00 Asa - PO DAILY MEME Atorvastatin Calcium 10 mg 04/28/17 22:00 04/28/17 21:05 Lipitor - PO 10 mg HS MEME Administration Enalapril Maleate 20 mg 04/28/17 22:00 04/28/17 21:05 Vasotec - PO 20 mg BID MEME Administration Labetalol HCl 600 mg 04/28/17 22:00 04/28/17 21:05 Normodyne - PO 600 mg BID MEME Administration CT scan is neg Impression 1. ESRD on HD 2. CHF 3. HTN 4. obesity 5. hyperlipidemia 6. hyperkalemia 7. positive marielle 8. syncope 9. head trauma Plan continue current management BP is cuntrolled MV
--- NOTE | 2017-04-29 11:28 | CON.CARD ---
Cardiology Consult (text) - Consultation Consultation Note: CC: syncope hpi: 57 yo HTN, HPL, obesity, CAD (ab stress - tx medically) severe KIM, ESRD on HD who presents with syncope. Pt reports that he has recently noticed dizziness at times when he stands up. Yesterday was at doctor office and when he stood up and walked to the front desk receptionist he felt lightheaded and passed out. No cp, sob, palps, pnd, orthopnea, le edema. Feeling better this AM, asking to go home. pmhx/pshx; per hpi fam hx: no sig cardiac hx social hx: former tobacco, no etoh ros: per hpi; no nvd, cough, nasal congestion, henry, vision changes, muscle pain, gib, hematuria, dysuria, fever meds: Home Medications Medication Instructions Recorded Aspirin [ASA -] 81 mg PO DAILY 02/20/17 Enalapril Maleate [Vasotec] 20 mg PO BID 02/20/17 Furosemide [Lasix] 80 mg PO DAILY 02/20/17 Hydralazine HCl 100 mg PO BID 02/20/17 Simvastatin [Zocor -] 20 mg PO HS 02/20/17 Amlodipine Besylate [Norvasc -] 10 mg PO DAILY #30 tablet 02/27/17 Labetalol HCl [Normodyne -] 600 mg PO BID #60 cap.sa MDD 2 02/27/17 pe: Vital Signs Period Temp Pulse Resp BP Sys/Iraheta Pulse Ox Last 24 Hr 97.0 F-98.6 F 61-77 18-20 92-142/61-81 96-99 Nad, no jvd rrr nl s1, s2 no mrg cta bl nl eff abd nd nt pos bs no le e/c/c pos dp pt no carotid bruits no jaundice, diaphoresis aaox3 Laboratory Last Values WBC 7.3 K/mm3 (4.0-10.0) D 04/29/17 06:30 RBC 3.87 M/mm3 (4.00-5.60) L 04/29/17 06:30 Hgb 11.3 GM/dL (11.7-16.9) L 04/29/17 06:30 Hct 34.3 % (35.4-49) L 04/29/17 06:30 MCV 88.6 fl (80-96) 04/29/17 06:30 MCHC 32.9 g/dl (32.0-35.9) 04/29/17 06:30 RDW 18.5 % (11.9-15.9) H 04/29/17 06:30 Plt Count 185 K/MM3 (134-434) 04/29/17 06:30 MPV 8.5 fl (7.5-11.1) 04/29/17 06:30 Neutrophils % 56.8 % (42.8-82.8) 04/28/17 12:58 Lymphocytes % 14.1 % (8-40) D 04/28/17 12:58 Monocytes % 9.8 % (3.8-10.2) 04/28/17 12:58 Eosinophils % 18.7 % (0-4.5) H 04/28/17 12:58 Basophils % 0.6 % (0-2.0) 04/28/17 12:58 Sodium 135 mmol/L (136-145) L 04/29/17 06:30 Potassium 4.3 mmol/L (3.5-5.1) 04/29/17 06:30 Chloride 94 mmol/L (98-107) L 04/29/17 06:30 Carbon Dioxide 27 mmol/L (21-32) 04/29/17 06:30 Anion Gap 14 (8-16) 04/29/17 06:30 BUN 50 mg/dL (7-18) H D 04/29/17 06:30 Creatinine 9.5 mg/dL (0.7-1.3) H* D 04/29/17 06:30 Creat Clearance w eGFR 5.75 (>60) 04/29/17 06:30 Random Glucose 93 mg/dL (74-106) 04/29/17 06:30 Lactic Acid 0.6 mmol/L (0.4-2.0) 04/28/17 12:58 Calcium 9.5 mg/dL (8.5-10.1) 04/29/17 06:30 Total Bilirubin 0.6 mg/dL (0.2-1.0) D 04/29/17 06:30 AST 15 U/L (15-37) 04/29/17 06:30 ALT 14 U/L (12-78) 04/29/17 06:30 Alkaline Phosphatase 83 U/L (45-117) 04/29/17 06:30 Creatine Kinase 111 IU/L (39-308) 04/28/17 18:54 Troponin I 0.05 ng/ml (0.00-0.05) 04/28/17 18:54 Total Protein 8.4 g/dl (6.4-8.2) H 04/29/17 06:30 Albumin 3.7 g/dl (3.4-5.0) 04/29/17 06:30 Hepatitis C Antibody Cancelled 04/29/17 06:30 tele: sr EKG 04/28/17: sr, nl intervals, no ischemic changes CXR: clear lungs echo 02/2017: nl lvef, mod lve, mild rve, nl rv fcn, mild lae, mild-mod tr Echo 07/2014: normal LV/RV function, mod concentric LVH, no sig valv abn Echo 03/2013: normal LV/RV function, mild to mod concentric LVH, no sig valv abn Stress MPI 03/2013: moderate anny-lateral scar and infero-lateral ischemia. enlarged LV a/p: 57 yo HTN, HPL, obesity, CAD (ab stress - tx medically) severe KIM, ESRD on HD who presents with syncope. syncope: -sounds like orthostatic hypotension based on description of episode -bp has been running low so likely precipitated by his htn meds -agree with decreasing htn meds (norvasc, hydralzine, lasix stopped now) -recent echo w/o etiology -tele, ecg benign here -pt wants to go home today after HD-->would check orthostatic VS after HD and if normal than ok for dc from cardiac pov chronic diastolic chf: -stable vol status, cont hd per renal CAD: - ce's neg, ekg without acute ischemic changes, no suggestion of acs or angina - cont asa, statin bb, ale htn - plan as above. cont bb, ale for now kim - bipap esrd -HD per renal
[2017-04-29] MEDS: ASPIRIN 81 MG CHEWABLE TABLETS PO SCH (14:00)
[2017-04-29] MEDS: ENALAPRIL MALEATE 10 MG TABLET (FP) PO SCH (15:08)
[2017-04-29] MEDS: LABETALOL HCL 200 MG TABLET (FP) PO SCH ×2 (15:08→21:17)
--- NOTE | 2017-04-29 15:13 | HP ---
Admitting History and Physical - Primary Care Physician PCP: Ed Boyer - Admission Chief Complaint: syncope History of Present Illness: 57 yrs old male went to wound clinic yesterday to get his fistula checked ,when as he stood up , felt dizzy and LOC and hit his head. Takes multiple BP meds and took them all yesterday . Has severe Sleep apnea but non compliant with CPAP Pt receiving dialysis when I examined him. No distress No chest pain or palpitations. History Source: Patient Limitations to Obtaining History: No Limitations - Past Medical History Cardiovascular: Yes: CHF (diastolic dysfunction), HTN, Hyperlipdemia Pulmonary: Yes: Sleep Apnea Renal/: Yes: Renal Inusuff, Hemodialysis Rheumatology: Yes: Other (positive marielle) - Past Surgical History Past Surgical History: Yes: AV Fistula/Graft - Smoking History Smoking history: Never smoked Have you smoked in the past 12 months: No - Alcohol/Substance Use Hx Alcohol Use: No Home Medications - Allergies Allergies/Adverse Reactions: Allergies Allergy/AdvReac Type Severity Reaction Status Date / Time No Known Allergies Allergy Verified 04/28/17 12:41 - Home Medications Home Medications: Ambulatory Orders Aspirin [ASA -] 81 mg PO DAILY 02/20/17 Enalapril Maleate [Vasotec] 20 mg PO BID 02/20/17 Furosemide [Lasix] 80 mg PO DAILY 02/20/17 Hydralazine HCl 100 mg PO BID 02/20/17 Simvastatin [Zocor -] 20 mg PO HS 02/20/17 Amlodipine Besylate [Norvasc -] 10 mg PO DAILY #30 tablet 02/27/17 Labetalol HCl [Normodyne -] 600 mg PO BID #60 cap.sa MDD 2 02/27/17 Review of Systems - Review of Systems Constitutional: denies: Chills Cardiovascular: denies: Chest Pain, Palpitations, Shortness of Breath Physical Examination Vital Signs: Vital Signs Temperature 99.2 F 04/29/17 14:00 Pulse Rate 71 04/29/17 14:00 Respiratory Rate 20 04/29/17 14:00 Blood Pressure 111/69 04/29/17 14:00 O2 Sat by Pulse Oximetry (%) 98 04/29/17 10:00 Constitutional: Yes: No Distress, Calm, Other (obese) Cardiovascular: Yes: Regular Rate and Rhythm Respiratory: Yes: CTA Bilaterally Gastrointestinal: Yes: Normal Bowel Sounds, Soft, Abdomen, Obese. No: Tenderness Edema: No Psychiatric: Yes: Alert, Oriented Labs: CBC, BMP 04/29/17 06:30 04/29/17 06:30 Imaging - Results Chest X-ray: Image Reviewed (clear) EKG: Image Reviewed (NSR) Problem List - Problems (1) Syncope Assessment/Plan: likely due to multiple BP meds dc Norvasc, Hydralazine, Lasix check orthostasis Tele uneventful Echo in 02/2017-- normal LV systolic function , has diastolic dysfunction Cardiology eval Code(s): R55 - SYNCOPE AND COLLAPSE Qualifiers: Syncope type: unspecified Qualified Code(s): R55 - Syncope and collapse (2) CHF (congestive heart failure) Assessment/Plan: compensated Cardiology eval-- spoke with ardiology HD per renal Code(s): I50.9 - HEART FAILURE, UNSPECIFIED Qualifiers: Congestive heart failure type: diastolic Congestive heart failure chronicity: chronic Qualified Code(s): I50.32 - Chronic diastolic ( congestive) heart failure (3) ESRD (end stage renal disease) on dialysis Assessment/Plan: Seen by Renal not in volume overload HD today Code(s): N18.6 - END STAGE RENAL DISEASE Z99.2 - DEPENDENCE ON RENAL DIALYSIS (4) Exacerbation of chronic obstructive pulmonary disease associated with exposure to volcanic air pollution Code(s): J44.1 - CHRONIC OBSTRUCTIVE PULMONARY DISEASE W (ACUTE) EXACERBATION Z77.110 - CONTACT WITH AND (SUSPECTED) EXPOSURE TO AIR POLLUTION (5) HTN (hypertension) Code(s): I10 - ESSENTIAL (PRIMARY) HYPERTENSION Qualifiers: Hypertension type: essential hypertension (6) Sleep apnea Assessment/Plan: non compliant with CPAP machine Code(s): G47.30 - SLEEP APNEA, UNSPECIFIED Qualifiers:
[2017-04-29] MEDS: ATORVASTATIN CA 10 MG TABLET (FP) PO SCH (21:17)
[2017-04-30] MEDS: ASPIRIN 81 MG CHEWABLE TABLETS PO SCH (09:01)
[2017-04-30] MEDS: LABETALOL HCL 200 MG TABLET (FP) PO SCH (09:01)
--- NOTE | 2017-04-30 09:07 | PN ---
Progress Note, Physician Chief Complaint: no complaints still orthostatic - Current Medication List Current Medications: Active Medications Aspirin (Asa -) 81 mg PO DAILY [facility] Last Admin: 04/30/17 09:01 Dose: 81 mg Atorvastatin Calcium (Lipitor -) 10 mg PO HS [facility] Last Admin: 04/29/17 21:17 Dose: 10 mg Labetalol HCl (Normodyne -) 200 mg PO BID [facility] Last Admin: 04/30/17 09:01 Dose: 200 mg - Objective Vital Signs: Vital Signs Temperature 98.9 F 04/30/17 06:00 Pulse Rate 70 04/30/17 06:00 Respiratory Rate 18 04/30/17 06:00 Blood Pressure 126/78 04/30/17 06:00 O2 Sat by Pulse Oximetry (%) 96 04/30/17 06:00 Constitutional: Yes: No Distress Cardiovascular: Yes: Regular Rate and Rhythm Respiratory: Yes: Diminished Gastrointestinal: Yes: Normal Bowel Sounds, Soft. No: Distention, Tenderness Edema: No Labs: CBC, BMP 04/29/17 06:30 04/29/17 06:30 Problem List - Problems (1) Syncope Code(s): R55 - SYNCOPE AND COLLAPSE Qualifiers: Syncope type: unspecified Qualified Code(s): R55 - Syncope and collapse (2) CHF (congestive heart failure) Code(s): I50.9 - HEART FAILURE, UNSPECIFIED Qualifiers: Congestive heart failure type: diastolic Congestive heart failure chronicity: chronic Qualified Code(s): I50.32 - Chronic diastolic ( congestive) heart failure (3) ESRD (end stage renal disease) on dialysis Code(s): N18.6 - END STAGE RENAL DISEASE Z99.2 - DEPENDENCE ON RENAL DIALYSIS (4) Exacerbation of chronic obstructive pulmonary disease associated with exposure to volcanic air pollution Code(s): J44.1 - CHRONIC OBSTRUCTIVE PULMONARY DISEASE W (ACUTE) EXACERBATION Z77.110 - CONTACT WITH AND (SUSPECTED) EXPOSURE TO AIR POLLUTION (5) HTN (hypertension) Code(s): I10 - ESSENTIAL (PRIMARY) HYPERTENSION Qualifiers: Hypertension type: essential hypertension Qualified Code(s): I10 - Essential (primary) hypertension (6) Sleep apnea Code(s): G47.30 - SLEEP APNEA, UNSPECIFIED Qualifiers: Assessment/Plan PLAN meds adjusted not in volume overload fall precautions HD per renal
--- NOTE | 2017-04-30 10:59 | PN ---
Progress Note (short form) - Note Progress Note: s: no cp sob palps dizzy; walked halls this AM w/o sxs o: Vital Signs Period Temp Pulse Resp BP Sys/Iraheta Pulse Ox Last 24 Hr 98.4 F-99.2 F 61-83 18-20 101-136/62-95 96-97 Nad, no jvd rrr nl s1, s2 no mrg cta bl nl eff abd nd nt pos bs no le e/c/c no jaundice, diaphoresis aaox3 Current Medications Generic Name Dose Route Start Last Admin Trade Name Freshakeel PRN Reason Stop Dose Admin Aspirin 81 mg 04/29/17 10:00 04/30/17 09:01 Asa - PO 81 mg DAILY MEME Administration Atorvastatin Calcium 10 mg 04/28/17 22:00 04/29/17 21:17 Lipitor - PO 10 mg HS MEME Administration Labetalol HCl 200 mg 04/29/17 15:19 04/30/17 09:01 Normodyne - PO 200 mg BID MEME Administration CBC, BMP 04/29/17 06:30 04/29/17 06:30 tele: sr EKG 04/28/17: sr, nl intervals, no ischemic changes CXR: clear lungs echo 02/2017: nl lvef, mod lve, mild rve, nl rv fcn, mild lae, mild-mod tr Echo 07/2014: normal LV/RV function, mod concentric LVH, no sig valv abn Echo 03/2013: normal LV/RV function, mild to mod concentric LVH, no sig valv abn Stress MPI 03/2013: moderate anny-lateral scar and infero-lateral ischemia. enlarged LV a/p: 57 yo HTN, HPL, obesity, CAD (ab stress - tx medically) severe KIM, ESRD on HD who presents with syncope. syncope: -sounds like orthostatic hypotension based on description of episode -bp has been running low so likely precipitated by his htn meds -agree with decreasing htn meds (norvasc, hydralzine, lasix stopped now) -recent echo w/o etiology -tele, ecg benign here -pt feeling better today, if orthostatic VS normal than ok for dc from cardiac pov chronic diastolic chf: -stable vol status, cont hd per renal CAD: - ce's neg, ekg without acute ischemic changes, no suggestion of acs or angina - cont asa, statin bb, ale htn - plan as above. cont bb, ale for now kim - bipap esrd -HD per renal
--- NOTE | 2017-04-30 11:56 | PN ---
Progress Note (short form) - Note Progress Note: RENAL Pt is awake and alert no complaints was orthostatic but is better now Last Vital Signs Temp Pulse Resp BP Pulse Ox 97.8 F 78 18 139/66 97 04/30/17 10:00 04/30/17 10:00 04/30/17 10:00 04/30/17 10:00 04/30/17 10:00 lungs clear cvs s1s2 rr bd soft ext no edema CBC, BMP 04/29/17 06:30 04/29/17 06:30 Current Medications Generic Name Dose Route Start Last Admin Trade Name Freq PRN Reason Stop Dose Admin Aspirin 81 mg 04/29/17 10:00 04/30/17 09:01 Asa - PO 81 mg DAILY MEME Administration Atorvastatin Calcium 10 mg 04/28/17 22:00 04/29/17 21:17 Lipitor - PO 10 mg HS MEME Administration Labetalol HCl 200 mg 04/29/17 15:19 04/30/17 09:01 Normodyne - PO 200 mg BID MEME Administration CT scan is neg Impression 1. ESRD on HD 2. CHF 3. HTN 4. obesity 5. hyperlipidemia 6. hyperkalemia 7. positive marielle 8. syncope/orthostatic hypotension 9. head trauma Plan Pt is better. CAn continue current management May have been dry with dialysis May benefit from compression stockings if he still has orthostatic hypotension MV
[2017-04-30] MEDS: LABETALOL HCL 100 MG TABLET (FP) PO SCH (21:57)
[2017-04-30] MEDS: ATORVASTATIN CA 10 MG TABLET (FP) PO SCH (21:57)
--- NOTE | 2017-05-01 07:58 | DS ---
Physical Examination Vital Signs: Vital Signs Temperature 98.5 F 05/01/17 06:00 Pulse Rate 87 05/01/17 06:00 Respiratory Rate 18 05/01/17 06:00 Blood Pressure 127/78 05/01/17 06:00 O2 Sat by Pulse Oximetry (%) 98 05/01/17 06:00 Labs: CBC, BMP 04/29/17 06:30 04/29/17 06:30 <Cecilia Damon - Last Filed: 05/01/17 07:58> Vital Signs: Vital Signs Temperature 98.5 F 05/01/17 06:00 Pulse Rate 87 05/01/17 06:00 Respiratory Rate 18 05/01/17 06:00 Blood Pressure 127/78 05/01/17 06:00 O2 Sat by Pulse Oximetry (%) 98 05/01/17 06:00 Findings/Remarks: Patient seen and examined. Chart reviewed. Comfortable. No complaints. Feels OK. Wants to go home. Constitutional: Yes: No Distress Neck: Yes: Supple Cardiovascular: Yes: Regular Rate and Rhythm Respiratory: Yes: CTA Bilaterally Gastrointestinal: Yes: Soft Edema: No Neurological: Yes: Alert Labs: CBC, BMP 04/29/17 06:30 04/29/17 06:30 <Hanane Del Castillo - Last Filed: 05/01/17 10:55> Discharge Summary Reason For Visit: SYNCOPE Current Active Problems Syncope (Acute) - Home Medications Comprehensive Discharge Medication List: Ambulatory Orders Aspirin [ASA -] 81 mg PO DAILY 02/20/17 Simvastatin [Zocor -] 20 mg PO HS 02/20/17 Labetalol HCl [Normodyne -] 100 mg PO BID tablet 05/01/17 <Cecilia Damon - Last Filed: 05/01/17 07:58> Current Active Problems Syncope (Acute) Hospital Course: The patient is a 55 year old male with a significant past medical history of, renal insufficiency (on 2-3 months of dialysis- ,Mon) and HTN, who presents to the ER s/p syncope. Patient states he took all of his medication this morning. He was in the hospital today to get his fistula checked and reports having a syncopal episode followed by one episode of nonbloody/ nonbilious vomiting. Patient found to have severe orthostasis. Many BP medications discontinued. Patient feels much better. Kunal d/c Labetelol 100 mg BID. Patient's BP to be monitored by his PMD as well as HD center. Monitor for orthostasis. Medications reconciled. Discussed with nursing staff also. All above discussed with patient who is also in agreement. Discharge time in planning, documenting and examinin mins Documentation prepared by Hanane Del Castillo, acting as a medical billing clerk for Cecilia Damon MD. - Home Medications Comprehensive Discharge Medication List: Ambulatory Orders Aspirin [ASA -] 81 mg PO DAILY 02/20/17 Simvastatin [Zocor -] 20 mg PO HS 02/20/17 Labetalol HCl [Normodyne -] 100 mg PO BID tablet 05/01/17 <Hanane Del Castillo - Last Filed: 05/01/17 10:55> - Instructions Referrals: Ed Boyer MD [Primary Care Provider] -
[2017-05-01] MEDS: LABETALOL HCL 100 MG TABLET (FP) PO SCH (09:08)
[2017-05-01] MEDS: ASPIRIN 81 MG CHEWABLE TABLETS PO SCH (09:08)
--- NOTE | 2017-05-01 09:47 | PN ---
Progress Note, Physician Chief Complaint: syncope History of Present Illness: not dizzy standing and walking today no cp, sob, palpit - Current Medication List Current Medications: Active Medications Aspirin (Asa -) 81 mg PO DAILY [facility] Last Admin: 05/01/17 09:08 Dose: 81 mg Atorvastatin Calcium (Lipitor -) 10 mg PO HS [facility] Last Admin: 04/30/17 21:57 Dose: 10 mg Labetalol HCl (Normodyne -) 100 mg PO BID [facility] Last Admin: 05/01/17 09:08 Dose: 100 mg - Objective Vital Signs: Vital Signs Temperature 98.5 F 05/01/17 06:00 Pulse Rate 87 05/01/17 06:00 Respiratory Rate 18 05/01/17 06:00 Blood Pressure 127/78 05/01/17 06:00 O2 Sat by Pulse Oximetry (%) 98 05/01/17 06:00 Constitutional: Yes: Well Nourished, No Distress, Calm Cardiovascular: Yes: Regular Rate and Rhythm, S1, S2. No: Gallop, Murmur Respiratory: Yes: Regular, CTA Bilaterally. No: Accessory Muscle Use, Rales, Wheezes Extremities: No: Cold Edema: No Neurological: Yes: Alert, Oriented Psychiatric: No: Agitated Labs: CBC, BMP 04/29/17 06:30 04/29/17 06:30 - ....Imaging EKG: Other (tele: NSR, NSVT x 5b) Assessment/Plan EKG 04/28/17: sr, nl intervals, no ischemic changes CXR: clear lungs Echo 02/2017: nl lvef, mod lve, mild rve, nl rv fcn, mild lae, mild-mod tr Echo 07/2014: normal LV/RV function, mod concentric LVH, no sig valv abn Echo 03/2013: normal LV/RV function, mild to mod concentric LVH, no sig valv abn Stress MPI 03/2013: moderate anny-lateral scar and infero-lateral ischemia. enlarged LV a/p: 57 yo HTN, HPL, obesity, CAD (ab stress test - tx medically) severe KIM, ESRD on HD who presents with syncope. syncope: -clinical suspicion for orthostatic hypotension based on description of episode -bp has been running low so likely precipitated by his htn meds -agree with decreasing htn meds (norvasc, hydralzine, lasix stopped now) -recent echo unrevealing -tele, ecg benign here -remained very orthostatic 04/30 (155 to 99 standing)--? if remains intravasc depleted and needs less UF during dialysis and allow dry wt to rise a bit--per renal -labetalol 200 bid decr'd to 100 bid yest for above bp drop noted--better this am (150s to 120s standing) and no more dizzy today. -ok for d/c from CV p.o.v. --ok to go home on labetalol 100 bid and f/u with dr ruiz pmd and dr woods for BP assessment (at HD) NSVT: -brief 5 beat run NSVT on tele -preserved EF with no other signif structural heart dz on recent echo -K good, stat Mag ordered--? po repletion if low -on BB -one brief run NSVT does not warrant repeat ischemia eval or aggressive tx in absence of anginal sx's--no adverse prognosis assctd with this finding--no further w/u needed -outpt f/u with cardio rec'd, in light of h/o cad chronic diastolic chf: -stable vol status, cont hd per renal CAD: - ce's neg, ekg without acute ischemic changes, no suggestion of acs or angina - cont asa, statin bb, ale htn - plan as above (orthostatic hypotension counfounding) kim - bipap esrd -HD per renal
[2017-05-01 10:33] VITALS: BP 140/83; PULSE 74; TEMP 98
--- NOTE | 2017-05-01 13:35 | PN ---
Progress Note, Physician History of Present Illness: Pt seen and examined at bedside. He is awake and alert. He denies shortness of breath. - Current Medication List Current Medications: Active Medications Aspirin (Asa -) 81 mg PO DAILY [facility] Last Admin: 05/01/17 09:08 Dose: 81 mg Atorvastatin Calcium (Lipitor -) 10 mg PO HS [facility] Last Admin: 04/30/17 21:57 Dose: 10 mg Labetalol HCl (Normodyne -) 100 mg PO BID [facility] Last Admin: 05/01/17 09:08 Dose: 100 mg - Objective Vital Signs: Vital Signs Temperature 98 F 05/01/17 10:00 Pulse Rate 74 05/01/17 10:00 Respiratory Rate 18 05/01/17 10:00 Blood Pressure 140/83 05/01/17 10:00 O2 Sat by Pulse Oximetry (%) 98 05/01/17 09:00 Constitutional: Yes: Calm Eyes: Yes: Conjunctiva Clear HENT: Yes: Atraumatic Neck: Yes: Supple Cardiovascular: Yes: S1, S2 Respiratory: Yes: CTA Bilaterally Gastrointestinal: Yes: Normal Bowel Sounds, Soft Genitourinary: Yes: WNL Edema: Yes Edema: LLE: Trace, RLE: Trace Neurological: Yes: Oriented Psychiatric: Yes: Oriented Labs: CBC, BMP 04/29/17 06:30 04/29/17 06:30 Problem List - Problems (1) Syncope Code(s): R55 - SYNCOPE AND COLLAPSE Qualifiers: Syncope type: unspecified Qualified Code(s): R55 - Syncope and collapse (2) CHF (congestive heart failure) Code(s): I50.9 - HEART FAILURE, UNSPECIFIED Qualifiers: Congestive heart failure type: diastolic Congestive heart failure chronicity: chronic Qualified Code(s): I50.32 - Chronic diastolic ( congestive) heart failure (3) CKD (chronic kidney disease) Code(s): N18.9 - CHRONIC KIDNEY DISEASE, UNSPECIFIED (4) ESRD (end stage renal disease) on dialysis Code(s): N18.6 - END STAGE RENAL DISEASE Z99.2 - DEPENDENCE ON RENAL DIALYSIS (5) HTN (hypertension) Code(s): I10 - ESSENTIAL (PRIMARY) HYPERTENSION Qualifiers: Hypertension type: essential hypertension Qualified Code(s): I10 - Essential (primary) hypertension (6) Sleep apnea Code(s): G47.30 - SLEEP APNEA, UNSPECIFIED Qualifiers: Assessment/Plan Current Medications Generic Name Dose Route Start Last Admin Trade Name Jonathan PRN Reason Stop Dose Admin Aspirin 81 mg 04/29/17 10:00 05/01/17 09:08 Asa - PO 81 mg DAILY MEME Administration Atorvastatin Calcium 10 mg 04/28/17 22:00 04/30/17 21:57 Lipitor - PO 10 mg HS MEME Administration Labetalol HCl 100 mg 04/30/17 22:00 05/01/17 09:08 Normodyne - PO 100 mg BID MEME Administration Impression 1. ESRD on HD 2. CHF 3. HTN 4. obesity 5. hyperlipidemia 6. hyperkalemia 7. positive marielle 8. syncope 9. head trauma Plan - monitor blood pressure - con labetolol - pt has HD scheduled as outpt tomorrow - ct head reviewed - will monitor BP in HD - will follow Dr Mancia
[2017-05-01 16:21] LABS: HEP B SURFACE AB Non Reactive (.)
== END 2017-05-01 14:53 | disposition home or self-care (01) ==
LOC: JER 12:25 → JERBED 15:34 → J4W 18:20
PROVIDERS: ADMIT Internal Medicine; ATTEND Internal Medicine
PROC: 3E033GC Introduction of Other Therapeutic Substance into Peripheral Vein, Percutaneous Approach (ICD-10-PCS; principal; 2017-04-28)
DX: R55 Syncope and collapse (principal); I12.0 Hypertensive chronic kidney disease with stage 5 chronic kidney disease or end stage renal disease; N18.6 End stage renal disease; N18.9 Chronic kidney disease, unspecified; Z99.2 Dependence on renal dialysis; E78.5 Hyperlipidemia, unspecified; R42 Dizziness and giddiness; Z79.82 Long term (current) use of aspirin; I50.9 Heart failure, unspecified; S09.90XA Unspecified injury of head, initial encounter; W18.39XA Other fall on same level, initial encounter; Y93.89 Activity, other specified; Y92.238 Other place in hospital as the place of occurrence of the external cause; E66.9 Obesity, unspecified; Z68.41 Body mass index [BMI] 40.0-44.9, adult; E87.5 Hyperkalemia; G47.33 Obstructive sleep apnea (adult) (pediatric); Z91.19 Patient's noncompliance with other medical treatment and regimen; Z99.89 Dependence on other enabling machines and devices; J44.1 Chronic obstructive pulmonary disease with (acute) exacerbation; Z77.110 Contact with and (suspected) exposure to air pollution
CPT/HCPCS: 36415; 70450-TC; 71010-TC; 80053; 82550; 83605; 83735; 84484; 85025; 85027; 86704; 86706; 86708; 86803; 87340; 93005; 93010; 99284-25; G0378

== ENCOUNTER 2017-05-24 10:19 | Day surgery (SDC) | payer OTHER ==
[2017-05-23 10:39] VITALS: BMI 38.7
[2017-05-24] MEDS ORDERED: HEPARIN NA (PORCINE) 5,000 UNITS/ML 1ML VIAL ONE (13:44)
[2017-05-24] MEDS ORDERED: LIDOCAINE HCL 1%, 10 MG/ML (20ML VIAL) ONE (13:44)
[2017-05-24] MEDS ORDERED: MIDAZOLAM HCL 2 MG/2 ML SINGLE DOSE VIAL ONE ×2 (13:58)
[2017-05-24] MEDS ORDERED: ceFAZolin SODIUM 1 GM VIAL IVPB ONE (14:10)
[2017-05-24] MEDS ORDERED: ceFAZolin SODIUM 1 GM VIAL ONE (14:13)
[2017-05-24] MEDS ORDERED: LIDOCAINE HCL 1%, 10 MG/ML (50 mL VIAL) IJ ONE (14:14)
--- NOTE | 2017-05-24 14:34 | OP ---
Operative Note - Note: Operative Date: 05/24/17 Pre-Operative Diagnosis: immature left avf Operation: Venogram, venoplasty left avf Post-Operative Diagnosis: Same as Pre-op Surgeon: Maikol Hernandez Anesthesia: Fractional Estimated Blood Loss (mls): 5 Operative Report Dictated: Yes
--- NOTE | 2017-05-24 14:35 | HP ---
Admitting History and Physical - Admission Chief Complaint: immature left avf - Past Medical History Cardiovascular: Yes: CHF (diastolic dysfunction), HTN, Hyperlipdemia Pulmonary: Yes: Sleep Apnea Renal/: Yes: Renal Inusuff, Hemodialysis Rheumatology: Yes: Other - Past Surgical History Past Surgical History: Yes: AV Fistula/Graft - Smoking History Smoking history: Never smoked Have you smoked in the past 12 months: No - Alcohol/Substance Use Hx Alcohol Use: Yes (SOCIALLY) Home Medications - Allergies Allergies/Adverse Reactions: Allergies Allergy/AdvReac Type Severity Reaction Status Date / Time No Known Allergies Allergy Verified 04/28/17 12:41 - Home Medications Home Medications: Ambulatory Orders Aspirin [ASA -] 81 mg PO DAILY 02/20/17 Labetalol HCl [Normodyne -] 300 mg PO BID 05/08/17 Physical Examination Vital Signs: Vital Signs Temperature 97.5 F L 05/24/17 10:45 Pulse Rate 58 L 05/24/17 10:45 Respiratory Rate 20 05/24/17 10:45 Blood Pressure 153/93 05/24/17 10:45 O2 Sat by Pulse Oximetry (%) 97 05/24/17 10:45 Constitutional: Yes: Well Nourished Eyes: Yes: WNL HENT: Yes: WNL Neck: Yes: WNL Cardiovascular: Yes: WNL Respiratory: Yes: WNL Gastrointestinal: Yes: WNL Breast(s): Yes: WNL Musculoskeletal: Yes: WNL Extremities: Yes: WNL Labs: CBC, BMP 05/24/17 10:27 Assessment/Plan Immature left avf 1 for balloon maturation today
[2017-05-24 15:06] VITALS: TEMP 98.1
[2017-05-24 17:03] VITALS: BP 147/74; PULSE 64
== END 2017-05-24 16:00 | disposition home or self-care (01) ==
LOC: JASU-SURG 10:19
PROVIDERS: ATTEND Surgery Vascular Surgery
PROC: 057F3ZZ Dilation of Left Cephalic Vein, Percutaneous Approach (ICD-10-PCS; principal; 2017-05-24 12:45)
DX: T82.858A Stenosis of other vascular prosthetic devices, implants and grafts, initial encounter (principal); I12.0 Hypertensive chronic kidney disease with stage 5 chronic kidney disease or end stage renal disease; N18.6 End stage renal disease; Z99.2 Dependence on renal dialysis; I50.30 Unspecified diastolic (congestive) heart failure; E78.5 Hyperlipidemia, unspecified; G47.30 Sleep apnea, unspecified
CPT/HCPCS: 36415; 76000-TC; 84132; 94760; J1644

== ENCOUNTER 2017-07-12 09:14 | Inpatient (IN) | payer OTHER ==
--- NOTE | 2017-07-12 09:50 | PDOC ---
History of Present Illness <Rachna Puente - Last Filed: 07/12/17 14:22> - History of Present Illness Initial Comments: 07/12/17 09:44 57 M with h/o DM, ESRD on MWF HD presents to ER with L AVF malfunction. Pt states that he was unable to have HD today because the staff was unable to access his AVF. He reports getting stuck multiple times with no blood return. He was last dialyzed on Monday, 2 days ago. He reports they had some difficulty initially on Monday, but they were eventually able to perform HD. The AVF was placed in February and only recently became mature. He was previously dialyzed via vas-cath. Pt denies any complaints at this time. No CP/SOB. No swelling. <Fuad Chinchilla - Last Filed: 07/13/17 09:14> - General Chief Complaint: Dialysis Shunt Problem Stated Complaint: (PCP SENT) Time Seen by Provider: 07/12/17 09:33 Past History <Rachna Puente - Last Filed: 07/12/17 14:22> - Past Medical History COPD: No CHF: Yes (Possible but Patient denies) Diabetes: No Dialysis: Yes (M-W-F) HTN: Yes Thyroid Disease: No - Psycho/Social/Smoking Cessation Hx Anxiety: No Suicidal Ideation: No Smoking History: Never smoked Have you smoked in the past 12 months: No Hx Alcohol Use: No Drug/Substance Use Hx: No Substance Use Type: None Hx Substance Use Treatment: No <Fuad Chinchilla - Last Filed: 07/13/17 09:14> - Past Medical History Allergies/Adverse Reactions: Allergies Allergy/AdvReac Type Severity Reaction Status Date / Time No Known Allergies Allergy Verified 07/12/17 09:22 Home Medications: Ambulatory Orders Aspirin [ASA -] 81 mg PO DAILY 02/20/17 Labetalol HCl [Normodyne -] 300 mg PO BID 05/08/17 Sevelamer Carbonate [Renvela] 1,600 mg PO CM 07/12/17 Review of Systems - Review of Systems Comments:: 07/12/17 09:48 "GENERAL/CONSTITUTIONAL: No fever or chills. No weakness. HEAD, EYES, EARS, NOSE AND THROAT: No change in vision. No ear pain or discharge. No sore throat. CARDIOVASCULAR: No chest pain or shortness of breath. RESPIRATORY: No cough, wheezing, or hemoptysis. GASTROINTESTINAL: No nausea, vomiting, diarrhea or constipation. GENITOURINARY: No dysuria, frequency, or change in urination. MUSCULOSKELETAL: No joint or muscle swelling or pain. No neck or back pain. SKIN: No rash NEUROLOGIC: No headache, vertigo, loss of consciousness, or change in strength/ sensation. ENDOCRINE: No increased thirst. No abnormal weight change. HEMATOLOGIC/LYMPHATIC: No anemia, easy bleeding, or history of blood clots. ALLERGIC/IMMUNOLOGIC: No hives or skin allergy. " <AmorFuad - Last Filed: 07/13/17 09:14> *Physical Exam - Vital Signs Last Vital Signs Temp Pulse Resp BP Pulse Ox 97.5 F L 61 16 164/94 100 07/12/17 09:19 07/12/17 12:23 07/12/17 12:23 07/12/17 12:23 07/12/17 12:23 <Vickie Puenteomilsy - Last Filed: 07/12/17 14:22> - Vital Signs Last Vital Signs Temp Pulse Resp BP Pulse Ox 97.5 F L 61 20 152/98 99 07/12/17 09:19 07/12/17 09:19 07/12/17 09:19 07/12/17 09:19 07/12/17 09:19 - Physical Exam Comments: 07/12/17 09:49 "GENERAL: Awake, alert, and fully oriented, in no acute distress HEAD: No signs of trauma EYES: PERRLA, EOMI, sclera anicteric, conjunctiva clear ENT: Auricles normal inspection, hearing grossly normal, nares patent, oropharynx clear without exudates. Moist mucosa NECK: Normal ROM, supple, no lymphadenopathy, JVD, or masses LUNGS: Breath sounds equal, clear to auscultation bilaterally. No wheezes, and no crackles HEART: Regular rate and rhythm, normal S1 and S2, no murmurs, rubs or gallops ABDOMEN: Soft, nontender, normoactive bowel sounds. No guarding, no rebound. No masses EXTREMITIES: LUE AV fistula with weakly palpable thrill, not compressible, distal pulses intact NEUROLOGICAL: Cranial nerves II through XII grossly intact. Normal speech, normal gait SKIN: Warm, Dry, normal turgor, no rashes or lesions noted. " <Fuad Chinchilla - Last Filed: 07/13/17 09:14> ED Treatment Course - LABORATORY CBC & Chemistry Diagram: 07/12/17 09:45 07/12/17 09:45 - ADDITIONAL ORDERS Additional order review: Laboratory Results 07/12/17 07/12/17 07/12/17 09:45 09:45 09:45 INR 1.05 PTT (Actin FS) 30.6 Sodium 136 Potassium 5.2 H D Chloride 96 L Carbon Dioxide 28 Anion Gap 12 BUN 70 H D Creatinine 12.8 H* D Creat Clearance w eGFR 4.08 Random Glucose 84 Calcium 8.9 Total Bilirubin 0.5 AST 15 ALT 17 D Alkaline Phosphatase 83 Total Protein 7.2 Albumin 3.6 Blood Type O POSITIVE Antibody Screen Negative 07/12/17 09:45 RBC 3.72 L MCV 93.9 MCHC 32.9 RDW 16.5 H D MPV 8.1 Neutrophils % 54.5 Lymphocytes % 24.6 D Monocytes % 10.9 H Eosinophils % 6.9 H Basophils % 3.1 H D <Rachna Puente - Last Filed: 07/12/17 14:22> - LABORATORY CBC & Chemistry Diagram: 07/12/17 09:45 07/12/17 19:00 - RADIOLOGY Radiology Studies Ordered: Category Date Time Status CHEST X-RAY PORTABLE* [RAD] Stat Radiology 07/12/17 09:37 Ordered DUPLEX VASCUL US-1 ARM [US] Stat Ultrasound 07/12/17 09:42 Ordered <Fuad Chinchilla - Last Filed: 07/13/17 09:14> Medical Decision Making - Medical Decision Making 07/12/17 14:22 First call placed to Dr. Her at 14:22. Awaiting call back. <Rachna Puente - Last Filed: 07/12/17 14:22> - Medical Decision Making 07/12/17 09:50 57 M with L AVF malfunction. Pt last dialyzed 2 days ago, with no acute complaints. - Labs, EKG - AVF ultrasound - Vascular consult 07/12/17 14:[address] Hernandez, who believes AVF is working properly. Pt on schedule to be dialyzed today. Admitted to Dr. Darby <Fuad Chinchilla - Last Filed: 07/13/17 09:14> *DC/Admit/Observation/Transfer <Rachna Puente - Last Filed: 07/12/17 14:22> - Discharge Dispostion Admit: Yes - Attestations Physician Attestion: 07/13/17 09:14 I, Dr. Fuad Chinchilla MD, attest that this document has been prepared under my direction and personally reviewed by me in its entirety. I further attest, that it accurately reflects all work, treatment, procedures and medical decision -making performed by me. <Fuad Chinchilla - Last Filed: 07/13/17 09:14> Diagnosis at time of Disposition: Dialysis procedure
[2017-07-12 09:56] LABS: MCH 30.9 pg (25.7-33.7); MCHC 32.9 g/dl (32.0-35.9); MEAN CELL VOLUME 93.9 fl (80-96); MEAN PLT VOLUME 8.1 fl (7.5-11.1); PLATELET COUNT 162 K/MM3 (134-434); RDW 16.5 % (11.9-15.9); WHITE BLOOD COUNT 5.3 K/mm3 (4.0-10.0)
[2017-07-12 10:07] LABS: BASOPHIL 3.1 % (0-2.0); EOSINOPHIL 6.9 % (0-4.5); NEUTROPHILS 54.5 % (42.8-82.8)
[2017-07-12 10:21] LABS: ALBUMIN 3.6 g/dl (3.4-5.0); ANION GAP 12 (8-16); BILIRUBIN,TOTAL 0.5 mg/dL (0.2-1.0); CALCIUM 8.9 mg/dL (8.5-10.1); CO2 28 mmol/L (21-32); GLUCOSE,RANDOM 84 mg/dL (74-106); SGPT/ALT 17 U/L (12-78); TOT PROT 7.2 g/dl (6.4-8.2)
[2017-07-12 10:25] LABS: INR 1.05 (0.82-1.09); PROTHROMBIN TIME (PATIENT) 11.6 SEC (9.98-11.88)
[2017-07-12 10:27] LABS: ACTIVATED PTT 30.6 SECONDS (26.9-34.4)
[2017-07-12 10:31] LABS: ALK PHOS 83 U/L (45-117)
[2017-07-12 11:05] LABS: BASOPHIL %. 1 % (0-2.0); PLATELET ESTIMATE ADEQUATE (NORMAL); POLYCHROMASIA 1+; SGOT/AST 15 U/L (15-37); TOTAL CELLS COUNTED 100
[2017-07-12 11:06] LABS: ANISOCYTOSIS 1+; CREATININE 12.8 mg/dL (0.7-1.3); MACROCYTOSIS FEW; MICROCYTOSIS FEW
--- NOTE | 2017-07-12 11:54 | EKG ---
Test Reason : Blood Pressure : / mmHG Vent. Rate : 056 BPM Atrial Rate : 056 BPM P-R Int : 214 ms QRS Dur : 104 ms QT Int : 512 ms P-R-T Axes : 045 -06 026 degrees QTc Int : 494 ms SINUS BRADYCARDIA WITH 1ST DEGREE A-V BLOCK POSSIBLE LEFT ATRIAL ENLARGEMENT LEFT VENTRICULAR HYPERTROPHY CANNOT RULE OUT SEPTAL INFARCT , AGE UNDETERMINED ABNORMAL ECG WHEN COMPARED WITH ECG OF 28-APR-2017 12:28, MINIMAL CRITERIA FOR SEPTAL INFARCT ARE NOW PRESENT Confirmed by MICHELLE IKNNEY MD ([id number]) on 07/12/2017 11:54:10 AM Referred By: Confirmed By:MICHELLE KINNEY MD
[2017-07-12 15:31] VITALS: BMI 36.6
--- NOTE | 2017-07-12 17:58 | CONSULT ---
Consult Consult Specialty:: Nephrology Reason for Consultation:: ESRD - History of Present Illness Chief Complaint: sent in from HD as they could not cannulate fistula History of Present Illness: Pt is a 57 year old male with pmhx of esrd on HD who I sent in from HD today as they were unable to canulate his fistula. He is awake and alert. He denies chest pain or shortness of breath. He has history of ESRD, HTN and DM. He denies fevers or chills. Fistula has thrill and bruit. He does complain of lower extremity edema. He got to HD at [facility]. - History Source History Provided By: Patient, Medical Record - Past Medical History Cardio/Vascular: Yes: CHF (diastolic dysfunction), HTN, Hyperlipdemia Pulmonary: Yes: Sleep Apnea Renal/: Yes: Renal Inusuff, Hemodialysis Rheumatology: Yes: Other - Past Surgical History Past Surgical History: Yes: AV Fistula/Graft - Alcohol/Substance Use Hx Alcohol Use: No - Smoking History Smoking history: Never smoked Have you smoked in the past 12 months: No Home Medications - Allergies Allergies/Adverse Reactions: Allergies Allergy/AdvReac Type Severity Reaction Status Date / Time No Known Allergies Allergy Verified 07/12/17 09:22 - Home Medications Home Medications: Ambulatory Orders Aspirin [ASA -] 81 mg PO DAILY 02/20/17 Labetalol HCl [Normodyne -] 300 mg PO BID 05/08/17 Sevelamer Carbonate [Renvela] 1,600 mg PO CM 07/12/17 Family Disease History - Family Disease History Family History: Denies Review of Systems - Review of Systems Constitutional: reports: No Symptoms Eyes: reports: No Symptoms HENT: reports: No Symptoms Neck: reports: No Symptoms Cardiovascular: reports: No Symptoms Respiratory: reports: No Symptoms Gastrointestinal: reports: No Symptoms Genitourinary: reports: No Symptoms Musculoskeletal: reports: No Symptoms Integumentary: reports: No Symptoms Neurological: reports: No Symptoms Endocrine: reports: No Symptoms Hematology/Lymphatic: reports: No Symptoms Psychiatric: reports: No Symptoms Physical Exam Vital Signs: Vital Signs Temperature 97.5 F L 07/12/17 09:19 Pulse Rate 60 07/12/17 17:30 Respiratory Rate 18 07/12/17 17:30 Blood Pressure 161/102 07/12/17 17:30 O2 Sat by Pulse Oximetry (%) 98 07/12/17 14:15 Constitutional: Yes: Calm Eyes: Yes: Conjunctiva Clear HENT: Yes: Atraumatic Neck: Yes: Supple Cardiovascular: Yes: S1, S2 Respiratory: Yes: CTA Bilaterally Gastrointestinal: Yes: Soft Renal/: Yes: WNL Musculoskeletal: Yes: WNL Extremities: Yes: Other (fistula with thrill and bruit) Neurological: Yes: Oriented Psychiatric: Yes: Oriented Labs: Laboratory Tests 07/12/17 07/12/17 07/12/17 09:45 09:45 15:45 Hgb 11.5 L Sodium 136 Potassium 5.2 H D Chloride 96 L Carbon Dioxide 28 Anion Gap 12 BUN 70 H D Creatinine 12.8 H* D Hepatitis A Ab Total Hep Bs Antigen Hep Bs Antibody Hep B Core Total Ab Hepatitis C Antibody Pending 07/12/17 15:45 Hgb Sodium Potassium Chloride Carbon Dioxide Anion Gap BUN Creatinine Hepatitis A Ab Total Pending Hep Bs Antigen Pending Hep Bs Antibody Pending Hep B Core Total Ab Pending Hepatitis C Antibody Imaging - Results Chest X-ray: Report Reviewed Ultrasound: Report Reviewed Problem List - Problems (1) ESRD (end stage renal disease) on dialysis Code(s): N18.6 - END STAGE RENAL DISEASE Z99.2 - DEPENDENCE ON RENAL DIALYSIS (2) HTN (hypertension) Code(s): I10 - ESSENTIAL (PRIMARY) HYPERTENSION Qualifiers: Hypertension type: essential hypertension Qualified Code(s): I10 - Essential (primary) hypertension (3) Malfunction of arteriovenous shunt Code(s): T82.591A - [facility] COMPL OF SURGICALLY CREATED ARTERIOVENOUS SHUNT, INIT (4) Malfunction of arteriovenous dialysis fistula Code(s): T82.590A - [facility] COMPL OF SURGICALLY CREATED ARTERIOVENOUS FISTULA, INIT Assessment/Plan Impression 1. AV fistula malfunction with stenosis 2. ESRD 3. HTN 4. DM 5. obesity 6. anemia 7. hyperkalemia Plan - reviewed ultrasound - discussed with vascular - were were able to use the fistula for HD - arranged for HD in hospital - will treat hyperkalemia with HD Dr Mancia
[2017-07-12 19:50] LABS: ANION GAP 11 (8-16); CALCIUM 8.9 mg/dL (8.5-10.1); CO2 30 mmol/L (21-32); CREATININE 5.9 mg/dL (0.7-1.3); GLUCOSE,RANDOM 109 mg/dL (74-106)
[2017-07-12] MEDS: LABETALOL HCL 100 MG TABLET (FP) PO SCH (21:56)
[2017-07-12] MEDS: SEVELAMER CARBONATE 800 MG TAB (FP) PO SCH (21:58)
[2017-07-13] MEDS: SEVELAMER CARBONATE 800 MG TAB (FP) PO SCH ×3 (08:26→17:53)
[2017-07-13] MEDS: ASPIRIN 81 MG CHEWABLE TABLETS PO SCH (09:34)
[2017-07-13] MEDS: LABETALOL HCL 100 MG TABLET (FP) PO SCH ×2 (09:34→22:03)
[2017-07-13 09:43] LABS: ANION GAP 9 (8-16); CALCIUM 8.9 mg/dL (8.5-10.1); CO2 32 mmol/L (21-32); GLUCOSE,RANDOM 117 mg/dL (74-106)
--- NOTE | 2017-07-13 09:48 | HP ---
Admitting History and Physical - Primary Care Physician PCP: Kaelyn Her - Admission Chief Complaint: unable to access the left AVF History of Present Illness: sent for failure to access the left AVF at outpt dialysis unit. Denies any complaints He was unable to get dialyzed in the outpt unit. No pain, shortness of breath, chest pain History Source: Patient Limitations to Obtaining History: No Limitations - Past Medical History Cardiovascular: Yes: CHF (diastolic dysfunction), HTN, Hyperlipdemia Pulmonary: Yes: Sleep Apnea Renal/: Yes: Renal Inusuff, Hemodialysis Rheumatology: Yes: Other - Past Surgical History Past Surgical History: Yes: AV Fistula/Graft - Smoking History Smoking history: Never smoked Have you smoked in the past 12 months: No - Alcohol/Substance Use Hx Alcohol Use: No Home Medications - Allergies Allergies/Adverse Reactions: Allergies Allergy/AdvReac Type Severity Reaction Status Date / Time No Known Allergies Allergy Verified 07/12/17 09:22 - Home Medications Home Medications: Ambulatory Orders Aspirin [ASA -] 81 mg PO DAILY 02/20/17 Labetalol HCl [Normodyne -] 300 mg PO BID 05/08/17 Sevelamer Carbonate [Renvela] 1,600 mg PO CM 07/12/17 Review of Systems - Review of Systems Constitutional: denies: Chills, Fever Cardiovascular: denies: Chest Pain, Shortness of Breath Gastrointestinal: denies: Abdominal Pain, Diarrhea, Nausea, Vomiting Physical Examination Vital Signs: Vital Signs Temperature 98 F 07/13/17 09:35 Pulse Rate 66 07/13/17 09:35 Respiratory Rate 18 07/13/17 09:35 Blood Pressure 151/89 07/13/17 09:35 O2 Sat by Pulse Oximetry (%) 98 07/12/17 21:00 Constitutional: Yes: No Distress, Calm Cardiovascular: Yes: Regular Rate and Rhythm Respiratory: Yes: CTA Bilaterally Gastrointestinal: Yes: Normal Bowel Sounds, Soft, Abdomen, Obese. No: Tenderness Extremities: Yes: Other (left AVF--) Edema: No Psychiatric: Yes: Alert, Oriented Labs: Laboratory Last Values WBC 5.3 K/mm3 (4.0-10.0) 07/12/17 09:45 RBC 3.72 M/mm3 (4.00-5.60) L 07/12/17 09:45 Hgb 11.5 GM/dL (11.7-16.9) L 07/12/17 09:45 Hct 34.9 % (35.4-49) L 07/12/17 09:45 MCV 93.9 fl (80-96) 07/12/17 09:45 MCH 30.9 pg (25.7-33.7) 07/12/17 09:45 MCHC 32.9 g/dl (32.0-35.9) 07/12/17 09:45 RDW 16.5 % (11.9-15.9) H D 07/12/17 09:45 Plt Count 162 K/MM3 (134-434) 07/12/17 09:45 MPV 8.1 fl (7.5-11.1) 07/12/17 09:45 Total Counted 100 07/12/17 09:45 Neutrophils % 54.5 % (42.8-82.8) 07/12/17 09:45 Neutrophils % (Manual) 55 % (42.8-82.8) 07/12/17 09:45 Lymphocytes % 24.6 % (8-40) D 07/12/17 09:45 Lymphocytes % (Manual) 20 % (8-40) 07/12/17 09:45 Monocytes % 10.9 % (3.8-10.2) H 07/12/17 09:45 Monocytes % (Manual) 15 % (3.8-10.2) H 07/12/17 09:45 Eosinophils % 6.9 % (0-4.5) H 07/12/17 09:45 Eosinophils % (Manual) 9 % (0-4.5) H 07/12/17 09:45 Basophils % 3.1 % (0-2.0) H D 07/12/17 09:45 Basophils % (Manual) 1 % (0-2.0) 07/12/17 09:45 Platelet Estimate Adequate (NORMAL) 07/12/17 09:45 Polychromasia 1+ 07/12/17 09:45 Anisocytosis 1+ 07/12/17 09:45 Microcytosis Few 07/12/17 09:45 Macrocytosis Few 07/12/17 09:45 INR 1.05 (0.82-1.09) 07/12/17 09:45 PTT (Actin FS) 30.6 SECONDS (26.9-34.4) 07/12/17 09:45 Sodium 135 mmol/L (136-145) L 07/13/17 08:15 Potassium 5.2 mmol/L (3.5-5.1) H D 07/13/17 08:15 Chloride 94 mmol/L (98-107) L 07/13/17 08:15 Carbon Dioxide 32 mmol/L (21-32) 07/13/17 08:15 Anion Gap 9 (8-16) 07/13/17 08:15 BUN 48 mg/dL (7-18) H D 07/13/17 08:15 Creatinine 9.5 mg/dL (0.7-1.3) H* D 07/13/17 08:15 Creat Clearance w eGFR 4.08 (>60) 07/12/17 09:45 Random Glucose 117 mg/dL (74-106) H 07/13/17 08:15 Calcium 8.9 mg/dL (8.5-10.1) 07/13/17 08:15 Total Bilirubin 0.5 mg/dL (0.2-1.0) 07/12/17 09:45 AST 15 U/L (15-37) 07/12/17 09:45 ALT 17 U/L (12-78) D 07/12/17 09:45 Alkaline Phosphatase 83 U/L (45-117) 07/12/17 09:45 Total Protein 7.2 g/dl (6.4-8.2) 07/12/17 09:45 Albumin 3.6 g/dl (3.4-5.0) 07/12/17 09:45 Blood Type O POSITIVE 07/12/17 09:45 Antibody Screen Negative 07/12/17 09:45 Imaging - Results Chest X-ray: Image Reviewed (no infiltrates) Ultrasound: Report Reviewed EKG: Image Reviewed (sinus bradycardia) Problem List - Problems (1) Dialysis procedure Code(s): Z99.2 - DEPENDENCE ON RENAL DIALYSIS (2) Malfunction of arteriovenous dialysis fistula Code(s): T82.590A - [facility] COMPL OF SURGICALLY CREATED ARTERIOVENOUS FISTULA, INIT (3) Malfunction of arteriovenous shunt Code(s): T82.591A - [facility] COMPL OF SURGICALLY CREATED ARTERIOVENOUS SHUNT, INIT (4) ESRD (end stage renal disease) on dialysis Code(s): N18.6 - END STAGE RENAL DISEASE Z99.2 - DEPENDENCE ON RENAL DIALYSIS Assessment/Plan PLAN Pt was dialyzed yesterday 3 1/2 hours I spoke with both Dr Hernandez- vascular and Dr Mancia-Renal- there was difficulty during dialysis yesterday. Alarm was sounding off. potassium repeated today 5.2 and creatinine is elevated continue with home meds Dialysis today and plan for venogram tomorrow OOB daily
--- NOTE | 2017-07-13 09:49 | DS ---
Physical Examination Vital Signs: Vital Signs Temperature 98 F 07/13/17 09:35 Pulse Rate 66 07/13/17 09:35 Respiratory Rate 18 07/13/17 09:35 Blood Pressure 151/89 07/13/17 09:35 O2 Sat by Pulse Oximetry (%) 98 07/12/17 21:00 Discharge Summary Reason For Visit: END STAGE RENAL FAILURE ON DIALYSIS Current Active Problems Dialysis procedure (Acute) Malfunction of arteriovenous dialysis fistula (Acute) Malfunction of arteriovenous shunt (Acute) - Instructions Referrals: Ed Boyer MD [Primary Care Provider] - - Home Medications Comprehensive Discharge Medication List: Ambulatory Orders Aspirin [ASA -] 81 mg PO DAILY 02/20/17 Labetalol HCl [Normodyne -] 300 mg PO BID 05/08/17 Sevelamer Carbonate [Renvela] 1,600 mg PO CM 07/12/17
[2017-07-13 09:55] LABS: CREATININE 9.5 mg/dL (0.7-1.3)
--- NOTE | 2017-07-13 10:30 | PN ---
Progress Note (short form) - Note Progress Note: Vascular Surgery Discussed case with renal. Could only do HD for three hours yest. Today pt still has elevated K. They will do HD again today. Will plan for venogram sultana at 10am, because pt is having elevated venous pressures and poor clearance. NPO past midnight Maikol fox DO
[2017-07-13] MEDS ORDERED: LIDOCAINE HCL 2% JELLY (30 ML/TUBE) TP ONE (14:37)
--- NOTE | 2017-07-13 15:44 | PN ---
Progress Note, Physician History of Present Illness: Pt seen and examined at bedside. He is awake and alert. He denies shortness of breath. - Current Medication List Current Medications: Active Medications Aspirin (Asa -) 81 mg PO DAILY [facility] Last Admin: 07/13/17 09:34 Dose: 81 mg Labetalol HCl (Normodyne -) 300 mg PO BID [facility] Last Admin: 07/13/17 09:34 Dose: 300 mg Sevelamer Carbonate (Renvela -) 1,600 mg PO CM [facility] Last Admin: 07/13/17 12:29 Dose: 1,600 mg - Objective Vital Signs: Vital Signs Temperature 97.7 F 07/13/17 14:00 Pulse Rate 63 07/13/17 14:00 Respiratory Rate 17 07/13/17 14:00 Blood Pressure 154/91 07/13/17 14:00 O2 Sat by Pulse Oximetry (%) 98 07/13/17 09:00 Constitutional: Yes: Calm Eyes: Yes: Conjunctiva Clear HENT: Yes: Atraumatic Neck: Yes: Supple Cardiovascular: Yes: S1, S2 Respiratory: Yes: CTA Bilaterally Genitourinary: Yes: WNL Musculoskeletal: Yes: WNL Extremities: Yes: Other (fistula with thrill and bruit) Neurological: Yes: Oriented Psychiatric: Yes: Oriented Labs: INR, PTT INR 1.05 (0.82-1.09) 07/12/17 09:45 Problem List - Problems (1) ESRD (end stage renal disease) on dialysis Code(s): N18.6 - END STAGE RENAL DISEASE Z99.2 - DEPENDENCE ON RENAL DIALYSIS (2) HTN (hypertension) Code(s): I10 - ESSENTIAL (PRIMARY) HYPERTENSION Qualifiers: Hypertension type: essential hypertension Qualified Code(s): I10 - Essential (primary) hypertension (3) Malfunction of arteriovenous shunt Code(s): T82.591A - [facility] COMPL OF SURGICALLY CREATED ARTERIOVENOUS SHUNT, INIT (4) Malfunction of arteriovenous dialysis fistula Code(s): T82.590A - [facility] COMPL OF SURGICALLY CREATED ARTERIOVENOUS FISTULA, INIT Assessment/Plan Current Medications Generic Name Dose Route Start Last Admin Trade Name Freq PRN Reason Stop Dose Admin Aspirin 81 mg 07/13/17 10:00 07/13/17 09:34 Asa - PO 81 mg DAILY [facility] Administration Labetalol HCl 300 mg 07/12/17 22:00 07/13/17 09:34 Normodyne - PO 300 mg BID [facility] Administration Sevelamer Carbonate 1,600 mg 07/12/17 21:45 07/13/17 12:29 Renvela - PO 1,600 mg CM [facility] Administration Impression 1. AV fistula malfunction with stenosis 2. ESRD 3. HTN 4. DM 5. obesity 6. anemia 7. hyperkalemia Plan - will dialyze again today as his potassium is elevated - could not get a blood flow rate over 300 on HD yesterday. I discussed this with vascular and he will go for venogram tomorrow - cont home meds - OR in am - will likely need HD on Monday again. He has a MWF schedule Dr Mancia
[2017-07-13] MEDS ORDERED: HEPARIN NA (PORCINE) 5,000 UNITS/ML 1ML VIAL IVPUSH ONE (15:45)
[2017-07-13] MEDS: HEPARIN NA (PORCINE) 5,000 UNITS/ML 1ML VIAL IVPUSH SCH ×3 (16:55→22:04)
[2017-07-14] MEDS: SEVELAMER CARBONATE 800 MG TAB (FP) PO SCH ×4 (07:56→17:13)
[2017-07-14] MEDS: LABETALOL HCL 100 MG TABLET (FP) PO SCH ×2 (09:05→21:30)
[2017-07-14] MEDS: ASPIRIN 81 MG CHEWABLE TABLETS PO SCH (09:05)
[2017-07-14] MEDS ORDERED: ceFAZolin SODIUM 1 GM VIAL IVPB ONE (10:47)
--- NOTE | 2017-07-14 11:09 | OP ---
Operative Note - Note: Operative Date: 07/14/17 Pre-Operative Diagnosis: stenosis left avf Operation: venogram, venoplasty left avf Post-Operative Diagnosis: Same as Pre-op Surgeon: Maikol Hernandez Anesthesia: Fractional Estimated Blood Loss (mls): 5 Operative Report Dictated: Yes
[2017-07-14] MEDS ORDERED: ONDANSETRON 4 MG/2 ML VIAL IVPUSH PRN (11:12)
--- NOTE | 2017-07-14 12:17 | OP ---
DATE OF OPERATION: 07/14/2017 PREOPERATIVE DIAGNOSIS: Stenosis, left arteriovenous fistula. POSTOPERATIVE DIAGNOSIS: Stenosis, left arteriovenous fistula. PROCEDURE: Venogram venoplasty of left arteriovenous fistula. SURGEON: Maikol Olivo MD ANESTHESIA: Fractional. BLOOD LOSS: 5 mL. INDICATIONS: The patient is a 57-year-old male who had difficult cannulation and dialysis and poor flow with poor clearance. It was found that he would need a venogram. Patient was consented for the procedure understanding all risks, benefits, and alternatives, and then taken to the operating room. DESCRIPTION OF PROCEDURE: Once in the operating room, he was placed on the operating table in the supine manner, and the area of the left arm was prepped and draped in a sterile surgical manner. We then under ultrasound guidance visualized a proximal AV fistula above the anastomosis. We injected 5 mL of lidocaine 1%. We then took our micropuncture needle and punctured the fistula. Micropuncture wire was inserted, and a traditional short 6-Italian sheath was inserted. Then, 2000 units of IV heparin were administered to the patient. We then shot a venogram by hand injection through the sheath showing that the fistula was patent, but may not be completely mature. At this point, we placed a 0.035 floppy guidewire up into the upper arm, and we then went ahead and took an 8 x 8 [place] balloon and ballooned the entire fistula from the antecubital space to close to the anastomosis. Once completed, there was a good thrill in our AV fistula, and we went ahead and used a 4-0 Biosyn stitch, and a figure-of-8 stitch was placed around our sheath, and the sheath was pulled. The area was wet and dried, and Dermabond was placed. The patient tolerated the procedure with no complications. Patient transferred to PACU in stable condition. MAIKOL OLIVO DO [id number]
[2017-07-14 13:26] LABS: ANION GAP 10 (8-16); CALCIUM 9.3 mg/dL (8.5-10.1); CO2 31 mmol/L (21-32); GLUCOSE,RANDOM 117 mg/dL (74-106)
[2017-07-14 13:48] LABS: CREATININE 7.8 mg/dL (0.7-1.3)
--- NOTE | 2017-07-14 13:56 | PN ---
Progress Note (short form) - Note Progress Note: patient seen and examined. status post venoplasty/ venogram of left AV fistula today Denies pain Comfortable Chart reviewed Vital Signs Temp 98 F 07/14/17 12:11 Pulse 74 07/14/17 12:11 Resp 18 07/14/17 12:11 BP 154/92 07/14/17 12:11 Pulse Ox 98 07/14/17 12:11 Intake & Output 07/13/17 07/14/17 07/14/17 23:59 11:59 23:59 Intake Total 1400 100 Output Total 2 5 Balance 1398 95 Weight 270 lb 9.6 oz Intake: IV 100 Oral 1400 Output: Urine 2 Void 2 Estimated Blood Loss 5 Other: Voiding Method Toilet Toilet Bowel Movement No # Bowel Movements 0 Weight Measurement Method Chair Scale Active Medications Aspirin (Asa -) 81 mg PO DAILY [facility] Fentanyl (Sublimaze Injection -) 25 mcg IVPUSH [id number] PRN PRN Reason: PAIN Stop: 07/17/17 11:13 Labetalol HCl (Normodyne -) 300 mg PO BID [facility] Ondansetron HCl (Zofran Injection) 4 mg IVPUSH Q6H PRN PRN Reason: NAUSEA AND/OR VOMITING Stop: 07/14/17 17:13 Sevelamer Carbonate (Renvela -) 1,600 mg PO CM [facility] Last Admin: 07/14/17 13:42 Dose: Not Given CBC, BMP 07/12/17 09:45 07/14/17 12:25 Physical Examination Constitutional: Yes: No Distress, Calm and comfortable Cardiovascular: Yes: Regular Rate and Rhythm Respiratory: Yes: CTA Bilaterally Gastrointestinal: Yes: Normal Bowel Sounds, Soft, Abdomen, Obese. No: Tenderness Extremities: Yes: Other (left AVF--) Edema: No Psychiatric: Yes: Alert, Oriented Imaging - Results Chest X-ray: Image Reviewed (no infiltrates) Ultrasound: Report Reviewed EKG: Image Reviewed (sinus bradycardia) Problem List - Problems (1) Dialysis procedure Code(s): Z99.2 - DEPENDENCE ON RENAL DIALYSIS (2) Malfunction of arteriovenous dialysis fistula Code(s): T82.590A - [facility] COMPL OF SURGICALLY CREATED ARTERIOVENOUS FISTULA, INIT (3) Malfunction of arteriovenous shunt Code(s): T82.591A - [facility] COMPL OF SURGICALLY CREATED ARTERIOVENOUS SHUNT, INIT (4) ESRD (end stage renal disease) on dialysis Code(s): N18.6 - END STAGE RENAL DISEASE Z99.2 - DEPENDENCE ON RENAL DIALYSIS Assessment/Plan clinically stable chart reviewed Discussed with Dr. Quiros today Hemodialysis tomorrow--- anticipate discharge home tomorrow after that All above discussed with patient patient in agreement We will follow
--- NOTE | 2017-07-14 20:05 | PN ---
Progress Note (short form) - Note Progress Note: Current Medications Aspirin (Asa -) 81 mg PO DAILY [facility] Fentanyl (Sublimaze Injection -) 25 mcg IVPUSH [id number] PRN PRN Reason: PAIN Stop: 07/17/17 11:13 Labetalol HCl (Normodyne -) 600 mg PO BID [facility] Sevelamer Carbonate (Renvela -) 1,600 mg PO [facility] Last Admin: 07/14/17 17:13 Dose: 1,600 mg Last Vital Signs Temp Pulse Resp BP Pulse Ox 97.6 F 74 18 154/92 98 07/14/17 14:00 07/14/17 12:11 07/14/17 12:11 07/14/17 12:11 07/14/17 12:11 CBC, BMP 07/12/17 09:45 07/14/17 12:25 IMP- ESRD no fluid overload s/p venogram and angioplasty Plan- HD tomorrow before d/c
[2017-07-14] MEDS ORDERED: LABETALOL HCL 100 MG TABLET (FP) PO SCH (22:00)
[2017-07-15] MEDS: SEVELAMER CARBONATE 800 MG TAB (FP) PO SCH ×2 (07:28→12:43)
[2017-07-15] MEDS ORDERED: ASPIRIN 81 MG CHEWABLE TABLETS PO SCH (10:00)
--- NOTE | 2017-07-15 12:20 | DS ---
Physical Examination Vital Signs: Vital Signs Temperature 97.7 F 07/15/17 07:27 Pulse Rate 60 07/15/17 10:45 Respiratory Rate 18 07/15/17 10:45 Blood Pressure 150/101 07/15/17 10:45 O2 Sat by Pulse Oximetry (%) 97 07/15/17 08:00 Findings/Remarks: pt seen in dialysis avf working well no complains Constitutional: Yes: No Distress, Calm Eyes: Yes: Conjunctiva Clear Neck: Yes: Supple Cardiovascular: Yes: Regular Rate and Rhythm Respiratory: Yes: CTA Bilaterally Gastrointestinal: Yes: Soft Edema: No Neurological: Yes: Alert Labs: CBC, BMP 07/14/17 12:25 Discharge Summary Reason For Visit: END STAGE RENAL FAILURE ON DIALYSIS Current Active Problems Dialysis procedure (Acute) Malfunction of arteriovenous dialysis fistula (Acute) Malfunction of arteriovenous shunt (Acute) Hospital Course: patient admitted for non functioning avf status post venoplasty/ venogram of left AV fistula - working well stable for d/c meds reconcilled discussed with Dr. Quiros Pt to follow outpt dialysis as scheduled f/u with Dr. Boyer in office in 2 weeks. Condition: Stable - Instructions Referrals: Ed Boyer MD [Primary Care Provider] - Disposition: HOME - Home Medications Comprehensive Discharge Medication List: Ambulatory Orders Aspirin [ASA -] 81 mg PO DAILY 02/20/17 Labetalol HCl [Normodyne -] 600 mg PO BID 05/08/17 Sevelamer Carbonate [Renvela -] 1,600 mg PO CM 07/12/17
[2017-07-15] MEDS: LABETALOL HCL 100 MG TABLET (FP) PO SCH (12:42)
[2017-07-15 12:51] VITALS: BP 148/90; PULSE 84; TEMP 98
== END 2017-07-15 13:20 | disposition home or self-care (01) | DRG 252 ==
LOC: JER 09:14 → JERBED 14:34 → J6S 17:20 → OBSVTOIN 07-13 10:10
PROVIDERS: ADMIT Internal Medicine; ATTEND Internal Medicine
PROC: 5A1D60Z (ICD-10-PCS; 2017-07-12)
PROC: 3E033GC Introduction of Other Therapeutic Substance into Peripheral Vein, Percutaneous Approach (ICD-10-PCS; 2017-07-14)
PROC: B50NYZZ Plain Radiography of Left Upper Extremity Veins using Other Contrast (ICD-10-PCS; 2017-07-14)
PROC: 037Y3ZZ Dilation of Upper Artery, Percutaneous Approach (ICD-10-PCS; principal; 2017-07-14 10:00)
DX: T82.858A Stenosis of other vascular prosthetic devices, implants and grafts, initial encounter (principal); N18.6 End stage renal disease; T82.41XA Breakdown (mechanical) of vascular dialysis catheter, initial encounter; I13.2 Hypertensive heart and chronic kidney disease with heart failure and with stage 5 chronic kidney disease, or end stage renal disease; Y83.8 Other surgical procedures as the cause of abnormal reaction of the patient, or of later complication, without mention of misadventure at the time of the procedure; Z99.2 Dependence on renal dialysis; G47.39 Other sleep apnea; E78.5 Hyperlipidemia, unspecified; D64.9 Anemia, unspecified; E87.5 Hyperkalemia; E66.8 Other obesity; Z68.36 Body mass index [BMI] 36.0-36.9, adult; I50.9 Heart failure, unspecified; Y92.89 Other specified places as the place of occurrence of the external cause
CPT/HCPCS: 36415; 71010-TC; 76000-TC; 80048; 80053; 85025; 85610; 85730; 86704; 86706; 86708; 86803; 86850; 86900; 86901; 87340; 93005; 93010; 93971; 94760; 99284-25; G0378; J1644

== ENCOUNTER 2017-12-17 06:07 | Emergency (ER) | payer OTHER ==
[2017-12-17 06:35] VITALS: BMI 37.3
--- NOTE | 2017-12-17 07:24 | PDOC ---
History of Present Illness - General Chief Complaint: Cold Symptoms Stated Complaint: COLD Time Seen by Provider: 12/17/17 07:24 - History of Present Illness Initial Comments: 57 year old M with PMH of ESRD and HTN presenting with cough, subjective, warmth and some myalgias for the past two days. The cough is dry and denies hemoptysis. He was unable to measure a fever at home. the myalgias are in his shoulders, back and upper chest. He is also complaining of some light ringing in his ears for the past three weeks that his PCP (Dr. Boyer) was [place] to evaluate [place]Denies SOB, direct chest pain, presyncopal sensation, nausea, vomiting, diarrhea, or other sick symptoms. 12/17/17 07:53 Past History - Past Medical History Allergies/Adverse Reactions: Allergies Allergy/AdvReac Type Severity Reaction Status Date / Time No Known Allergies Allergy Verified 12/17/17 06:29 Home Medications: Ambulatory Orders Aspirin [ASA -] 81 mg PO DAILY 02/20/17 Labetalol HCl [Normodyne -] 600 mg PO BID 05/08/17 Sevelamer Carbonate [Renvela -] 1,600 mg PO CM 07/12/17 Cinacalcet HCl [Sensipar] 1 tab PO DAILY 07/21/17 Lidocaine 5% Top. Ointment [Xylocaine 5% Top. Ointment -] 1 applic TP DAILY #1 tube 08/04/17 Oseltamivir Phosphate [Tamiflu -] 30 mg PO DAILY 5 Days #3 capsule 12/17/17 COPD: No CHF: Yes (Possible but Patient denies) Diabetes: No Dialysis: Yes (M-W-F) HTN: Yes Thyroid Disease: No - Suicide/Smoking/Psychosocial Hx Smoking History: Never smoked Have you smoked in the past 12 months: No Information on smoking cessation initiated: No Hx Alcohol Use: No Drug/Substance Use Hx: No Substance Use Type: None Hx Substance Use Treatment: No Review of Systems - Review of Systems Constitutional: Yes: Chills, Fever. No: Loss of Appetite HEENTM: No: Recent change in vision, Double Vision Respiratory: Yes: Cough. No: Shortness of Breath Cardiac (ROS): No: Chest Pain, Lightheadedness, Chest Tightness ABD/GI: No: Diarrhea, Nausea, Vomiting : No: Burning, Dysuria Musculoskeletal: Yes: Muscle Pain. No: Back Pain Integumentary: No: Bruising, Erythema, Rash Neurological: No: Headache, Numbness, Paresthesia *Physical Exam - Vital Signs Last Vital Signs Temp Pulse Resp BP Pulse Ox 99.0 F 78 20 117/74 95 12/17/17 06:29 12/17/17 06:29 12/17/17 06:29 12/17/17 06:29 12/17/17 06:29 - Physical Exam General Appearance: Yes: Nourished, Appropriately Dressed. No: Apparent Distress HEENT: positive: EOMI, COURTNEY, Normal Voice. negative: Normal ENT Inspection ( Nasal congestion) Neck: positive: Trachea midline, Normal Thyroid, Supple. negative: Tender, Rigid Respiratory/Chest: positive: Lungs Clear, Normal Breath Sounds. negative: Chest Tender, Respiratory Distress, Accessory Muscle Use Cardiovascular: positive: Regular Rhythm, Regular Rate Gastrointestinal/Abdominal: positive: Normal Bowel Sounds, Flat, Soft. negative : Tender Musculoskeletal: positive: Normal Inspection. negative: CVA Tenderness Extremity: positive: Normal Capillary Refill, Normal Inspection, Normal Range of Motion. negative: Tender Integumentary: positive: Normal Color, Dry, Warm Neurologic: positive: Fully Oriented, Alert, Normal Mood/Affect, Normal Response Medical Decision Making - Medical Decision Making 57 year old male with ESRD (M,W,F) presentign Flu A positive in our ED with cough, nasal congestin, subjective warmth, and myalgias. Otherwise well appearing with unremarkable PE so further workup can be deferred at the time. Given Oseltamivir 30 and will give ESRD dosing for 5 days (30 Mg after dialysis) . Will also give [facility] follow up. 12/17/17 08:03 *DC/Admit/Observation/Transfer Diagnosis at time of Disposition: Influenza A - Discharge Dispostion Disposition: HOME Condition at time of disposition: Improved Admit: No - Prescriptions Prescriptions: Oseltamivir Phosphate [Tamiflu -] 30 mg PO DAILY 5 Days #3 capsule - Referrals Referrals: [facility] [Provider Group] - Patient Instructions Printed Discharge Instructions: DI for H1N1 Influenza -- Adult Additional Instructions: You are positive for the flu. You need to take your oseltamavir once after each dialysis session this week. Please follow up with the [facility] on Monday for evaluation of the ringing in your ear. Please return if your symptoms do not start getting better in a few days. You can take Tylenol every 8 hours as needed for the fevers or pains. Also please return if you have worsening fevers, chills, nausea, vomiting, diarrhea, or other new symptoms. - Post Discharge Activity
[2017-12-17] MEDS ORDERED: OSELTAMIVIR PHOSPHATE 30 MG CAPSULE PO ONE (07:47)
--- NOTE | 2017-12-17 08:09 | PDOC ---
Attending Attestation - Resident Resident Name: Mary Anne Pedroza - ED Attending Attestation I have performed the following: I have examined & evaluated the patient, The case was reviewed & discussed with the resident, I agree w/resident's findings & plan, Exceptions are as noted - HPI HPI: 12/17/17 08:15 57yo male with cough, congestion, sore throat, achy since monday. Pt with hx of HTN and ESRD M/W/F. Pt did receive the flu shot this year. Pt with dry cough. No n/v/d. LUE av fistula. No other complaints. - Physicial Exam PE: 12/17/17 08:16 Gen: aaox3, dry cough Heart: +s1s2 reg lungs: cta b/l Abd: soft, obese, nt/nd Ext: LUE av fistula with bruit and thrill, mild edema to LE Neuro: no focal neuro deficits - Medical Decision Making 12/17/17 08:09 I, Dr. Lo Negron, DO, attest that this document has been prepared under my direction and personally reviewed by me in its entirety. I further attest, that it accurately reflects all work, treatment, procedures and medical decision -making performed by me. 12/17/17 08:16 a/p: 57yo male with cough, congestion, sore throat and body aches will check flu swab 12/17/17 08:17 flu swab is + infuenza a given 2 day hx of symptoms and ESRD will start tamiflu 12/17/17 08:17 discussed plan with the patient who agrees with the plan. Will take renally dosed tamiflu this week. Discussed hand washing and precautions to decrease transmission of the flu. answered all questions. Pt stable for d/c to home.
[2017-12-17 08:26] VITALS: BP 121/73; PULSE 80; TEMP 98.5
== END 2017-12-17 08:26 | disposition home or self-care (01) ==
LOC: JER 06:07
DX: J09.X2 Influenza due to identified novel influenza A virus with other respiratory manifestations (principal); I12.0 Hypertensive chronic kidney disease with stage 5 chronic kidney disease or end stage renal disease; N18.6 End stage renal disease; N17.8 Other acute kidney failure; Z99.2 Dependence on renal dialysis
CPT/HCPCS: 87804; 99281-25